=== PATIENT | female | born 1935 | race Caucasian/White ===

== ENCOUNTER 2017-11-20 08:52 | Observation (INO) | payer OTHER, BC ==
[2017-11-20] MEDS ORDERED: ALBUTEROL 2.5 MG/3 ML NEB SOL ONE (09:28)
[2017-11-20] MEDS ORDERED: IPRATROPIUM BROM 0.5MG/2.5ML ONE (09:28)
[2017-11-20] MEDS ORDERED: CEFTRIAXONE/SWI 1gm 1 GM/10 ML SYR ONE ×2 (09:28→10:57)
[2017-11-20] MEDS ORDERED: NA CHLORIDE 0.9% 1,000 ML ONE ×2 (09:28→20:56)
[2017-11-20] MEDS ORDERED: AZITHROMYCIN 500 MG/250 ML BAG ONE (09:28)
[2017-11-20 09:34] LABS: Absolute Lymphocytes (CBC) 0.8 K/uL (0.7-4.9); Absolute Monocytes 1.2 K/uL (0.1-1.3); Absolute Neutrophil 15.6 K/uL (1.8-8.0); Basophils % 0.1 % (0-1.3); Hematocrit 39.6 % (36.0-45.0); Lymphocytes % 4.7 % (15.3-44.8); MCH 34.8 pg (27.0-35.0); MCV 97.4 fL (80-100); MPV 7.3 fL (7.6-11.3); RBC Red Blood Cell Count 4.06 M/uL (3.86-4.86)
[2017-11-20 09:55] LABS: Protime INR 1.11
[2017-11-20 10:01] LABS: ALT/SGPT 90 U/L (12-78); AST/SGOT 43 U/L (15-37); Albumin 3.4 g/dL (3.4-5.0); Alkaline Phosphatase 64 U/L (45-117); BUN Blood Urea Nitrogen 15 mg/dL (7-18); Bicarbonate 27 mmol/L (21-32); Bilirubin Direct 0.4 mg/dL (0-0.2); CKMB Creatine Kinase MB < 1.0 ng/mL (0.3-3.6); Creatine Phosphokinase 45 U/L (26-192); Glucose Level 131 mg/dL (74-106); Lipase 80 U/L (73-393); NT PRO-BNP 514 pg/mL (<450); Potassium 4.1 mmol/L (3.5-5.1); Sodium Level 140 mmol/L (136-145)
--- NOTE | 2017-11-20 10:29 | ER ---
Nurse's Notes [facility] Name: Batsheva Al Age: 81 yrs Sex: Female : 1935 Arrival Date: 11/20/2017 Time: 08:57 Bed 14 Private MD: Shaji Munguia Atiq Diagnosis: Fever, unspecified;Cough;Pneumonia due to other specified bacteria;Other chest pain-pleurtic Presentation: 11/20 00:03 Presenting complaint: Patient states: fever and chills last night, pain in right upper iw back with deep breathing. Initial Sepsis Screen: Does the patient meet any 2 criteria? No. Patient's initial sepsis screen is negative. Does the patient have a suspected source of infection? No. Patient's initial sepsis screen is negative. 09:03 Transition of care: patient was not received from another setting of care. Onset of tw2 symptoms was November 20, 2017. Risk Assessment: Do you want to hurt yourself or someone else? Patient reports no desire to harm self or others. Care prior to arrival: None. 09:03 Acuity: MORTEZA 3 tw2 09:03 Method Of Arrival: Ambulatory tw2 Historical: - Allergies: 09:09 No Known Allergies; tw2 - Home Meds: 09:09 metoprolol succinate 75 mg oral Tb24 1 tab once daily [Active]; losartan 50 mg oral tab tw2 1 tab once daily [Active]; ProAir HFA 90 mcg/actuation inhalation HFAA 1 puff every 4 hours [Active]; - PMHx: 09:09 Hypertension; Pneumonia; tw2 - PSHx: 09:09 Appendectomy; Hernia repair; Carotid surgery; tw2 09:09 foot surgery; tw2 - Immunization history:: Adult Immunizations up to date. - Ebola Screening: : Patient denies travel to an Ebola-affected area in the 21 days before illness onset. - Social history:: Smoking status: Patient/guardian denies using tobacco. Screenin:03 Abuse screen: Denies threats or abuse. Nutritional screening: No deficits noted. tw2 Tuberculosis screening: No symptoms or risk factors identified. Fall Risk None identified. Assessment: 09:05 General: Appears in no apparent distress. well groomed, Behavior is calm, cooperative, tw2 appropriate for age. Pain: Complains of pain in right posterior lower lobe and right posterior middle lobe. Neuro: Level of Consciousness is awake, alert, obeys commands, Oriented to person, place, time, situation. Cardiovascular: Denies chest pain, shortness of breath, Heart tones S1 S2 Capillary refill < 3 seconds Patient's skin is warm and dry. GI: No signs and/or symptoms were reported involving the gastrointestinal system. Abdomen is flat, Bowel sounds present X 4 quads. : No signs and/or symptoms were reported regarding the genitourinary system. EENT: Reports nasal congestion. Derm: No signs and/or symptoms reported regarding the dermatologic system. Derm: Skin is intact, is healthy with good turgor, Skin is pink, warm \T\ dry. Skin temperature is warm. 09:05 Respiratory: Airway is patent Respiratory effort is even, unlabored, Respiratory tw2 pattern is regular, symmetrical, Breath sounds with wheezes in right middle lobe and right lower lobe. 09:50 Reassessment: Patient appears in no apparent distress at this time. No changes from tw2 previously documented assessment. Patient and/or family updated on plan of care and expected duration. Pain level reassessed. Patient is alert, oriented x 3, equal unlabored respirations, skin warm/dry/pink. 10:05 Reassessment: xray at bedside at this time. tw2 11:11 Reassessment: Patient appears in no apparent distress at this time. No changes from tw2 previously documented assessment. Patient and/or family updated on plan of care and expected duration. Pain level reassessed. Patient is alert, oriented x 3, equal unlabored respirations, skin warm/dry/pink. Vital Signs: 09:06 BP 148 / 89; Pulse 79; Resp 17; Temp 99.1(O); Pulse Ox 96% on R/A; Pain 4/10; tw2 09:50 BP 122 / 65; Pulse 74; Resp 17; Pulse Ox 96% on R/A; tw2 11:11 BP 130 / 71; Pulse 78; Resp 17; Pulse Ox 95% ; tw2 ED Course: 08:57 Patient arrived in ED. rg4 08:57 Shaji Munguia MD is Private Physician. rg4 09:02 Maria L Pa RN is Primary Nurse. tw2 09:03 Arm band placed on. tw2 09:03 Bed in low position. Call light in reach. radiation monitor on. Pulse ox on. NIBP on. tw2 09:04 Triage completed. tw2 09:05 Niels Contreras MD is Attending Physician. [facility] 09:19 Radiology exam delayed due to lab results not completed at this time. (BUN/Creatinine). 2 09:24 Initial lab(s) drawn, by me, sent to lab. First set of blood cultures drawn by me. 3 Inserted saline lock: 20 gauge in right antecubital area, using aseptic technique. Blood collected. 09:39 Second set of blood cultures drawn by me, by venipuncture 23G to left ac. 3 09:46 Radiology exam delayed due to lab results not completed at this time. (BUN/Creatinine). 2 09:46 Blood Culture Adult (2) Sent. tw2 09:51 EKG done, by ED staff, reviewed by Niels Contreras MD. 3 10:00 Radiology exam delayed due to lab results not completed at this time. (BUN/Creatinine). 2 10:13 X-ray completed. Portable x-ray completed in exam room. Patient tolerated procedure ag1 well. 10:[address] via stretcher. 1 10:16 XRAY Chest (1 view) In Process Unspecified. EDMS 10:17 CT completed. Patient tolerated procedure well. Patient moved back from CT. 1 10:20 CT Chest For PE Angio In Process Unspecified. EDMS 10:26 Lily Shaikh MD is Hospitalizing Provider. [facility] 11:10 Urine collected: clean catch specimen, brenda colored. 3 11:18 No provider procedures requiring assistance completed. Patient admitted, IV remains in tw2 place. Administered Medications: 09:30 Drug: Rocephin - (cefTRIAXone) 1 grams {Note: IVP available only, provider aware.} tw2 Route: IVPB; Infused Over: 5 mins; Site: right antecubital; 09:46 Follow up: Response: No adverse reaction; IV Status: Completed infusion tw2 09:30 Drug: Albuterol 2.5 mg Route: Inhalation; tw2 09:30 Drug: AtroVENT Aerosol 0.5 mg Route: Inhalation; tw2 09:46 Drug: NS 0.9% 500 ml Route: IV; Rate: bolus; Site: right antecubital; tw2 10:07 Follow up: Response: No adverse reaction; IV Status: Completed infusion; IV Intake: tw2 500ml 09:46 Drug: NS 0.9% 1000 ml Route: IV; Rate: 125 ml/hr; Site: right antecubital; tw2 11:22 Follow up: IV Status: Infusion continued upon admission tw2 09:46 Drug: Zithromax 500 mg Route: IVPB; Infused Over: 1 hrs; Site: right antecubital; tw2 11:10 Follow up: Response: No adverse reaction; IV Status: Completed infusion tw2 11:00 Drug: Rocephin - (cefTRIAXone) 1 grams {Note: ivp availble only, provider aware.} tw2 Route: IVPB; Infused Over: 5 mins; Site: right antecubital; 11:09 Follow up: Response: No adverse reaction; IV Status: Completed infusion tw2 Intake: 10:07 IV: 500ml; Total: 500ml. tw2 Outcome: 10:28 Decision to Hospitalize by Provider. francisco 11:22 Admitted to Med/surg accompanied by tech, via wheelchair, room 211, Report called to tw2 tawnya Banks 11:22 Condition: stable 11:22 Instructed on the need for admit. 11:27 Patient left the ED. tw2 Signatures: Dispatcher [employer] EDMS Niels Contreras MD MD cha Williams, Irene, RN Debbie Romero cw1 Patricia Pretty1 Maria L Pa RN RN tw2 Naheed Ya4 Sera Jones 2 Trena Ivory 3 Corrections: (The following items were deleted from the chart) 09:07 09:06 BP 148 / 89; Pulse 79bpm; Resp 17bpm; Pulse Ox 96% RA; Temp 99.1F Oral; tw2 tw2 09:53 09:05 Respiratory: Airway is patent Respiratory effort is even, unlabored, Respiratory tw2 pattern is regular, symmetrical, Breath sounds are clear bilaterally. tw2
--- NOTE | 2017-11-20 10:29 | EDPHYS ---
Physician Documentation [facility] Name: Batsheva Al Age: 81 yrs Sex: Female : 1935 Arrival Date: 11/20/2017 Time: 08:57 Bed 14 Private MD: Shaji Munguia Atiq ED Physician Niels Contreras HPI: 11/20 09:15 This 81 yrs old Female presents to ER via Ambulatory with complaints of francisco Fever, Back Pain. 09:15 The patient reports fever, that was measured at 102 degrees Fahrenheit. Onset: The francisco symptoms/episode began/occurred 2 day(s) ago. Modifying factors: there are no obvious modifying factors. Associated signs and symptoms: Pertinent positives:. Severity of symptoms: At their worst the symptoms were mild moderate in the emergency department the symptoms are unchanged. The patient has not experienced similar symptoms in the past. Historical: - Allergies: 09:09 No Known Allergies; tw2 - Home Meds: 09:09 metoprolol succinate 75 mg oral Tb24 1 tab once daily [Active]; losartan 50 mg oral tab tw2 1 tab once daily [Active]; ProAir HFA 90 mcg/actuation inhalation HFAA 1 puff every 4 hours [Active]; - PMHx: 09:09 Hypertension; Pneumonia; tw2 - PSHx: 09:09 Appendectomy; Hernia repair; Carotid surgery; tw2 09:09 foot surgery; tw2 - Immunization history:: Adult Immunizations up to date. - Ebola Screening: : Patient denies travel to an Ebola-affected area in the 21 days before illness onset. - Social history:: Smoking status: Patient/guardian denies using tobacco. ROS: 09:16 Eyes: Negative for injury, pain, redness, and discharge, ENT: Negative for injury, francisco pain, and discharge, Neck: Negative for injury, pain, and swelling, Cardiovascular: Negative for chest pain, palpitations, and edema, Abdomen/GI: Negative for abdominal pain, nausea, vomiting, diarrhea, and constipation, Back: Negative for injury and pain, : Negative for injury, bleeding, discharge, and swelling, MS/Extremity: Negative for injury and deformity, Skin: Negative for injury, rash, and discoloration, Neuro: Negative for headache, weakness, numbness, tingling, and seizure, Psych: Negative for depression, anxiety, suicide ideation, homicidal ideation, and hallucinations, Allergy/Immunology: Negative for hives, rash, and allergies, Endocrine: Negative for neck swelling, polydipsia, polyuria, polyphagia, and marked weight changes, Hematologic/Lymphatic: Negative for swollen nodes, abnormal bleeding, and unusual bruising. 09:16 Constitutional: Positive for chills, fever. 09:16 Respiratory: Positive for dyspnea on exertion, shortness of breath, wheezing, expiratory, of the right posterior middle lobe and right posterior lower lobe. Exam: 09:16 Constitutional: This is a well developed, well nourished patient who is awake, alert, francisco and in no acute distress. Head/Face: Normocephalic, atraumatic. Eyes: Pupils equal round and reactive to light, extra-ocular motions intact. Lids and lashes normal. Conjunctiva and sclera are non-icteric and not injected. Cornea within normal limits. Periorbital areas with no swelling, redness, or edema. ENT: Nares patent. No nasal discharge, no septal abnormalities noted. Tympanic membranes are normal and external auditory canals are clear. Oropharynx with no redness, swelling, or masses, exudates, or evidence of obstruction, uvula midline. Mucous membranes moist. Neck: Trachea midline, no thyromegaly or masses palpated, and no cervical lymphadenopathy. Supple, full range of motion without nuchal rigidity, or vertebral point tenderness. No Meningismus. Chest/axilla: Normal chest wall appearance and motion. Nontender with no deformity. No lesions are appreciated. Cardiovascular: Regular rate and rhythm with a normal S1 and S2. No gallops, murmurs, or rubs. Normal PMI, no JVD. No pulse deficits. Abdomen/GI: Soft, non-tender, with normal bowel sounds. No distension or tympany. No guarding or rebound. No evidence of tenderness throughout. Back: No spinal tenderness. No costovertebral tenderness. Full range of motion. Female : Normal external genitalia. Skin: Warm, dry with normal turgor. Normal color with no rashes, no lesions, and no evidence of cellulitis. MS/ Extremity: Pulses equal, no cyanosis. Neurovascular intact. Full, normal range of motion. Neuro: Awake and alert, GCS 15, oriented to person, place, time, and situation. Cranial nerves II-XII grossly intact. Motor strength 5/5 in all extremities. Sensory grossly intact. Cerebellar exam normal. Normal gait. Psych: Awake, alert, with orientation to person, place and time. Behavior, mood, and affect are within normal limits. 09:16 Respiratory: the patient does not display signs of respiratory distress, Respirations: normal, Breath sounds: rales, that are mild, that are moderate, are heard in the right posterior middle lobe and right posterior lower lobe, bronchial sounds, decreased breath sounds, rhonchi. Vital Signs: 09:06 BP 148 / 89; Pulse 79; Resp 17; Temp 99.1(O); Pulse Ox 96% on R/A; Pain 4/10; tw2 09:50 BP 122 / 65; Pulse 74; Resp 17; Pulse Ox 96% on R/A; tw2 11:11 BP 130 / 71; Pulse 78; Resp 17; Pulse Ox 95% ; tw2 MDM: 09:05 Patient medically screened. [facility] 09:18 Data reviewed: vital signs, nurses notes, lab test result(s), EKG, radiologic studies, [facility] CT scan, plain films. 11/20 09:13 Order name: Basic Metabolic Panel; Complete Time: 10:23 [facility] 11/20 09:13 Order name: CBC with Diff [facility] 11/20 09:13 Order name: Ckmb; Complete Time: 10:23 [facility] 11/20 09:13 Order name: CPK; Complete Time: 10:23 [facility] 11/20 09:13 Order name: LFT's; Complete Time: 10:23 [facility] 11/20 09:13 Order name: Magnesium; Complete Time: 10:23 [facility] 11/20 09:13 Order name: NT PRO-BNP; Complete Time: 10:23 [facility] 11/20 09:13 Order name: PT-INR; Complete Time: 10:23 [facility] 11/20 09:13 Order name: Ptt, Activated; Complete Time: 10:23 [facility] 11/20 09:13 Order name: Troponin (emerg Dept Use Only); Complete Time: 10:23 [facility] 11/20 09:13 Order name: Lipase; Complete Time: 10:23 [facility] 11/20 09:13 Order name: Blood Culture Adult (2) [facility] 11/20 09:48 Order name: CBC Smear Scan [facility] 11/20 11:16 Order name: Urine Dipstick--Ancillary (enter results) mb4 11/20 09:13 Order name: XRAY Chest (1 view) [facility] 11/20 09:13 Order name: EKG; Complete Time: 09:14 [facility] 11/20 09:13 Order name: Cardiac monitoring; Complete Time: 09:22 [facility] 11/20 09:13 Order name: EKG - Nurse/Tech; Complete Time: 09:50 [facility] 11/20 09:13 Order name: IV Saline Lock; Complete Time: 09:41 [facility] 11/20 09:13 Order name: CT Chest For PE Angio [facility] 11/20 09:59 Order name: Diet Ada [address]; Complete Time: 10:00 11/20 10:45 Order name: CONS Physician Consult [facility] 11/20 11:20 Order name: Urine Dipstick-Ancillary [facility] 11/20 09:13 Order name: Labs collected and sent; Complete Time: 09:41 [facility] 11/20 09:13 Order name: O2 Per Protocol; Complete Time: 09:22 [facility] 11/20 09:13 Order name: O2 Sat Monitoring; Complete Time: 09:22 [facility] 11/20 09:13 Order name: Urine Dipstick-Ancillary (obtain specimen); Complete Time: 11:11 [facility] Administered Medications: 09:30 Drug: Rocephin - (cefTRIAXone) 1 grams {Note: IVP available only, provider aware.} tw2 Route: IVPB; Infused Over: 5 mins; Site: right antecubital; 09:46 Follow up: Response: No adverse reaction; IV Status: Completed infusion tw2 09:30 Drug: Albuterol 2.5 mg Route: Inhalation; tw2 09:30 Drug: AtroVENT Aerosol 0.5 mg Route: Inhalation; tw2 09:46 Drug: NS 0.9% 500 ml Route: IV; Rate: bolus; Site: right antecubital; tw2 10:07 Follow up: Response: No adverse reaction; IV Status: Completed infusion; IV Intake: tw2 500ml 09:46 Drug: NS 0.9% 1000 ml Route: IV; Rate: 125 ml/hr; Site: right antecubital; tw2 11:22 Follow up: IV Status: Infusion continued upon admission tw2 09:46 Drug: Zithromax 500 mg Route: IVPB; Infused Over: 1 hrs; Site: right antecubital; tw2 11:10 Follow up: Response: No adverse reaction; IV Status: Completed infusion tw2 11:00 Drug: Rocephin - (cefTRIAXone) 1 grams {Note: ivp availble only, provider aware.} tw2 Route: IVPB; Infused Over: 5 mins; Site: right antecubital; 11:09 Follow up: Response: No adverse reaction; IV Status: Completed infusion tw2 Disposition: 11/20/17 10:28 Hospitalization ordered by Lily Shaikh for Inpatient Admission. Preliminary diagnosis are Fever, unspecified, Cough, Pneumonia due to other specified bacteria, Other chest pain - pleurtic. - Bed requested for Telemetry/MedSurg (Inpatient). - Status is Inpatient Admission. tw2 - Condition is Stable. - Problem is new. - Symptoms have improved. UTI on Admission? No Signatures: Dispatcher [employer] EDTiffanie Eastman RN RN Niels Leung MD MD cha Wise, Tara, RN RN tw2 Corrections: (The following items were deleted from the chart) 11:11 10:28 Hospitalization Ordered by Lily Shaikh MD for Inpatient Admission. dw Preliminary diagnosis is Fever, unspecified; Cough; Pneumonia due to other specified bacteria; Other chest pain - pleurtic. Bed requested for Telemetry/MedSurg (Inpatient). Status is Inpatient Admission. Condition is Stable. Problem is new. Symptoms have improved. UTI on Admission? No. francisco 11:27 11:11 11/20/2017 10:28 Hospitalization Ordered by Lily Shaikh MD for Inpatient tw2 Admission. Preliminary diagnosis is Fever, unspecified; Cough; Pneumonia due to other specified bacteria; Other chest pain - pleurtic. Bed requested for Telemetry/MedSurg (Inpatient). Status is Inpatient Admission. Condition is Stable. Problem is new. Symptoms have improved. UTI on Admission? No. dw
--- NOTE | 2017-11-20 10:30 | RAD REPORT ---
EXAM DESCRIPTION: CT - Chest For Pe Angio - 11/20/2017 10:20 am CLINICAL HISTORY: Chest pain. CHEST PAIN COMPARISON: Chest Single View dated 11/20/2017 TECHNIQUE: CT angiogram of the pulmonary arteries was performed with MIP. All CT scans are performed using dose optimization technique as appropriate and may include automated exposure control or mA/KV adjustment according to patient size. FINDINGS: Respiratory artifact is present, reducing study quality. No evidence of pulmonary thromboembolism. No acute aortic finding demonstrated. Moderate airspace opacities are present in the right lower lobe posteriorly, most compatible with dev eloping pneumonia. No significant pericardial or pleural fluid. No concerning bony finding. IMPRESSION: No evidence of pulmonary thromboembolism. Moderate airspace opacity in the right lower lobe posteriorly, most compatible with developing pneumo milady.
--- NOTE | 2017-11-20 11:09 | RAD REPORT ---
EXAM DESCRIPTION: RAD - Chest Single View - 11/20/2017 10:17 am CLINICAL HISTORY: COUGH Chest pain. COMPARISON: CHEST PA AND LAT 2 VIEW dated 01/14/2009; CHEST PA AND LAT 2 VIEW dated 09/25/2004 FINDINGS: Portable technique limits examination quality. Ill-defined opacities are present in the right lung base, likely representing pneumonia. The lungs ar e otherwise clear. The heart is normal in size. No displaced fractures. IMPRESSION: Right lower lobe pneumonia.
[2017-11-20 11:20] LABS: Urine Blood NEGATIVE (NEG); Urine Glucose NEGATIVE (NEG); Urine Protein NEGATIVE (NEG); Urine pH 6.5 (5.0-7.0)
[2017-11-20] MEDS ORDERED: ACETAMINOPHEN 500 MG TAB PO PRN (12:02)
[2017-11-20] MEDS ORDERED: ONDANSETRON 4 MG/2 ML VIAL IV PRN (12:02)
[2017-11-20] MEDS ORDERED: ZOLPIDEM TARTRATE 5 MG TABLET PO PRN (12:02)
[2017-11-20 12:50] VITALS: BMI 25.8
--- NOTE | 2017-11-20 13:09 | PN ---
Subjective: Currently, the patient lying in bed. She will need to have massive amount of diarrhea, 8 bowel movements yesterday, 3 this morning. She continued to have abdominal cramps. No fever or ch ills. No night sweats. No nausea, vomiting. Objective: Vital Signs: Currently, vital signs 130/84, respiratory rate 18, pulse 78, temperature 9 6.8. General: The patient alert and oriented x3, does not look in any distress. HEENT: Atraumatic, normocephalic. PERRLA. Oral mucosa is moist. Neck: Supple. No JVD. No carotid bruits. Chest: Clear to auscultation. Good air entry. Heart: Regular rate and rhythm. S1, S2 normal. No gallop or murmur. Abdomen: Minimal tenderness to palpation in the epigastric area. No rebound. No guarding. Positiv e bowel sounds. Extremities: No clubbing, cyanosis, or edema. No calf tenderness. Laboratory Data: Labs today showed CBC within normal. CMP within normal except for chloride 116, ca rbon dioxide 20, glucose 129, calcium 7.3, alkaline phosphatase 44, globulin 3.6. Stool culture was positive for C diff. Urine culture showed between 10,000 and 20,000 colony of mixed dragan. Assessment And Plan: 1.Zukel-nm-tiyydmf exacerbation. I doubt the patient had diarrhea most likely secondary to her Clos tridium difficile. I will try to switch her methylprednisone to oral prednisone at this point. 2.Clostridium difficile colitis. Continue oral vancomycin. The patient is not doing much better. We will continue observation in the hospital overnight and keep her on IV hydration given severity of diarrhea. The patient want Imodium, but we could not offer that due to the Clostridium difficile. 3.Intractable nausea, vomiting, improved. 4.History of parathyroidectomy. 5.Hypercalcemia, we will replace. 6.Symptomatic treatment for pain. 7.Insomnia, continue Restoril. 8.History of migraine, on Imitrex. 9.Discharge plan in the a.m. hopefully if the patient's diarrhea getting better. ANDREWS/ANISHA Voice ID: [id number] Report ID: [id number]
[2017-11-20 13:20] LABS: Blood Morphology Comment NOT SEEN (NOT SEEN); Platelet Estimate ADEQ; Urine White Blood Cell Casts OK
[2017-11-20] MEDS ORDERED: TRAMADOL HCL 50 MG TAB PO PRN (13:40)
[2017-11-20 13:54] LABS: Albumin 3.1 g/dL (3.4-5.0); Bilirubin Total 0.5 mg/dL (0.2-1.0); Potassium 4.4 mmol/L (3.5-5.1); Protein, Total 6.4 g/dL (6.4-8.2)
[2017-11-20] MEDS ORDERED: PNEUMOCOCCAL VACCINE 0.5 ML IMVAC ONE (14:00)
[2017-11-20] MEDS: ALBUTEROL 2.5 MG/3 ML NEB SOL NEB SCH ×2 (14:14→19:48)
--- NOTE | 2017-11-20 15:20 | HP ---
Date of Admission: 11/20/2017 Reason For Admission: Fever, back pain, cough. History Of Present Illness: This is an 81-year-old female with history of hypertension, pneumonia, p eripheral vascular disease, presented with history of 2 days of progressive fever, temperature up to 102 in the emergency room, cough with white sputum, back pain. In the ER, she was evaluated. Her wh ite blood cells were all the way to 17,000 with left shift. X-ray and CAT scan of the chest done nikolai wed no PE but moderate airspace opacities in the right lower lobe posteriorly compatible with pneumon ia. The patient was started on IV antibiotic with ceftriaxone and Zithromax. She was admitted for f urther treatment. Currently, she is lying in bed. She looks comfortable. She had no chest pain. N o nausea. No vomiting. No abdominal pain. No diarrhea. No dysuria. Review of systems, otherwise as below. Past Medical History: Significant for hypertension, pneumonia. Past Surgical History: Significant for appendectomy, hernia repair, carotid surgery, foot surgery. Allergies: NONE. Social History: The patient is . She has 2 kids. 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 She does not smoke, drink, or use any drugs. Family History: Significant for father of breast cancer. Mother of old age. Home Medications: She is on metoprolol 25 mg orally once a day, ProAir inhaler 1 puff every 4 hours as needed, losartan 50 mg once a day. Review of Systems: Denies any change in weight or appetite. She has fever and chills. No night sweats. No syncope. S he have cough. No shortness of breath. No nausea, vomiting, abdominal pain, change in bowel movemen t, diarrhea, constipation, dysuria, frequency, urgency, or hematuria. No chest pain. No palpitation s. No PND or orthopnea. No depression, anxiety, seizure, or stroke. Physical Examination: Vital Signs: Currently blood pressure is 130/71, respiratory rate 17, pulse 78, temperature 99.1. General: The patient is alert and oriented x3. Does not look in any distress. HEENT: Atraumatic, normocephalic. PERRLA. Oral mucosa is moist. Neck: Supple. No JVD. No carotid bruits. Chest: Clear to auscultation with her right lower lobe crackles. There is no expiratory wheezing. Heart: Regular rate and rhythm. S1, S2 normal. No gallop or murmur. Abdomen: Soft, nontender. No masses. No hepatosplenomegaly. Positive bowel sounds. Extremities: No clubbing, cyanosis, or edema. No calf tenderness. Neurologic: Grossly intact. Cranial nerves exam 2 through 12 intact. Normal sensation. Normal ref lexes. Normal muscle strength. Laboratory Data: Labs today in the emergency room showed white blood cells 17.7, left shift with oli trophils of 88.6, hemoglobin and platelet normal. PT/INR within normal. Chemistry showed all within normal except for GFR of 60, glucose 131, direct bilirubin 0.4, AST of 43, ALT of 90. BNP of 514, g lobulin 3.6, lipase of 80. Assessment/plan: An 81-year-old with past medical history of hypertension, pneumonia, presented agai n with fever, cough, and found to have right lower lobe infiltrate. 1.Right lower lobe pneumonia. We will continue IV antibiotic with ceftriaxone and Zithromax. Blood culture already done. We will proceed with sputum culture. Place patient on nebulizer every 6 hour s. 2.Elevated BNP. I will check echocardiogram. 3.Hypertension. We will resume patient on losartan and metoprolol. 4.Deep vein thrombosis prophylaxis, Lovenox. 5.Symptomatic treatment for back pain. ROYAL Voice ID: [id number]
[2017-11-20] MEDS ORDERED: IPRATROPIUM BROM 0.5MG/2.5ML NEB SCH (16:00)
[2017-11-20] MEDS: ENOXAPARIN 40 MG/0.4 ML SQ SCH (18:25)
[2017-11-20] MEDS: IPRATROPIUM BROM 0.5MG/2.5ML NEB SCH (19:48)
[2017-11-20] MEDS: METOPROLOL TAR 25 MG TAB PO SCH (20:38)
[2017-11-20] MEDS: CEFTRIAXONE/SWI 1gm 1 GM/10 ML SYR IV SCH (20:39)
[2017-11-20] MEDS ORDERED: NA CHLORIDE 0.9% 250 ML IV PRN (20:51)
[2017-11-20] MEDS ORDERED: NA CHLORIDE 0.9% 250 ML IV ONE (20:55)
[2017-11-20] MEDS: NA CHLORIDE 0.9% 1,000 ML IV SCH (21:30)
[2017-11-21 00:46] LABS: Absolute Lymphocytes (CBC) 2.6 K/uL (0.7-4.9); Absolute Neutrophil 9.9 K/uL (1.8-8.0); Basophils % 0.4 % (0-1.3); Eosinophils % 0.3 % (0-4.4); Hematocrit 34.1 % (36.0-45.0); Lymphocytes % 19.4 % (15.3-44.8); MCH 34.3 pg (27.0-35.0); MPV 8.2 fL (7.6-11.3); Monocytes % 7.5 % (3.3-12.3); RBC Red Blood Cell Count 3.45 M/uL (3.86-4.86)
[2017-11-21 01:05] LABS: Albumin 2.7 g/dL (3.4-5.0); Bilirubin Total 0.6 mg/dL (0.2-1.0); Potassium 3.6 mmol/L (3.5-5.1); Protein, Total 5.8 g/dL (6.4-8.2)
[2017-11-21] MEDS: IPRATROPIUM BROM 0.5MG/2.5ML NEB SCH ×4 (02:00→19:29)
[2017-11-21] MEDS: ALBUTEROL 2.5 MG/3 ML NEB SOL NEB SCH ×4 (02:00→19:29)
[2017-11-21 05:24] LABS: Absolute Lymphocytes (CBC) 2.3 K/uL (0.7-4.9); Absolute Monocytes 0.8 K/uL (0.1-1.3); Absolute Neutrophil 7.1 K/uL (1.8-8.0); Basophils % 0.2 % (0-1.3); Eosinophils % 1.1 % (0-4.4); Hematocrit 35.5 % (36.0-45.0); Lymphocytes % 22.1 % (15.3-44.8); MCH 35.3 pg (27.0-35.0); MCV 98.9 fL (80-100); MPV 7.8 fL (7.6-11.3); Monocytes % 7.6 % (3.3-12.3); RBC Red Blood Cell Count 3.59 M/uL (3.86-4.86)
[2017-11-21] MEDS: NA CHLORIDE 0.9% 1,000 ML IV SCH ×2 (05:35→10:20)
[2017-11-21] MEDS: CEFTRIAXONE/SWI 1gm 1 GM/10 ML SYR IV SCH ×2 (09:00→20:52)
[2017-11-21] MEDS: METOPROLOL TAR 50 MG TAB PO SCH ×2 (09:04→16:58)
[2017-11-21] MEDS: AZITHROMYCIN IV 500 MG in NA CHLORIDE 0.9% 250 ML IVPB SCH (09:05)
[2017-11-21] MEDS: LOSARTAN POTASSIUM 50 MG TABLET PO SCH (09:07)
--- NOTE | 2017-11-21 10:34 | EKG ---
Test Date: 2017-11-20 Test Time: 20:36:56 Crown Presser: FLOWER MEASUREMENT RESULTS: Intervals: Rate: 101 PA: 132 QRSD: 134 QT: 394 QTc: 510 [place]: P: 58 PA: 132 QRS: 82 T: 21 INTERPRETIVE STATEMENTS: Sinus tachycardia with premature atrial complexes with aberrant conduction Possible Left atrial enlargement Right bundle branch block Abnormal ECG Compared to ECG 11/20/2017 09:46:36 Atrial premature complex(es) now present Aberrant conduction of supraventricular beat(s) now present Sinus rhythm no longer present Electronically Signed On 11-21-17 10:33:53 CDT by Slick Hernandez
--- NOTE | 2017-11-21 10:40 | EKG ---
Test Date: 2017-11-20 Test Time: 09:46:36 [place] Chief: STEFAN MEASUREMENT RESULTS: Intervals: Rate: 75 [place]: 138 QRSD: 130 QT: 386 QTc: 431 [place]: P: 41 [place]: 138 QRS: 79 T: 33 INTERPRETIVE STATEMENTS: Normal sinus rhythm Possible Left atrial enlargement Right bundle branch block Abnormal ECG Compared to ECG 01/14/2009 08:10:32 Right bundle-branch block now present Electronically Signed On 11-21-17 10:39:47 CDT by Slick Hernandez
--- NOTE | 2017-11-21 11:40 | CON ---
Reason For Consultation: Abnormal N-terminal proBNP. History Of Present Illness: Mrs. Al came to the hospital with cough, fevers. She has a pulmonary infiltrate. She is being treated for pneumonia. One of the blood tests they did on admission was a n N-terminal proBNP, it is 514. We have no BNPs or N-terminal proBNPs before. She is normally a pat ient of Dr. Sánchez. She is known to have a leaky mitral valve, it does not require surgery. She daniel s had a right carotid endarterectomy. No CAD. No previous history of CHF. Medications: Outpatient medications have been metoprolol, losartan, and budesonide. Social History: She uses no tobacco. Past Medical History: Does not have diabetes or dyslipidemia. Allergies: NO KNOWN ALLERGIES. Physical Examination: Vital Signs: 5 feet 7 inches, 165 pounds. HEENT: Normal. Carotids: No bruit. Lungs: Revealed some decreased breath sounds and crackles in the right lung base. Abdomen: Soft. Heart: Within normal limits. No murmur, rub, or gallop. Extremities: No cyanosis, clubbing, or edema. Diagnostic Data: The chest x-ray reveals right lower lobe pneumonia, otherwise it is normal. Impression: The patient's N-terminal proBNP is elevated because of increased strain on the heart. T his could be from having pneumonia. She may have significant valvular heart disease, but it is more likely to be pneumonia. She does not have any congestive heart failure symptoms. Echocardiogram jil orrow would be useful to do. I will order that for tomorrow. If she is otherwise stable to be discha rged. She does not have to stay in the hospital to do the echocardiogram. Thank you very much for your kind referral of Mrs. Al. I will follow her with you. KELSEY/ANISHA Voice ID: [id number] Report ID: [id number]
[2017-11-21 13:15] LABS: T4,Total 6.4 ug/dL (4.8-13.9); Thyroid Stimulating Hormone 2.65 uIU/mL (0.36-3.74)
--- NOTE | 2017-11-21 13:52 | PN ---
Subjective: Currently, the patient is lying in bed. She looks comfortable. She has no shortness of breath. No chest pain. Overnight, she had episode of AFib and atrial flutter. Her echocardiogram is still pending. She was seen by Dr. Hernandez this morning. Her daughter is at the bedside. Objective: Vital Signs: Blood pressure 120/58, respiratory rate 20, heart rate 98, temperature 98.2 . General: She is alert and oriented x3. Does not look in any distress. She is on room air. HEENT: Atraumatic, normocephalic. Oral mucosa is moist. Neck: Supple. No JVD. No bruits. Chest: Clear to auscultation with bibasilar crackles in the right side. There is no expiratory whee zing. Heart: Regular rate and rhythm this morning. No gallop. Abdomen: Soft, nontender. No masses. Positive bowel sounds. Extremities: No clubbing, cyanosis, or edema. No calf tenderness. Neurologic: Grossly intact. Laboratory Data: Labs this morning, CBC; white blood cells down to 10.2 which is normal, hemoglobin 12.7, platelets 181. Chemistry within normal, except for a creatinine clearance of 69, glucose 112. Assessment And Plan: 1.Right lower lobe pneumonia. We will continue IV antibiotic. White blood cell is down to normal. Culture so far all negative. The patient's cough improved significantly. 2.Elevated BNP. Echocardiogram ordered in a.m. The patient had episode of atrial fibrillation with rapid ventricular response yesterday. I am not sure if that is related to her inhalers, but Cardiol ogy consult requested by Dr. Dolan and Dr. Hernandez to see the patient. 3.Hypertension history, well controlled with home medications. 4.Deep vein thrombosis prophylaxis with Lovenox. 5.Back pain, chronic, improved. Plan: Hopefully to discharge in a.m. if Cardiology clears the patient after echocardiogram done. We will check TSH today. Given the episode of atrial fibrillation and flutter last night, electrolytes all within normal limits otherwise. ANDREWS/ANISHA Voice ID: [id number] Report ID: [id number]
[2017-11-21] MEDS: ENOXAPARIN 40 MG/0.4 ML SQ SCH (16:59)
[2017-11-21] MEDS: METOPROLOL TAR 25 MG TAB PO SCH (17:02)
[2017-11-22] MEDS: ALBUTEROL 2.5 MG/3 ML NEB SOL NEB SCH ×2 (01:13→08:05)
[2017-11-22] MEDS: IPRATROPIUM BROM 0.5MG/2.5ML NEB SCH ×2 (01:13→08:05)
[2017-11-22] MEDS: METOPROLOL TAR 25 MG TAB PO SCH (05:42)
[2017-11-22] MEDS: AZITHROMYCIN IV 500 MG in NA CHLORIDE 0.9% 250 ML IVPB SCH (08:59)
[2017-11-22] MEDS: CEFTRIAXONE/SWI 1gm 1 GM/10 ML SYR IV SCH (08:59)
[2017-11-22] MEDS: LOSARTAN POTASSIUM 50 MG TABLET PO SCH (09:00)
--- NOTE | 2017-11-22 09:01 | RAD REPORT ---
EXAM DESCRIPTION: RAD - Chest Pa And Lat (2 Views) - 11/22/2017 8:48 am CLINICAL HISTORY: Follow up RLL pneumonia Chest pain. COMPARISON: Chest Single View dated 11/20/2017; CHEST PA AND LAT 2 VIEW dated 01/14/2009; CHEST PA AND LAT 2 VIEW dated 09/25/2004 FINDINGS: Ill-defined reticular opacities are noted in the right lung base laterally, appearing mild ly improved since comparative study. This is compatible with mild improvement in pneumonia. The heart is normal in size. No displaced fractures. IMPRESSION: Mild improvement in right lower lobe pneumonia since comparative study.
[2017-11-22 10:00] VITALS: O2SAT 93
--- NOTE | 2017-11-22 11:02 | P.DS ---
Admission Date: 11/20/17 Discharge Date: 11/22/17 Primary Care Provider: Dr. Munguia(Ira Renteria NP); Cardiology-Dr. Sánchez Disposition: ROUTINE DISCHARGE Discharge Condition: GOOD Reason for Admission: Cough, SOB, Fever Consultations: Cardiology-Dr. Hernandez Procedures: CT chest: COMPARISON: Chest Single View dated 11/20/2017 TECHNIQUE: CT angiogram of the pulmonary arteries was performed with MIP. All CT scans are performed using dose optimization technique as appropriate and may include automated exposure control or mA/KV adjustment according to patient size. FINDINGS: Respiratory artifact is present, reducing study quality. No evidence of pulmonary thromboembolism. No acute aortic finding demonstrated. Moderate airspace opacities are present in the right lower lobe posteriorly, most compatible with developing pneumonia. No significant pericardial or pleural fluid. No concerning bony finding. IMPRESSION: No evidence of pulmonary thromboembolism. Moderate airspace opacity in the right lower lobe posteriorly, most compatible with developing pneumonia. Chest x-ray: COMPARISON: Chest Single View dated 11/20/2017; CHEST PA AND LAT 2 VIEW dated ; CHEST PA AND LAT 2 VIEW dated 09/25/2004 FINDINGS: Ill-defined reticular opacities are noted in the right lung base laterally, appearing mildly improved since comparative study. This is compatible with mild improvement in pneumonia. The heart is normal in size. No displaced fractures. IMPRESSION: Mild improvement in right lower lobe pneumonia since comparative study. - Problems (1) Hypertension Onset Date: 11/22/17 Current Visit: Yes Status: Chronic Qualifiers: Hypertension type: essential hypertension Qualified Code(s): I10 - Essential (primary) hypertension (2) RLL pneumonia Onset Date: 11/22/17 Current Visit: Yes Status: Acute Qualifiers: Pneumonia type: due to unspecified organism Qualified Code(s): J18.1 - Lobar pneumonia, unspecified organism (3) COPD (chronic obstructive pulmonary disease) Current Visit: Yes Status: Chronic Qualifiers: COPD type: chronic bronchitis Chronic bronchitis type: unspecified Qualified Code(s): J42 - Unspecified chronic bronchitis Brief History of Present Illness: 81-year-old female with history of hypertension and COPD, presented to the emergency room with cough, fever and shortness of breath. Patient found to have right lower lobe pneumonia. Patient was admitted for treatment. Hospital Course: Patient presented with cough, shortness of breath and fever. Patient found to have right lower lobe pneumonia. Patient has done well. Patient does not require oxygen at discharge. At discharge she will continue with Levaquin 500 mg daily for 7 days. Tessalon Perles 100 mg 1 pill 3 times a day as needed for cough will be provided. Recommendation to recheck chest x-ray in 2-4 weeks to monitor resolution. Patient has COPD. Medications have been adjusted. Patient will continue with Symbicort at a higher dose of 160 mcg 2 puffs twice daily and Proair HFA 3 times a day as needed for shortness of breath. Recommendation is for the patient follow up with pulmonology in 1-2 weeks to follow up this hospitalization. As recommended above, chest x-ray will need to be recheck in 2 -4 weeks to monitor resolution. Patient has hypertension. She will continue with her medication including losartan 50 mg daily and metoprolol 50 mg daily and 25 mg of metoprolol at night. Recommendation is to maintain blood pressures less 150/80. Further adjustment can be done by her PCP. Patient was evaluated by cardiology to address her elevated BNP. This is likely from stress related to pneumonia. An echocardiogram was done. This can be followed up by her hardboard coating machine operator as an outpatient. Patient will follow up with her hardboard coating machine operator as directed. Recommendation to continue with aspirin 81 mg daily. Vital Signs/Physical Exam: Temp Pulse Resp BP Pulse Ox 98.4 F 83 18 168/84 H 94 11/22/17 08:00 11/22/17 08:00 11/22/17 08:00 11/22/17 08:00 11/22/17 08:00 General: Alert, In no apparent distress, Oriented x3, Cooperative HEENT: Atraumatic Neck: Supple Respiratory: Crackles/rales (Minimal crackles to the right base), Other (Good air movement bilaterally) Cardiovascular: Normal pulses, Regular rate/rhythm Gastrointestinal: Normal bowel sounds, Soft and benign, Non-distended, No tenderness, No masses, No rebound, No guarding Musculoskeletal: No erythema, No tenderness, No warmth Integumentary: No tenderness/swelling, No erythema, No warmth, No cyanosis Neurological: Normal speech, Normal strength at 5/5 x4 extr, Normal tone, Normal affect Lymphatics: No axilla or inguinal lymphadenopathy Laboratory Data at Discharge: WBC 10.2 K/uL (4.3-10.9) D 11/21/17 04:48 Hgb 12.7 g/dL (12.0-15.0) 11/21/17 04:48 Hct 35.5 % (36.0-45.0) L 11/21/17 04:48 Plt Count 181 K/uL (152-406) 11/21/17 04:48 PT 13.1 SECONDS (9.5-12.5) H 11/20/17 09:24 INR 1.11 11/20/17 09:24 APTT 27.9 SECONDS (24.3-36.9) 11/20/17 09:24 Sodium 143 mmol/L (136-145) 11/20/17 23:48 Potassium 3.6 mmol/L (3.5-5.1) 11/20/17 23:48 BUN 12 mg/dL (7-18) 11/20/17 23:48 Creatinine 0.80 mg/dL (0.55-1.3) 11/20/17 23:48 Glucose 112 mg/dL (74-106) H 11/20/17 23:48 Magnesium 2.0 mg/dL (1.8-2.4) 11/20/17 09:24 Total Bilirubin 0.6 mg/dL (0.2-1.0) 11/20/17 23:48 AST 26 U/L (15-37) 11/20/17 23:48 ALT 61 U/L (12-78) 11/20/17 23:48 Alkaline Phosphatase 52 U/L (45-117) 11/20/17 23:48 Lipase 80 U/L (73-393) 11/20/17 09:24 Home Medications: Losartan Potassium [Cozaar*] 50 mg PO DAILY 11/20/17 Metoprolol Tartrate [Lopressor*] 25 mg PO BEDTIME 11/20/17 Metoprolol Tartrate [Lopressor] 50 mg PO DAILY 11/20/17 Albuterol Sulfate [Proair Hfa] 8.5 gm IH TID PRN #1 hfa.aer.ad 11/22/17 Aspirin [Aspirin EC 81 MG] 81 mg PO DAILY #90 tablet. 11/22/17 Budesonide/Formoterol Fumarate [Symbicort 160-4.5 Mcg Inhaler] 2 puff IH BID #1 hfa.aer.ad 11/22/17 Levofloxacin [Levaquin] 500 mg PO DAILY #7 tablet 11/22/17 New Medications: Albuterol Sulfate [Proair Hfa] 8.5 gm IH TID PRN #1 hfa.aer.ad PRN Reason: Shortness Of Breath Aspirin [Aspirin EC 81 MG] 81 mg PO DAILY #90 tablet. Budesonide/Formoterol Fumarate [Symbicort 160-4.5 Mcg Inhaler] 2 puff IH BID #1 hfa.aer.ad Levofloxacin [Levaquin] 500 mg PO DAILY #7 tablet Patient Discharge Instructions: 1. Patient will need to follow up with a PCP in 1 week to follow up this hospitalization. 2. Patient presented with cough, shortness of breath and fever. Patient found to have right lower lobe pneumonia. Patient has done well. Patient does not require oxygen at discharge. At discharge she will continue with Levaquin 500 mg daily for 7 days. Tessalon Perles 100 mg 1 pill 3 times a day as needed for cough will be provided. Recommendation to recheck chest x-ray in 2-4 weeks to monitor resolution. 3. Patient has COPD. Medications have been adjusted. Patient will continue with Symbicort at a higher dose of 160 mcg 2 puffs twice daily but bus 3 times a day as needed for shortness of breath. Recommendation is for the patient follow up with pulmonology in 1-2 weeks to follow up this hospitalization. As recommended above, chest x-ray will need to be recheck in 2 -4 weeks to monitor resolution. 4. Patient has hypertension. She will continue with her medication including losartan 50 mg daily and metoprolol 50 mg daily and 25 mg of metoprolol at night. Recommendation is to maintain blood pressures less 150/80. Further adjustment can be done by her PCP. 5. Patient will follow up with her hardboard coating machine operator as directed. Recommendation to continue with aspirin 81 mg daily. Diet: AHA Activity: Fall precautions Time spent managing pt's care (in minutes): 55
[2017-11-22] MEDS ORDERED: PNEUMOCOCCAL VACCINE 0.5 ML IMVAC ONE (12:00)
--- NOTE | 2017-11-22 12:21 | ECHO ---
HEIGHT: 5 ft 7 in WEIGHT: 165 lb 0 oz DATE OF STUDY: 11/22/[address]: Lily Shaikh MD 2-DIMENSIONAL: YES M.MODE: YES DOPPLER: YES COLOR FLOW: YES TDS: PORTABLE: DEFINITY: BUBBLE STUDY: DIAGNOSIS: ELEVATED BNP CARDIAC HISTORY: CATHERIZATION: NO SURGERY: NO PROSTHETIC VALVE: NO PACEMAKER: NO MEASUREMENTS (cm) DIASTOLIC (NORMALS) SYSTOLIC (NORMALS) IVSd 1.1 (0.6-1.2) LA Diam 3.6 (1.9-4.0) LVEF 64% LVIDd 3.6 (3.5-5.7) LVIDs 2.4 (2.0-3.5) %FS 34% LVPWd 1.2 (0.6-1.2) Ao Diam 2.6 (2.0-3.7) 2 DIMENSIONAL ASSESSMENT: RIGHT ATRIUM: NORMAL LEFT ATRIUM: NORMAL RIGHT VENTRICLE: NORMAL LEFT VENTRICLE: NORMAL TRICUSPID VALVE: NORMAL MITRAL VALVE: NORMAL PULMONIC VALVE: NORMAL AORTIC VALVE: NORMAL PERICARDIAL EFFUSION: NONE AORTIC ROOT: NORMAL LEFT VENTRICULAR WALL MOTION: NORMAL DOPPLER/COLOR FLOW: TRACE TO MILD MITRAL REGURGITATION. COMMENTS: NORMAL 2-DIMENSIONAL ECHOCARDIOGRAM. TRACE TO MILD MITRAL REGURGITATION. TECHNOLOGIST: HEBERT RAMESH
--- NOTE | 2017-11-22 12:26 | P.CNS ---
Date of Consult: 11/22/17 Primary Care Provider: Dr. Munguia(Ira Renteria NP); Cardiology-Dr. Sánchez Chief Complaint: Pneumonia History of Present Illness: Patient is 81 is of age well known to me admitted with sudden onset of right- sided pleuritic chest pain and a cough in addition to fever was diagnosed with a right-sided pneumonia admitted to the hospital currently doing much better patient is compliant with her bronchodilators at home Allergies No Known Allergies Allergy (Unverified 11/20/17 11:17) Home Medications: Losartan Potassium [Cozaar*] 50 mg PO DAILY 11/20/17 Metoprolol Tartrate [Lopressor*] 25 mg PO BEDTIME 11/20/17 Metoprolol Tartrate [Lopressor] 50 mg PO DAILY 11/20/17 Albuterol Sulfate [Proair Hfa] 8.5 gm IH TID PRN #1 hfa.aer.ad 11/22/17 Aspirin [Aspirin EC 81 MG] 81 mg PO DAILY #90 tablet. 11/22/17 Benzonatate [Tessalon Perle] 100 mg PO TID PRN #10 cap 11/22/17 Budesonide/Formoterol Fumarate [Symbicort 160-4.5 Mcg Inhaler] 2 puff IH BID #1 hfa.aer.ad 11/22/17 Levofloxacin [Levaquin] 500 mg PO DAILY #7 tablet 11/22/17 - Past Medical/Surgical History Diabetic: No -: HTN -: Tricuspid valve regurgitation -: Pneumonia -: Coronary artery clot removal -: Appe -: INGUINAL HERNIA REPAIR -: BUNION REMOVAL (R) -: Bilateral lens implant -: Bilateral cataract surgery - Social History Alcohol use: No CD- Drugs: No Caffeine use: No Place of Residence: Home Review of Systems 10-point ROS is otherwise unremarkable Physical Examination Temp Pulse Resp BP Pulse Ox 98.4 F 83 18 168/84 H 94 11/22/17 08:00 11/22/17 08:00 11/22/17 08:00 11/22/17 08:00 11/22/17 08:00 General: Alert, Oriented x3 HEENT: Atraumatic Neck: Supple Respiratory: Crackles/rales (Crackles on the right side) Cardiovascular: No edema, Regular rate/rhythm, Normal S1 S2 - Problems (1) RLL pneumonia Onset Date: 11/22/17 Status: Acute Plan: Patient is 81 years of age admitted with a right lower lobe pneumonia confirmed on a CT scan and chest x-ray chemistries unremarkable white count has not declined to normal cultures and negative oxygenation satisfactory vital signs stable agree with discharge on levofloxacin continue with bronchodilator Qualifiers: Pneumonia type: due to unspecified organism Qualified Code(s): J18.1 - Lobar pneumonia, unspecified organism
[2017-11-22 18:00] VITALS: BP 151/79; TEMP 98.9
== END 2017-11-22 12:14 | disposition home or self-care (01) ==
LOC: ER 08:52 → INTOOBSV 10:42 → ERHOLD 10:42 → 2ND 11:23
PROVIDERS: ADMIT Internal Medicine; ATTEND Family Medicine
DX: J18.9 Pneumonia, unspecified organism (principal); I10 Essential (primary) hypertension; I07.1 Rheumatic tricuspid insufficiency; J44.0 Chronic obstructive pulmonary disease with (acute) lower respiratory infection; I48.0 Paroxysmal atrial fibrillation; I48.92 Unspecified atrial flutter; R79.89 Other specified abnormal findings of blood chemistry; I73.9 Peripheral vascular disease, unspecified; Z79.82 Long term (current) use of aspirin; Z23 Encounter for immunization
CPT/HCPCS: 36415 ×2; 71045; 71046; 71275; 80048; 80053 ×2; 80076; 81003; 82550; 82553; 83605; 83690; 83735; 83880; 84436; 84439; 84443; 84484; 85025 ×3; 85610; 85730; 87040 ×2; 90670; 93005 ×2; 93306; 94640; 94760 ×5; 96365; 96367; 99285; G0009; G0378 ×2; J0456 ×3; J0696 ×6; J1650 ×2; J7030 ×3; Q9967; 96361

== ENCOUNTER 2021-09-08 12:18 | Inpatient (IN) | payer OTHER, BC ==
[2021-09-08] MEDS ORDERED: METOPROLOL TARTRATE 5 MG/5 ML INJ IV ONE (13:34)
[2021-09-08 13:36] LABS: Absolute Lymphocytes (CBC) 0.7 K/uL (0.7-4.9); Hematocrit 47.8 % (36.0-45.0); Lymphocytes % 8.5 % (15.3-44.8); MPV 7.1 fL (7.6-11.3); Protime INR 1.09; RBC Red Blood Cell Count 4.95 M/uL (3.86-4.86)
[2021-09-08 13:50] LABS: Albumin 3.9 g/dL (3.4-5.0); Bilirubin Direct 0.2 mg/dL (0-0.2); Bilirubin Total 0.6 mg/dL (0.2-1.0); Magnesium 2.6 mg/dL (1.8-2.4); Potassium 4.7 mmol/L (3.5-5.1); Protein, Total 7.7 g/dL (6.4-8.2); Troponin High Sensitivity 14.9 pg/mL (<58.9)
[2021-09-08] MEDS ORDERED: METOPROLOL TAR 50 MG TAB ONE (14:39)
--- NOTE | 2021-09-08 15:07 | RAD REPORT ---
EXAM DESCRIPTION: RAD - Chest Single View - 09/08/2021 2:45 pm CLINICAL HISTORY: weakness COMPARISON: Two view chest February 2018 TECHNIQUE: AP portable chest image was obtained 09/08/2021 2:45 pm . FINDINGS: No focal lung parenchymal process. Interstitial pattern is not significantly different fro m comparison. Severity could potentially mask minimal interstitial edema or infiltrate. Hilar regions are similar to comparison. Heart and vasculature are normal. No measurable pleural effusion and no p neumothorax. No acute bony abnormality seen. No acute aortic findings suspected. IMPRESSION: No acute cardiopulmonary process. Prominent baseline interstitial pattern is present potentially masking early edema or infiltrate.
--- NOTE | 2021-09-08 15:39 | RAD REPORT ---
EXAM DESCRIPTION: CT - Head Brain Wo Cont - 09/08/2021 3:18 pm CLINICAL HISTORY: general weakness COMPARISON: <Comparisons> TECHNIQUE: Axial 5 mm thick images of the head were obtained without IV contrast. All CT scans are performed using dose optimization technique as appropriate and may include automated exposure control or mA/KV adjustment according to patient size. FINDINGS: No intracranial hemorrhage, mass, edema or shift of mid-line structures. In the right fron daiana lobe along the anterior superior margin of the sylvian fissure there is a 3 centimeter area of de creased attenuation. This extends from the cortex to the right frontal horn lateral ventricle periven tricular white matter. There is loss of cerna matter - white matter differentiation with sulcal efface ment. This has the appearance of nonhemorrhagic acute/ subacute CVA. No other acute infarction changes seen. Patient has underlying mild to moderate atrophy and moderate chronic ischemic change. Ventricles are in proportion to the volume loss. No abnormal extra-axial flu id collections. Dense arterial tree calcifications are present. Mastoid air cells and visualized portions of the paranasal sinuses are clear. No acute bony findings. IMPRESSION: Acute/subacute nonhemorrhagic infarction right frontal lobe as detailed. Mild to moderate atrophy with moderate severity chronic ischemic change.
--- NOTE | 2021-09-08 15:52 | RAD REPORT ---
EXAM DESCRIPTION: CT - Abdomen Pelvis W Contrast - 09/08/2021 3:18 pm CLINICAL HISTORY: lower back pain COMPARISON: No comparisons TECHNIQUE: Biphasic, helical CT imaging of the abdomen and pelvis was performed following 100 ml non -ionic IV contrast. No oral contrast was given. All CT scans are performed using dose optimization technique as appropriate and may include automated exposure control or mA/KV adjustment according to patient size. FINDINGS: No suspicious findings in the lung bases. The liver, spleen, and pancreas show no suspicious findings. Gallbladder is absent. Dilatation of the biliary tree is not outside of normal range. Duct stones can be occult. Symmetric renal function is seen with no hydronephrosis or suspicious renal mass. No pyelonephritis o r acute parenchymal process. No bladder abnormalities. No adrenal abnormalities. Uterus absent. Ovari es are absent or atrophic. No adnexal abnormality seen. No dilated bowel loops or bowel wall thickening. Appendix is not clearly defined and is potentially s urgically absent at the time of hysterectomy. No direct or indirect evidence for appendicitis. Patien t has diverticulosis and moderate rectosigmoid stool volume. No diverticulitis. No free air, free fluid or inflammatory stranding. No hernia, mass or bulky lymphadenopathy. Right inguinal hernia repair changes are present. Advanced lumbar spine degenerative changes are present with no acute or pathologic change. Central ca nal detail is inherently limited. Patient has advanced bilateral hip joint degenerative change withou t acute finding. IMPRESSION: Contrast enhanced CT abdomen and pelvis showing no acute or emergent finding. Gallbladder is absent. The dilation of the biliary tree is not outside of normal range for a post cho lecystectomy patient. Duct stones can be occult on CT imaging. Nonacute findings detailed in the body of the report.
[2021-09-08 16:11] LABS: Urine Blood Negative (Negative); Urine Glucose Negative (Negative); Urine Protein 2+ (Negative); Urine Specific Gravity 1.025 (1.005-1.030); Urine pH 6.5 (5.0-7.0)
[2021-09-08] MEDS ORDERED: FOLIC ACID 5 MG/ML VIAL ONE (16:15)
[2021-09-08] MEDS ORDERED: ASPIRIN 81 MG CHEWABLE TABLET ONE (16:15)
[2021-09-08 16:39] LABS: Urine Bacteria <20 /HPF (<20); Urine RBC NONE SEEN /HPF (NONE SEEN)
--- NOTE | 2021-09-08 16:40 | ER ---
Nurse's Notes [facility] Name: Batsheva Al Age: 85 yrs Sex: Female : 1935 Arrival Date: 09/08/2021 Time: 12:19 Bed 4 Private MD: Diagnosis: Unspecified atrial fibrillation;Cerebral infarction, unspecified Presentation: 09/08 12:51 Chief complaint: Patient's son or daughter states: Brought her to [facility] and jd3 discharged this morning due to increase weakness and shaking when she moves. Daughter states she is having lower back pain with loss of bladder and that she is just off with slurred speech. Patient states that her back pain started on Wednesday and she is just weak. At [facility] they gave her diazepam and morphine. Coronavirus screen: Vaccine status: Patient reports receiving the 1st dose of the Covid vaccine. Client denies travel out of the [place] in the last 14 days. Ebola Screen: Patient denies travel to an Ebola-affected area in the 21 days before illness onset. Initial Sepsis Screen: Does the patient meet any 2 criteria? HR > 90 bpm. Does the patient have a suspected source of infection? No. Patient's initial sepsis screen is negative. Risk Assessment: Do you want to hurt yourself or someone else? Patient reports no desire to harm self or others. Onset of symptoms is unknown. 12:51 Method Of Arrival: Wheelchair jd3 12:51 Acuity: MORTEZA 3 jd3 12:55 An acute neurological deficit is present. Pre-hospital glucose is not applicable to aa5 this patient. Triage Assessment: 12:54 General: Appears comfortable, Behavior is cooperative. Pain: Complains of pain in jd3 lumbar area, left low back and right low back. Neuro: Level of Consciousness is awake, alert, obeys commands, Oriented to person, place, time, situation. Cardiovascular: Patient's skin is warm and dry. Chest pain is denied. Respiratory: Airway is patent Respiratory effort is even, unlabored, Respiratory pattern is regular, symmetrical. 12:55 The onset of the patients symptoms was at an unknown time. aa5 Stroke Activation: Symptom onset > 6 hours Physician: Stroke Attending; Name: ; Notified At: ; Arrived At: Physician: Chief Stroke Resident; Name: ; Notified At: ; Arrived At: Physician: Stroke Resident; Name: ; Notified At: ; Arrived At: Physician: ED Attending; Name: ; Notified At: ; Arrived At: Physician: ED Resident; Name: ; Notified At: ; Arrived At: Historical: - Allergies: 12:54 No Known Allergies; jd3 - PMHx: 12:54 Hypertension; Pneumonia; copd; jd3 - PSHx: 12:54 Total abdominal hysterectomy; right rotator cuff; jd3 - Immunization history:: Adult Immunizations up to date. - Social history:: Smoking status: Patient denies any tobacco usage or history of. Screenin:00 Abuse screen: Denies threats or abuse. Nutritional screening: No deficits noted. aa5 Tuberculosis screening: No symptoms or risk factors identified. Fall Risk Fall in past 12 months (25 points). No secondary diagnosis (0 pts). IV access (20 points). Ambulatory Aid- None/Bed Rest/Nurse Assist (0 pts). Gait- Weak (10 pts.). Mental Status- Overestimates/Forgets Limitations (15 pts.). Total Pathak Fall Scale indicates High Risk Score (45 or more points). Fall prevention measures have been instituted. Side Rails Up X 2 Placed Close to Nursing Station. Assessment: 12:55 General: Appears comfortable, Behavior is calm, cooperative. Pain: Complains of pain in aa5 back Unable to use pain scale. Does not appear to understand pain scale. Neuro: Level of Consciousness is awake, alert, obeys commands, Oriented to person, place, time, situation, Roof Bolter Helper are weak bilaterally Moves all extremities. Weakness in left leg(s) Gait is unable to assess . Speech is normal, Facial symmetry appears normal. Cardiovascular: Heart tones S1 S2 present Rhythm is atrial fibrillation with rapid ventricular response. Respiratory: Airway is patent Respiratory effort is even, unlabored, Respiratory pattern is regular, symmetrical, Breath sounds are clear bilaterally. GI: Abdomen is round non-distended, Bowel sounds present X 4 quads. Abd is soft and non tender X 4 quads. : Parent/caregiver report the patient having incontinence this morning. EENT: No signs and/or symptoms were reported regarding the EENT system. Derm: Skin is pink, warm \\T\\ dry. Musculoskeletal: Range of motion: intact in all extremities. 12:55 VAN Scoring: Arm Drift: Patients demonstrates NO arm weakness. Patient is VAN Negative. aa5 Visual Disturbance: No visual disturbance noted. Aphasia: No aphasia noted. Neglect: No neglect noted. 12:55 T-PA (Activase) Screening: Contraindications: Patient reports onset of signs and aa5 symptoms of stroke greater than 6 hours ago: Yes. 13:30 Patient has been NPO before screening. The patient is alert, and able to follow aa5 commands. The patient does not exhibit slurred or garbled speech. The patient is not exhibiting difficulty speaking. The patient does not exhibit difficulty understanding words. The patient is able to swallow own secretions with no drooling or need for suction. Patient tolerated one teaspoon of water. No drooling, immediate coughing, gurgling, or clearing of the throat was noted. The patient tolerated 90mL of water. No drooling, immediate coughing, gurgling, or clearing of the throat was noted. The patient passed the bedside swallow screening. Oral medications may be given as ordered. Contact Physician for further diet orders. Provider notified of bedside swallow screening results: Niels CHIU. 13:44 Reassessment: Patient is alert, oriented x 3, equal unlabored respirations, skin aa5 warm/dry/pink. 14:35 Reassessment: Patient is alert, oriented x 3, equal unlabored respirations, skin aa5 warm/dry/pink. 14:35 Cardiovascular: Rhythm is atrial fibrillation with rapid ventricular response. aa5 15:01 Reassessment: Pt to CT via stretcher . aa5 16:20 Reassessment: Pt resting in bed with eyes closed, respirations even and unlabored, skin aa5 is pink/warm/dry. Pt easy to awaken to verbal stimuli. . 17:30 Reassessment: Patient is alert, oriented x 3, equal unlabored respirations, skin aa5 warm/dry/pink. Pt's daughter at bedside. . 17:30 Cardiovascular: Rhythm is atrial fibrillation. aa5 18:15 Reassessment: Pt resting in bed with eyes closed, respirations even and unlabored, skin aa5 is pink/warm/dry. . Cardiovascular: Rhythm is atrial fibrillation. 20:20 Reassessment: Patient and/or family updated on plan of care and expected duration. Pain as6 level reassessed. Patient is alert, oriented x 3, equal unlabored respirations, skin warm/dry/pink. Vital Signs: 12:51 BP 137 / 104; Pulse 130; Resp 20; Temp 97.9; Pulse Ox 95% ; Weight 79.38 kg; Height 5 jd3 ft. 7 in. (170.18 cm); 13:15 BP 135 / 95; Pulse 131; Resp 22; Pulse Ox 95% ; jl7 13:38 BP 126 / 97; Pulse 119; Resp 18 S; Pulse Ox 90% on R/A; aa5 13:43 BP 141 / 108; Pulse 118; Resp 14 S; Pulse Ox 96% on 2 lpm NC; aa5 14:30 BP 147 / 96; Pulse 104; Resp 16 S; Pulse Ox 97% on 2 lpm NC; aa5 15:30 BP 134 / 94; Pulse 105; Resp 14 S; Temp 97.5(TE); Pulse Ox 96% on 2 lpm NC; aa5 16:30 BP 137 / 98; Pulse 105; Resp 14 S; Pulse Ox 98% on 2 lpm NC; aa5 17:30 BP 158 / 101; Pulse 99; Resp 16 S; Pulse Ox 98% on 2 lpm NC; aa5 18:00 BP 155 / 97; Pulse 84; Resp 18 S; Temp 97.9(TE); Pulse Ox 98% on 2 lpm NC; aa5 20:20 BP 148 / 103; Pulse 101; Resp 26 S; Pulse Ox 98% on 2 lpm NC; as6 12:51 Body Mass Index 27.41 (79.38 kg, 170.18 cm) jd3 NIH Stroke Scale Scores: 12:55 NIHSS Score: 2 aa5 13:15 NIHSS Score: 3 cp 13:44 NIHSS Score: 2 aa5 17:30 NIHSS Score: 2 aa5 ED Course: 12:19 Patient arrived in ED. am2 12:53 Niels Joshi PA is PHCP. cp 12:54 Joaquín Velasquez DO is Attending Physician. cp 12:54 Triage completed. jd3 12:54 Arm band placed on. jd3 12:55 EKG done. jd3 12:59 Missed attempt(s): 20 gauge in right forearm. Bleeding controlled, band aid applied, aa5 catheter tip intact. 13:00 Initial lab(s) drawn, by de, sent to lab. Inserted saline lock: 20 gauge in right aa5 antecubital area, using aseptic technique. Blood collected. 13:38 Sagrario Silva, RN is Primary Nurse. aa5 14:40 COVID-19 SARS RT PCR (Document "Date of Onset" if Symptomatic) Sent. em1 14:41 Influenza Screen (a \\T\\ B) Sent. em1 14:47 XRAY Chest (1 view) In Process Unspecified. EDMS 15:20 CT Abd/Pelvis - IV Contrast Only In Process Unspecified. EDMS 15:20 CT Head Brain wo Cont In Process Unspecified. EDMS 15:55 Sanchez cath inserted, using sterile technique, 18 Fr., by ED staff, urine specimen aa5 collected. VO for sanchez placement obtained prior to insertion. 16:11 Patient has correct armband on for positive identification. Bed in low position. Call mb7 light in reach. Side rails up X2. Adult w/ patient. Warm blanket given. quality assurance monitor final on. Pulse ox on. NIBP on. 16:13 Urine Microscopic Only Sent. mb7 16:38 Ema Monahan MD is Hospitalizing Provider. cp 18:06 No provider procedures requiring assistance completed. aa5 18:35 Inserted saline lock: 20 gauge in right wrist, using aseptic technique. aa5 19:00 Report given to FRANK Garza and FRANK Romero. aa5 19:11 Primary Nurse role handed off by Sagrario Silva RN mw2 19:23 Nick Christine RN is Primary Nurse. as6 21:34 Patient admitted, IV remains in place. as6 Administered Medications: 13:30 Drug: Metoprolol 5 mg Route: IVP; Site: right antecubital; jl7 13:38 Drug: Metoprolol 5 mg Route: IVP; Site: right antecubital; aa5 13:44 Drug: Metoprolol 5 mg Route: IVP; Site: right antecubital; aa5 13:50 Follow up: Response: No adverse reaction aa5 14:35 Drug: Metoprolol 50 mg Route: PO; aa5 15:30 Follow up: Response: No adverse reaction aa5 16:20 Drug: foLIC Acid 1 mg Route: IVPB; Site: right antecubital; aa5 20:21 Follow up: Response: No adverse reaction; IV Status: Completed infusion; IV Intake: [id number] 16:20 Drug: Aspirin Chewable Tablet 81 mg Route: PO; aa5 17:30 Follow up: Response: No adverse reaction aa5 17:30 Drug: Heparin (OK Drip) 12 units/kg/hr - (HEParin 76521 units, D5W 500 ml) aa5 {Co-Signature: jl7 (Arielle Elizondo RN).} Route: IV; Rate: calculated rate; Site: right antecubital; 21:34 Follow up: IV Status: Infusion continued upon admission as6 18:36 Drug: amiodarone 900 mg, D5W 500 ml Route: IVPB; Rate: 0.5 mg/min; Site: right wrist; aa5 21:34 Follow up: IV Status: Infusion continued upon admission as6 Medication: 21:33 VIS not applicable for this client. as6 Intake: 20:21 IV: 50ml; Total: 50ml. as6 Outcome: 16:39 Decision to Hospitalize by Provider. cp 21:33 Admitted to ICU accompanied by nurse, via stretcher, room 3, with oxygen, on monitor, as6 with chart, Report called to Mayte MARIE 21:33 Condition: stable 21:33 Instructed on the need for admit. 21:35 Patient left the ED. as6 NIH Stroke Scale - NIH Stroke Score Date: 09/08/2021 Time: 12:55 Total Score = 2 1a. Level of Consciousness (LOC) - 0(Alert) 1b. Level of Consciousness (LOC) (Month \\T\\ Age) - 0(Both) 1c. LOC Commands (Open \\T\\ Closes Eyes/Pipe Stem Repairer) - 0(Both) 2. Best Gaze (Lateral Gaze Paresis) - 0(Normal) 3. Visual Field Loss - 0(No visual loss) 4. Facial Palsy - 0(Normal) 5a. Left Arm: Motor (10-second hold) - 0(No drift) 5b. Right Arm: Motor (10-second hold) - 0(No drift) 6a. Left Leg: Motor (5-second hold - always test supine) - 2(Drift, some effort against gravity) 6b. Right Leg: Motor (5-second hold - always test supine) - 0(No drift) 7. Limb Ataxia (finger/nose \\T\\ heel/lugo - test with eyes open) - 0(Absent) 8. Sensory Loss (pinprick arms/legs/face) - 0(Normal) 9. Best Language: Aphasia (description/naming/reading) - 0(No aphasia) 10. Dysarthria (speech clarity - read or repeat words) - 0(Normal) 11. Extinction and Inattention (visual/tactile/auditory/spatial/personal) - 0(No abnormality) Initials: aa5 NIH Stroke Scale - NIH Stroke Score Date: 09/08/2021 Time: 13:15 Total Score = 3 1a. Level of Consciousness (LOC) - 0(Alert) 1b. Level of Consciousness (LOC) (Month \\T\\ Age) - 0(Both) 1c. LOC Commands (Open \\T\\ Closes Eyes/Pipe Stem Repairer) - 0(Both) 2. Best Gaze (Lateral Gaze Paresis) - 0(Normal) 3. Visual Field Loss - 0(No visual loss) 4. Facial Palsy - 1(Minor Paralysis) 5a. Left Arm: Motor (10-second hold) - 1(Drift) 5b. Right Arm: Motor (10-second hold) - 0(No drift) 6a. Left Leg: Motor (5-second hold - always test supine) - 0(No drift) 6b. Right Leg: Motor (5-second hold - always test supine) - 0(No drift) 7. Limb Ataxia (finger/nose \\T\\ heel/lugo - test with eyes open) - 1(Present in one limb) 8. Sensory Loss (pinprick arms/legs/face) - 0(Normal) 9. Best Language: Aphasia (description/naming/reading) - 0(No aphasia) 10. Dysarthria (speech clarity - read or repeat words) - 0(Normal) 11. Extinction and Inattention (visual/tactile/auditory/spatial/personal) - 0(No abnormality) Initials: cp NIH Stroke Scale - NIH Stroke Score Date: 09/08/2021 Time: 13:44 Total Score = 2 1a. Level of Consciousness (LOC) - 0(Alert) 1b. Level of Consciousness (LOC) (Month \\T\\ Age) - 0(Both) 1c. LOC Commands (Open \\T\\ Closes Eyes/Pipe Stem Repairer) - 0(Both) 2. Best Gaze (Lateral Gaze Paresis) - 0(Normal) 3. Visual Field Loss - 0(No visual loss) 4. Facial Palsy - 0(Normal) 5a. Left Arm: Motor (10-second hold) - 0(No drift) 5b. Right Arm: Motor (10-second hold) - 0(No drift) 6a. Left Leg: Motor (5-second hold - always test supine) - 2(Drift, some effort against gravity) 6b. Right Leg: Motor (5-second hold - always test supine) - 0(No drift) 7. Limb Ataxia (finger/nose \\T\\ heel/lugo - test with eyes open) - 0(Absent) 8. Sensory Loss (pinprick arms/legs/face) - 0(Normal) 9. Best Language: Aphasia (description/naming/reading) - 0(No aphasia) 10. Dysarthria (speech clarity - read or repeat words) - 0(Normal) 11. Extinction and Inattention (visual/tactile/auditory/spatial/personal) - 0(No abnormality) Initials: aa5 NIH Stroke Scale - NIH Stroke Score Date: 09/08/2021 Time: 17:30 Total Score = 2 1a. Level of Consciousness (LOC) - 0(Alert) 1b. Level of Consciousness (LOC) (Month \\T\\ Age) - 0(Both) 1c. LOC Commands (Open \\T\\ Closes Eyes/Pipe Stem Repairer) - 0(Both) 2. Best Gaze (Lateral Gaze Paresis) - 0(Normal) 3. Visual Field Loss - 0(No visual loss) 4. Facial Palsy - 0(Normal) 5a. Left Arm: Motor (10-second hold) - 0(No drift) 5b. Right Arm: Motor (10-second hold) - 0(No drift) 6a. Left Leg: Motor (5-second hold - always test supine) - 2(Drift, some effort against gravity) 6b. Right Leg: Motor (5-second hold - always test supine) - 0(No drift) 7. Limb Ataxia (finger/nose \\T\\ heel/lugo - test with eyes open) - 0(Absent) 8. Sensory Loss (pinprick arms/legs/face) - 0(Normal) 9. Best Language: Aphasia (description/naming/reading) - 0(No aphasia) 10. Dysarthria (speech clarity - read or repeat words) - 0(Normal) 11. Extinction and Inattention (visual/tactile/auditory/spatial/personal) - 0(No abnormality) Initials: aa5 Signatures: Dispatcher [employer] Shahid Alvarado em1 Sagrario Silva, RN RN aa5 Niels Joshi PA PA cp Leal, Jahala, RN RN jl7 Adriana Hale am2 Nba Santos, RN RN jd3 Kristian Chen mw2 Nick Christine, RN RN as6 Omayra Lopez mb7 Arielle Elizondo RN jl7 Corrections: (The following items were deleted from the chart) 18:00 13:10 An acute neurological deficit is present. Pre-hospital glucose is not aa5 applicable to this patient. aa5 18:00 13:10 Stroke Activation: Symptom onset > 6 hours aa5 aa5 18:07 12:55 Neuro: Level of Consciousness is awake, alert, obeys commands, Oriented aa5 to person, place, situation, Roof Bolter Helper are weak bilaterally Moves all extremities. Weakness in left leg(s) Gait is unable to assess . Speech is normal, Facial symmetry appears normal, aa5 18:07 13:30 VAN Scoring: Arm Drift: Patients demonstrates NO arm weakness. Patient is aa5 VAN Negative. Visual Disturbance: No visual disturbance noted. Aphasia: No aphasia noted. Neglect: No neglect noted. aa5 18:40 16:12 Sanchez cath inserted, using sterile technique, 18 Fr., by ED staff, urine aa5 specimen collected. mb7
--- NOTE | 2021-09-08 16:40 | EDPHYS ---
Physician Documentation [facility] Name: Batsheva Al Age: 85 yrs Sex: Female : 1935 Arrival Date: 09/08/2021 Time: 12:19 Bed 4 Private MD: ED Physician Joaquín Velasquez HPI: 09/08 13:05 This 85 yrs old Female presents to ER via Wheelchair with complaints of Back Pain, cp Can't walk. 13:05 The patient's problem is reported as weakness, that is generalized, slurred speech. cp 13:05 Associated signs and symptoms: Pertinent positives: back pain, difficulty standing and cp walking, Pertinent negatives: abdominal pain, chest pain, combativeness, confusion. Daughter reports patient awoke about 0600 this morning with weakness all over, had episode of urinary incontinence. Daughter reports patient's speech was slurred. She took her too [facility] this morning and patient was discharged. Unsure what tests were done. Patient has been complaining of back pain since Wednesday and having difficulty walking. Historical: - Allergies: 12:54 No Known Allergies; jd3 - PMHx: 12:54 Hypertension; Pneumonia; copd; jd3 - PSHx: 12:54 Total abdominal hysterectomy; right rotator cuff; jd3 - Immunization history:: Adult Immunizations up to date. - Social history:: Smoking status: Patient denies any tobacco usage or history of. ROS: 13:10 Constitutional: Negative for body aches, chills, fever, poor PO intake. cp 13:10 Eyes: Negative for injury, pain, redness, and discharge. cp 13:10 Neck: Negative for pain with movement, pain at rest, stiffness. 13:10 Cardiovascular: Negative for chest pain, edema. 13:10 Respiratory: Negative for cough, shortness of breath, wheezing. 13:10 Abdomen/GI: Negative for abdominal pain, nausea, vomiting, and diarrhea. 13:10 Back: Positive for pain at rest, pain with movement. 13:10 : Positive for bladder incontinence 13:10 Skin: Negative for cellulitis, rash. 13:10 Neuro: Positive for weakness, Negative for altered mental status, dizziness, headache, syncope. 13:10 All other systems are negative. Exam: 12:57 ECG was reviewed by the Attending Physician. cp 13:00 ECG was reviewed by the Attending Physician. cp 13:15 Constitutional: The patient appears in no acute distress, alert, awake, cp non-diaphoretic, non-toxic, well developed, well nourished. 13:15 Head/Face: Normocephalic, atraumatic. cp 13:15 Eyes: Periorbital structures: appear normal, Conjunctiva: normal, no exudate, no injection, Sclera: no appreciated abnormality, Lids and lashes: appear normal, bilaterally. 13:15 ENT: External ear(s): are unremarkable, Nose: is normal, Mouth: Lips: moist, Oral mucosa: moist, Posterior pharynx: is normal, airway is patent. 13:15 Neck: ROM/movement: is normal, is supple, without pain, no range of motions limitations, no meningismus. 13:15 Chest/axilla: Inspection: normal, Palpation: is normal, no crepitus, no tenderness. 13:15 Cardiovascular: Rate: tachycardic, Rhythm: irregular, Edema: is not appreciated, JVD: is not appreciated. 13:15 Respiratory: the patient does not display signs of respiratory distress, Respirations: normal, no use of accessory muscles, no retractions, labored breathing, is not present, Breath sounds: are clear throughout, no decreased breath sounds, no stridor, no wheezing. 13:15 Abdomen/GI: Inspection: abdomen appears normal, Bowel sounds: active, all quadrants, Palpation: abdomen is soft and non-tender, in all quadrants. 13:15 Back: pain, that is moderate, of the low back area, ROM is painful, with all movement, CVA tenderness, is absent. 13:15 Skin: cellulitis, is not appreciated, no rash present. 13:15 Neuro: Orientation: to person, place \\T\\ time. Mentation: able to follow commands, slow to respond, Cerebellar function: Romberg testing is abnormal, left side, dysmetria is noted on the left, Motor: moves all fours, general weakness, Sensation: no obvious gross deficits. 15:55 Radiologist reports: right frontal acute/subacute non hemorrhagic infarct cp Vital Signs: 12:51 BP 137 / 104; Pulse 130; Resp 20; Temp 97.9; Pulse Ox 95% ; Weight 79.38 kg; Height 5 jd3 ft. 7 in. (170.18 cm); 13:15 BP 135 / 95; Pulse 131; Resp 22; Pulse Ox 95% ; jl7 13:38 BP 126 / 97; Pulse 119; Resp 18 S; Pulse Ox 90% on R/A; aa5 13:43 BP 141 / 108; Pulse 118; Resp 14 S; Pulse Ox 96% on 2 lpm NC; aa5 14:30 BP 147 / 96; Pulse 104; Resp 16 S; Pulse Ox 97% on 2 lpm NC; aa5 15:30 BP 134 / 94; Pulse 105; Resp 14 S; Temp 97.5(TE); Pulse Ox 96% on 2 lpm NC; aa5 16:30 BP 137 / 98; Pulse 105; Resp 14 S; Pulse Ox 98% on 2 lpm NC; aa5 17:30 BP 158 / 101; Pulse 99; Resp 16 S; Pulse Ox 98% on 2 lpm NC; aa5 18:00 BP 155 / 97; Pulse 84; Resp 18 S; Temp 97.9(TE); Pulse Ox 98% on 2 lpm NC; aa5 20:20 BP 148 / 103; Pulse 101; Resp 26 S; Pulse Ox 98% on 2 lpm NC; as6 12:51 Body Mass Index 27.41 (79.38 kg, 170.18 cm) jd3 NIH Stroke Scale Scores: 12:55 NIHSS Score: 2 aa5 13:15 NIHSS Score: 3 cp 13:44 NIHSS Score: 2 aa5 17:30 NIHSS Score: 2 aa5 MDM: 13:13 Patient medically screened. cp 16:20 Data reviewed: vital signs, nurses notes, lab test result(s), EKG, radiologic studies, cp CT scan, plain films. 16:20 Physician consultation: Odin Morgan MD was called at 16:20, was contacted at 16:20, cp regarding consult, patient's condition, would like further tests performed, CT angio head and neck. 16:29 ED course: spoke with radiology, unable to order CT head/neck angio due to patient cp receiving IV contrast for CT abdomen/pelvis. 16:55 Physician consultation: Ema Monahan MD was called at 16:55, was contacted at 16:55, cp regarding admission, to the telemetry unit. patient's condition, would like medications started, Heparin drip. 09/08 13:02 Order name: Basic Metabolic Panel; Complete Time: 14:30 09/08 14:30 Interpretation: Normal except: CL 108; GLUC 145; GFR 63. 09/08 13:02 Order name: CBC with Diff; Complete Time: 13:52 09/08 13:52 Interpretation: Normal except: RBC 4.95; HGB 15.8; HCT 47.8; MCH 31.8; MPV 7.1; HADLEY% cp 89.9; LYM% 8.5; MN% 1.3. 09/08 13:02 Order name: LFT's; Complete Time: 14:30 cp 09/08 14:31 Interpretation: Normal except: AST 43; GLOB 3.8; A/G 1.0. 09/08 13:02 Order name: Magnesium; Complete Time: 14:30 09/08 14:30 Interpretation: Reviewed. 09/08 13:02 Order name: NT PRO-BNP; Complete Time: 14:30 09/08 14:30 Interpretation: Abnormal: NT PRO-BNP 3344. 09/08 13:02 Order name: PT-INR; Complete Time: 13:52 09/08 13:02 Order name: Troponin HS; Complete Time: 14:30 09/08 13:02 Order name: Urine Microscopic Only; Complete Time: 17:02 09/08 13:15 Order name: Influenza Screen (a \\T\\ B); Complete Time: 15:36 09/08 13:15 Order name: COVID-19 SARS RT PCR (Document "Date of Onset" if Symptomatic); Complete cp Time: 15:54 09/08 15:55 Interpretation: Reviewed. 09/08 16:11 Order name: Urine Dipstick-Ancillary; Complete Time: 16:17 EDIN 09/08 16:13 Order name: Urine Dipstick-Ancillary [facility] 09/08 16:59 Order name: Magnesium; Complete Time: 19:52 EDIN 09/08 16:59 Order name: Protime (+INR); Complete Time: 19:52 EDIN 09/08 16:59 Order name: PTT, Activated Partial Thromb; Complete Time: 19:52 EDMS 09/08 16:59 Order name: PTT, Activated Partial Thromb; Complete Time: 19:52 EDIN 09/08 16:59 Order name: Protime (+INR) [facility]MS 09/08 16:59 Order name: Thyroid Stimulating Hormone; Complete Time: 19:52 [facility] 09/08 16:59 Order name: C-Reactive Protein [facility] 09/08 16:59 Order name: C-Reactive Protein; Complete Time: 19:52 [facility] 09/08 16:59 Order name: Comprehensive Metabolic Panel [facility] 09/08 16:59 Order name: Comprehensive Metabolic Panel; Complete Time: 19:52 [facility] 09/08 16:59 Order name: Lipid Profile [facility] 09/08 16:59 Order name: Lipid Profile; Complete Time: 19:52 [facility] 09/08 16:59 Order name: PTT, Activated Partial Thromb [facility] 09/08 16:59 Order name: PTT, Activated Partial Thromb; Complete Time: 19:52 [facility] 09/08 16:59 Order name: PTT, Activated Partial Thromb [facility] 09/08 13:02 Order name: EKG; Complete Time: 13:03 09/08 13:02 Order name: EKG - Nurse/Tech; Complete Time: 13:35 09/08 13:02 Order name: XRAY Chest (1 view); Complete Time: 15:36 09/08 15:36 Interpretation: Report review. 09/08 13:02 Order name: Cardiac monitoring; Complete Time: 13:35 09/08 13:02 Order name: IV Saline Lock; Complete Time: 13:35 09/08 13:02 Order name: Labs collected and sent; Complete Time: 13:35 09/08 13:02 Order name: O2 Per Protocol; Complete Time: 13:35 09/08 13:02 Order name: O2 Sat Monitoring; Complete Time: 13:35 09/08 13:02 Order name: Urine Dipstick-Ancillary (obtain specimen); Complete Time: 16:13 09/08 13:15 Order name: Cath; Complete Time: 16:12 09/08 14:44 Order name: CT Abd/Pelvis - IV Contrast Only; Complete Time: 15:54 09/08 15:04 Order name: CT Head Brain wo Cont; Complete Time: 15:54 09/08 15:55 Interpretation: Report reviewed. 09/08 16:59 Order name: CONS Physician Consult [facility] 09/08 16:59 Order name: Occupational Therapy Consult [facility] 09/08 16:59 Order name: Physical Therapy Consult [facility] 09/08 16:59 Order name: Social Service Consult [facility] 09/08 16:59 Order name: NPO [facility] 09/08 16:59 Order name: NPO [facility] 09/08 16:59 Order name: NPO [facility] 09/08 16:59 Order name: NPO [facility] 09/08 16:59 Order name: Echo with Doppler [facility]IN 09/08 16:59 Order name: PTT, Activated Partial Thromb; Complete Time: 19:52 EDMS 09/08 16:59 Order name: Carotid Artery Bilateral; Complete Time: 19:52 EDMS EC:57 Rate is 117 beats/min. Rhythm is irregular. QRS interval is prolonged at 118 msec. QT cp interval is normal. Interpreted by me. Reviewed by me. 13:00 Rate is 131 beats/min. Rhythm is irregular. QRS interval is prolonged at 144 msec. QT cp interval is normal. Interpreted by me. Reviewed by me. Administered Medications: 13:30 Drug: Metoprolol 5 mg Route: IVP; Site: right antecubital; jl7 13:38 Drug: Metoprolol 5 mg Route: IVP; Site: right antecubital; aa5 13:44 Drug: Metoprolol 5 mg Route: IVP; Site: right antecubital; aa5 13:50 Follow up: Response: No adverse reaction aa5 14:35 Drug: Metoprolol 50 mg Route: PO; aa5 15:30 Follow up: Response: No adverse reaction aa5 16:20 Drug: foLIC Acid 1 mg Route: IVPB; Site: right antecubital; aa5 20:21 Follow up: Response: No adverse reaction; IV Status: Completed infusion; IV Intake: 60tiin4 16:20 Drug: Aspirin Chewable Tablet 81 mg Route: PO; aa5 17:30 Follow up: Response: No adverse reaction aa5 17:30 Drug: Heparin (PR Drip) 12 units/kg/hr - (HEParin 28706 units, D5W 500 ml) aa5 {Co-Signature: jl7 (Arielle Elizondo RN).} Route: IV; Rate: calculated rate; Site: right antecubital; 21:34 Follow up: IV Status: Infusion continued upon admission as6 18:36 Drug: amiodarone 900 mg, D5W 500 ml Route: IVPB; Rate: 0.5 mg/min; Site: right wrist; aa5 21:34 Follow up: IV Status: Infusion continued upon admission as6 Disposition: 19:04 Co-signature as Attending Physician, Joaquín Singhmoses SANDERSON was immediately available on-site ms3 in the Emergency Department for consultation in the care of the patient.. Disposition Summary: 09/08/21 16:39 Hospitalization Ordered Hospitalization Status: Inpatient Admission cp Provider: Ema Monahan cp Condition: Stable cp Problem: new cp Symptoms: have improved cp Bed/Room Type: Standard cp Location: Intensive Care Unit(09/08/21 20:14) mw Room Assignment: 3-(09/08/21 20:14) mw Diagnosis - Unspecified atrial fibrillation cp - Cerebral infarction, unspecified cp Forms: - Medication Reconciliation Form cp - SBAR form cp NIH Stroke Scale - NIH Stroke Score Date: 09/08/2021 Time: 12:55 Total Score = 2 1a. Level of Consciousness (LOC) - 0(Alert) 1b. Level of Consciousness (LOC) (Month \\T\\ Age) - 0(Both) 1c. LOC Commands (Open \\T\\ Closes Eyes/Vice President Of Compliance) - 0(Both) 2. Best Gaze (Lateral Gaze Paresis) - 0(Normal) 3. Visual Field Loss - 0(No visual loss) 4. Facial Palsy - 0(Normal) 5a. Left Arm: Motor (10-second hold) - 0(No drift) 5b. Right Arm: Motor (10-second hold) - 0(No drift) 6a. Left Leg: Motor (5-second hold - always test supine) - 2(Drift, some effort against gravity) 6b. Right Leg: Motor (5-second hold - always test supine) - 0(No drift) 7. Limb Ataxia (finger/nose \\T\\ heel/lugo - test with eyes open) - 0(Absent) 8. Sensory Loss (pinprick arms/legs/face) - 0(Normal) 9. Best Language: Aphasia (description/naming/reading) - 0(No aphasia) 10. Dysarthria (speech clarity - read or repeat words) - 0(Normal) 11. Extinction and Inattention (visual/tactile/auditory/spatial/personal) - 0(No abnormality) Initials: aa5 NIH Stroke Scale - NIH Stroke Score Date: 09/08/2021 Time: 13:15 Total Score = 3 1a. Level of Consciousness (LOC) - 0(Alert) 1b. Level of Consciousness (LOC) (Month \\T\\ Age) - 0(Both) 1c. LOC Commands (Open \\T\\ Closes Eyes/Vice President Of Compliance) - 0(Both) 2. Best Gaze (Lateral Gaze Paresis) - 0(Normal) 3. Visual Field Loss - 0(No visual loss) 4. Facial Palsy - 1(Minor Paralysis) 5a. Left Arm: Motor (10-second hold) - 1(Drift) 5b. Right Arm: Motor (10-second hold) - 0(No drift) 6a. Left Leg: Motor (5-second hold - always test supine) - 0(No drift) 6b. Right Leg: Motor (5-second hold - always test supine) - 0(No drift) 7. Limb Ataxia (finger/nose \\T\\ heel/lugo - test with eyes open) - 1(Present in one limb) 8. Sensory Loss (pinprick arms/legs/face) - 0(Normal) 9. Best Language: Aphasia (description/naming/reading) - 0(No aphasia) 10. Dysarthria (speech clarity - read or repeat words) - 0(Normal) 11. Extinction and Inattention (visual/tactile/auditory/spatial/personal) - 0(No abnormality) Initials: cp NIH Stroke Scale - NIH Stroke Score Date: 09/08/2021 Time: 13:44 Total Score = 2 1a. Level of Consciousness (LOC) - 0(Alert) 1b. Level of Consciousness (LOC) (Month \\T\\ Age) - 0(Both) 1c. LOC Commands (Open \\T\\ Closes Eyes/Vice President Of Compliance) - 0(Both) 2. Best Gaze (Lateral Gaze Paresis) - 0(Normal) 3. Visual Field Loss - 0(No visual loss) 4. Facial Palsy - 0(Normal) 5a. Left Arm: Motor (10-second hold) - 0(No drift) 5b. Right Arm: Motor (10-second hold) - 0(No drift) 6a. Left Leg: Motor (5-second hold - always test supine) - 2(Drift, some effort against gravity) 6b. Right Leg: Motor (5-second hold - always test supine) - 0(No drift) 7. Limb Ataxia (finger/nose \\T\\ heel/lugo - test with eyes open) - 0(Absent) 8. Sensory Loss (pinprick arms/legs/face) - 0(Normal) 9. Best Language: Aphasia (description/naming/reading) - 0(No aphasia) 10. Dysarthria (speech clarity - read or repeat words) - 0(Normal) 11. Extinction and Inattention (visual/tactile/auditory/spatial/personal) - 0(No abnormality) Initials: aa5 NIH Stroke Scale - NIH Stroke Score Date: 09/08/2021 Time: 17:30 Total Score = 2 1a. Level of Consciousness (LOC) - 0(Alert) 1b. Level of Consciousness (LOC) (Month \\T\\ Age) - 0(Both) 1c. LOC Commands (Open \\T\\ Closes Eyes/Vice President Of Compliance) - 0(Both) 2. Best Gaze (Lateral Gaze Paresis) - 0(Normal) 3. Visual Field Loss - 0(No visual loss) 4. Facial Palsy - 0(Normal) 5a. Left Arm: Motor (10-second hold) - 0(No drift) 5b. Right Arm: Motor (10-second hold) - 0(No drift) 6a. Left Leg: Motor (5-second hold - always test supine) - 2(Drift, some effort against gravity) 6b. Right Leg: Motor (5-second hold - always test supine) - 0(No drift) 7. Limb Ataxia (finger/nose \\T\\ heel/lugo - test with eyes open) - 0(Absent) 8. Sensory Loss (pinprick arms/legs/face) - 0(Normal) 9. Best Language: Aphasia (description/naming/reading) - 0(No aphasia) 10. Dysarthria (speech clarity - read or repeat words) - 0(Normal) 11. Extinction and Inattention (visual/tactile/auditory/spatial/personal) - 0(No abnormality) Initials: aa5 Signatures: Dispatcher [employer] EDMS Maira Downs RN RN mw Woody, Diana, RN RN dw Williams, Irene, RN RN iw Calderon, Audri, RN RN aa5 Niels Joshi PA PA cp Leal, Jahala, RN RN jl7 Nba Santos RN RN jd3 Joaquín Velasquez DO DO ms3 Nick Christine RN as6 Arielle Elizondo RN jl7 Corrections: (The following items were deleted from the chart) 13:53 13:15 PCT+C.LAB.BRZ ordered. EDMS EDMS 13:53 13:15 LACTATE+C.LAB.BRZ ordered. EDMS EDMS 13:53 13:15 BLOOD CULTURE*+BA.LAB.BRZ ordered. EDMS EDMS 17:34 16:39 cp dw 17:46 16:39 Telemetry/MedSurg (Inpatient) cp aa5 17:46 17:34 231 dw aa5 17:53 17:46 [facility] ER HOLD aa5 iw 17:53 17:46 aa5 iw 18:32 17:53 Telemetry/MedSurg (Inpatient) iw iw 18:32 17:53 231 iw iw 19:20 18:32 iw mw 20:14 18:32 [facility] ER HOLD iw mw 20:14 19:20 ERHOLD- mw mw 09/09 19:54 09/08 15:55 Radiologist reports: right frontal acute/subacute infarct cp cp
[2021-09-08] MEDS ORDERED: MORPHINE 2 MG/ML SYR IV PRN (16:50)
[2021-09-08] MEDS ORDERED: ONDANSETRON 4 MG/2 ML VIAL IV PRN (16:50)
[2021-09-08] MEDS ORDERED: ALBUTEROL 2.5 MG/3 ML NEB SOL NEB PRN (16:50)
--- NOTE | 2021-09-08 16:50 | P.HP ---
Certification for Inpatient With expected LOS: >2 Midnights Patient will require the following post-hospital care: Rehabilitation Practitioner: I am a practitioner with admitting privileges, knowledge of patient current condition, hospital course, and medical plan of care. Services: Services provided to patient in accordance with Admission requirements found in Title 42 Section 412.3 of the Code of Federal Regulations Patient History Date of Service: 09/08/21 Reason for admission: Weakness, slurred speech History of Present Illness: 85-year-old female with history of hypertension, COPD,Right carotid endarectromy , prior pAF , follows with Dr Church , not on chronic A/c, brought in by daughter today because of 3-day history of increasing low back pain, progressive weakness with incontinence of bladder. Daughter also reports patient has been having sluggish and slow speech. Patient's symptoms continue to worsen since the last 1 day. She denies any fever or chills. No new medication changes. She has taken patient to [facility] emergency room last night. Patient was discharged today after being given morphine and diazepam. However patient continues to have shakes with progressive weakness and daughter has brought the patient to the hospital. Last known normal was over 14 hours prior to presentation. On arrival patient was noted with EKG showing A. fib with RVR with rates up to 130s but improved with multiple doses of IV metoprolol to 80s now. She had a head CT scan done which shows evidence of acute to subacute left frontal nonhemorrhagic infarct. She has been admitted for acute CVA with new onset A. fib. Neurology has been consulted Allergies No Known Allergies Allergy (Unverified 11/20/17 11:17) Home Medications: Losartan Potassium [Cozaar*] 50 mg PO DAILY 11/20/17 Metoprolol Tartrate [Lopressor*] 25 mg PO BEDTIME 11/20/17 Metoprolol Tartrate [Lopressor] 50 mg PO DAILY 11/20/17 Albuterol Sulfate [Proair Hfa] 8.5 gm IH TID PRN #1 hfa.aer.ad 11/22/17 Aspirin [Aspirin EC 81 MG] 81 mg PO DAILY #90 tablet. 11/22/17 Benzonatate [Tessalon Perle] 100 mg PO TID PRN #10 cap 11/22/17 Budesonide/Formoterol Fumarate [Symbicort 160-4.5 Mcg Inhaler] 2 puff IH BID #1 hfa.aer.ad 11/22/17 Levofloxacin [Levaquin] 500 mg PO DAILY #7 tablet 11/22/17 - Past Medical/Surgical History Diabetic: No -: HTN -: Tricuspid valve regurgitation -: Pneumonia -: Coronary artery clot removal -: Appe -: INGUINAL HERNIA REPAIR -: BUNION REMOVAL (R) -: Bilateral lens implant -: Bilateral cataract surgery -: Hysterectomy - Social History Smoking Status: Never smoker Alcohol use: No CD- Drugs: No Caffeine use: No Place of Residence: Home Review of Systems General: Weakness Neurological: Change in Speech Physical Examination - Physical Exam General: Alert, In no apparent distress, Oriented x2 HEENT: Atraumatic, Normocephalic, PERRLA Neck: Supple, 2+ carotid pulse no bruit Respiratory: Clear to auscultation bilaterally, Normal air movement Cardiovascular: No edema, Irregular heart rate/rhythm, Abnormal S1 S2 Capillary refill: <2 Seconds Gastrointestinal: Normal bowel sounds, Soft and benign, Non-distended Musculoskeletal: No clubbing, No swelling Neurological: Cranial nerves 3-12 intact, Other (power left LE 3/5 , all others 4/5 ), Abnormal speech, Abnormal strength - Studies Laboratory Data (last 24 hrs) 09/08/21 13:19: PT 12.0, INR 1.09 09/08/21 13:19: WBC 7.6, Hgb 15.8 H, Hct 47.8 H, Plt Count 309 09/08/21 13:19: Sodium 138, Potassium 4.7, BUN 13, Creatinine 0.90, Glucose 145 H, Magnesium 2.6 H D, Total Bilirubin 0.6, AST 43 H, ALT 56, Alkaline Phosphatase 85 Microbiology Data (last 24 hrs): 09/08/21 14:38 Nasopharnyx Influenza Type A Antigen Screen - Final 09/08/21 14:38 Nasopharnyx Influenza Type B Antigen Screen - Final Assessment and Plan - Advance Directives Does patient have a Living Will: No Does patient have a Durable POA for Healthcare: Yes Physician Review: Patient Assessed, Agree with Above Assessment and Plan Physician Review Additional Text: CT head No other acute infarction changes seen. Patient has underlying mild to moderate atrophy and moderate chronic ischemic change. Ventricles are in proportion to the volume loss. No abnormal extra-axial fluid collections. Dense arterial tree calcifications are present. Mastoid air cells and visualized portions of the paranasal sinuses are clear. No acute bony findings. IMPRESSION: Acute/subacute nonhemorrhagic infarction right frontal lobe as detailed. Mild to moderate atrophy with moderate severity chronic ischemic change. Impression Subacute right frontal CVA New onset A. fib Hypertension History of COPDstable Plan We will admit patient to stroke unit Will place on telemetry Giving new onset CVA, will do heparin drip for A. fib since high risk of conversion to hemorrhagic CVA over the next 48 hours Keep MAP between 90-1 10 Start amiodarone GTTfor A. fib control Keep n.p.o. Speech and swallow evaluation Obtain MRI/carotid Doppler/homocystine level/TSH in the morning/echocardiogram for EF as well as rule out vegetation Cardiology consult in the Neurology consult Consult PT OT as well as acute rehab Start gentle IV fluid D5 NS for now Strict glycemic control with Accu-Cheks monitoring DVT prophylaxisLovenox
[2021-09-08] MEDS ORDERED: ASPIRIN 600 MG/SUPP PR ONE (16:54)
[2021-09-08] MEDS ORDERED: HYDRALAZINE HCL 20 MG/ML VIAL IV PRN (16:54)
[2021-09-08] MEDS ORDERED: AMIODARONE HCL 900 MG in D5W 482 ML IV SCH (17:00)
[2021-09-08] MEDS ORDERED: HEPARIN/D5W 25,000 UNIT/500 ML BAG IV SCH (17:00)
[2021-09-08] MEDS ORDERED: HEPARIN/D5W 25,000 UNIT/500 ML BAG IV ONE (17:25)
--- NOTE | 2021-09-08 18:29 | RAD REPORT ---
EXAM DESCRIPTION: - CP - 09/08/2021 5:54 pm CLINICAL HISTORY: cva COMPARISON: No comparisons TECHNIQUE: Real-time sonographic evaluation of bilateral carotid and vertebral systems was performed . Rodriguez scale and Doppler interrogation were performed with waveform tracing bilaterally. FINDINGS: Normal high resistance waveforms are noted in both external carotid arteries. The common c arotid arteries and internal carotid arteries show normal low resistance waveforms. Calcified plaquing changes are present at the left carotid bulb extending into the left ICA. No signi ficant calcified plaquing changes on the right. The left calcified plaques do not show significant severo saul narrowing on visual inspection. Bilateral common carotid artery velocities are in normal range. Left ICA velocity is elevated relative to the common carotid velocity though the actual peak velocit y value is not outside of normal range. Right-side ICA/CCA ratio is normal. Left ICA/CCA ratio elevat ion is believed to be primarily due to low common carotid velocity. Antegrade flow seen in both vertebral arteries. Velocity values and ratios were recorded and are retained in the patient's imaging records. IMPRESSION: Left carotid bulb and proximal ICA calcified plaquing changes are present. Analysis of t collective data would indicate that a stenosis exceeding 50% is not identified. No significant stenosis in the right carotid vasculature.
[2021-09-08] MEDS: INSULIN -REGULAR HUMAN 50 UNIT/0.5 ML ML SQ SCH (21:00)
[2021-09-08 21:03] LABS: Protime INR 1.06
[2021-09-08] MEDS: D5 0.9 NS 1,000 ML IV SCH (23:25)
[2021-09-08 23:45] VITALS: BMI 26.2
[2021-09-09 05:18] LABS: ALT/SGPT 45 U/L (12-78); AST/SGOT 32 U/L (15-37); Albumin 3.3 g/dL (3.4-5.0); Alkaline Phosphatase 72 U/L (45-117); BUN Blood Urea Nitrogen 12 mg/dL (7-18); Bicarbonate 29 mmol/L (21-32); Glomerular Filtration Rate 57 ml/min (=/>90); Glucose Level 135 mg/dL (74-106); HDL Cholesterol 45 mg/dL (40-60); LDL Cholesterol, Calculated 110 mg/dL (<130); Potassium 4.3 mmol/L (3.5-5.1); Protein, Total 6.6 g/dL (6.4-8.2); Sodium Level 139 mmol/L (136-145)
[2021-09-09 05:20] LABS: C-Reactive Protein < 2.90 mg/L (<3.00)
[2021-09-09] MEDS: INSULIN -REGULAR HUMAN 50 UNIT/0.5 ML ML SQ SCH ×4 (07:30→21:00)
--- NOTE | 2021-09-09 07:54 | RAD REPORT ---
EXAM DESCRIPTION: CT - Head angio - 09/09/2021 7:37 am CLINICAL HISTORY: right CVA COMPARISON: Head Brain Wo Cont dated 09/08/2021; Carotid Artery Bilateral dated 09/08/2021 TECHNIQUE: CT angiography of the head was performed with MIPs. All CT scans are performed using dose optimization technique as appropriate and may include automated exposure control or mA/KV adjustment according to patient size. FINDINGS: Anterior circulation: Carotid artery calcifications. No aneurysm or large vessel occlusion.No arteriovenous malformation id entified. Posterior circulation: Moderate focal stenosis of the right P1/P2 segment of the FRIT BURNER. No hemodynamically significant stenosi s. No arteriovenous malformation identified. Slight left dominance. IMPRESSION: No large vessel occlusion or aneurysm is identified. Moderate focal stenosis of the right P1/P2 segment of the posterior cerebral artery.
--- NOTE | 2021-09-09 07:56 | RAD REPORT ---
EXAM DESCRIPTION: CT - Neck Angio - 09/09/2021 7:37 am CLINICAL HISTORY: right CVA COMPARISON: Head angio dated 09/09/2021 TECHNIQUE: CT angiography of the neck vessels was performed with MIPs. All CT scans are performed using dose optimization technique as appropriate and may include automated exposure control or mA/KV adjustment according to patient size. FINDINGS: A left aortic arch is identified with normal three vessel configuration of the great vesse ls. No significant flow abnormality is seen of the common carotid bilaterally. No significant stenosis is identified involving the cervical segments of both internal carotid arteri es. Normal flow is seen within both vertebral arteries. Slightly left dominant. Calcified plaque is present at the left carotid bifurcation. IMPRESSION: No significant flow abnormality of the neck vessels is identified.
--- NOTE | 2021-09-09 08:36 | RAD REPORT ---
EXAM DESCRIPTION: MRI - Brain W/Wo Cont - 09/09/2021 8:13 am CLINICAL HISTORY: cva COMPARISON: Head angio dated 09/09/2021; Head Brain Wo Cont dated 09/08/2021 TECHNIQUE: Sagittal T1-weighted images were obtained along with PD/heavily T2-weighted and T2-FLAIR images. Axial DWI and ADC mapping sequences were also obtained along with coronal heavily T2-weighted images were obtained. Post contrast enhanced images were obtained. FINDINGS: Diffusion restriction associated with a approximately 4.2 by 3.4 cm masslike structure in the right frontal lobe. This is peripherally T2 hyperintense and centrally T2 hypointense. Mild curvi linear T1 hyperintensity associated but generally the lesion is T1 hypointense. There are other areas of diffusion restriction within the right parietal lobe and at the right basal ganglia. Chronic smal l vessel ischemic changes noted. No associated masslike enhancement though there are some prominent e nhancing vessels at the right frontal lobe "Mass" . No midline shift or hydrocephalus. No mastoid effusion.Paranasal sinuses are clear. IMPRESSION: Multifocal acute infarcts in the right cerebral hemisphere involving the right frontal l obe, right basal ganglia, and right parietal lobe. The parietal lobe infarcts may be watershed distri bution. A more mass-like location in the right frontal lobe is noted that is favored to represent an evolving late acute infarct with areas of petechial hemorrhage. While the areas is somewhat mass-like , no vasogenic edema or nodular enhancement is present to suggest a neoplasm. Recommend short term fo llow-up MRI with and without contrast (4-6 weeks) to re-assess.
--- NOTE | 2021-09-09 09:08 | EKG ---
Test Date: 2021-09-09 Test Time: 07:47:44 Network Engineer Administrator: JOHN MEASUREMENT RESULTS: Intervals: Rate: 68 DE: 146 QRSD: 140 QT: 440 QTc: 467 [place]: P: 60 DE: 146 QRS: 86 T: 26 INTERPRETIVE STATEMENTS: Normal sinus rhythm Right bundle branch block Abnormal ECG Compared to ECG 09/08/2021 12:53:40 Atrial fibrillation no longer present Electronically Signed On 09-09-21 09:07:55 CDT by Joe Church
--- NOTE | 2021-09-09 09:11 | EKG ---
Test Date: 2021-09-08 Test Time: 12:53:40 Medical Technician Assistant: DAMASO MEASUREMENT RESULTS: Intervals: Rate: 117 ME: QRSD: 118 QT: 310 QTc: 432 [place]: P: ME: QRS: 120 T: 6 INTERPRETIVE STATEMENTS: Atrial fibrillation with rapid ventricular response Right bundle branch block Abnormal ECG Compared to ECG 11/20/2017 20:36:56 Sinus tachycardia no longer present Atrial premature complex(es) no longer present Aberrant conduction of supraventricular beat(s) no longer present Electronically Signed On 09-09-21 09:08:20 CDT by Joe Church
[2021-09-09] MEDS: ASPIRIN EC 81 MG TAB PO SCH (09:27)
[2021-09-09] MEDS: D5 0.9 NS 1,000 ML IV SCH (10:21)
--- NOTE | 2021-09-09 13:08 | P.PN ---
Subjective Date of Service: 09/09/21 Chief Complaint: Weakness, slurred speech Subjective: No new changes, No C/O voiced (Feels better this morning, tolerating p.o. well) Physical Examination - Vital Signs Temperature: 97.9 F Blood Pressure: 151/71 Pulse: 68 Respirations: 22 Pulse Ox (%): 96 - Physical Exam General: Alert, In no apparent distress, Oriented x3 HEENT: Atraumatic, Normocephalic, PERRLA Neck: Supple, 2+ carotid pulse no bruit, JVD not distended Respiratory: Clear to auscultation bilaterally, Normal air movement Cardiovascular: Normal pulses, Regular rate/rhythm, Normal S1 S2 Gastrointestinal: Normal bowel sounds, Soft and benign, Non-distended Neurological: Abnormal speech (still slureed speech but improving , pwer still 3/5 LLE, 4/5 globally ) - Studies Laboratory Data (last 24 hrs) 09/08/21 13:19: APTT 26.4 09/08/21 13:19: PT 12.0, INR 1.09 09/08/21 13:19: WBC 7.6, Hgb 15.8 H, Hct 47.8 H, Plt Count 309 09/08/21 13:19: Sodium 138, Potassium 4.7, BUN 13, Creatinine 0.90, Glucose 145 H, Magnesium 2.6 H D, Total Bilirubin 0.6, AST 43 H, ALT 56, Alkaline Phosphatase 85 Microbiology Data (last 24 hrs): 09/08/21 14:38 Nasopharnyx Influenza Type A Antigen Screen - Final 09/08/21 14:38 Nasopharnyx Influenza Type B Antigen Screen - Final Assessment And Plan Physician Review: Patient Assessed, Agree with Above Assessment and Plan Physician Review Additional Text: CT head No other acute infarction changes seen. Patient has underlying mild to moderate atrophy and moderate chronic ischemic change. Ventricles are in proportion to the volume loss. No abnormal extra-axial fluid collections. Dense arterial tree calcifications are present. Mastoid air cells and visualized portions of the paranasal sinuses are clear. No acute bony findings. IMPRESSION: Acute/subacute nonhemorrhagic infarction right frontal lobe as detailed. Mild to moderate atrophy with moderate severity chronic ischemic change. Impression Subacute right frontal CVA New onset A. fib Hypertension History of COPDstable Plan Improving Continue amiodarone dripswitch to p.o. Continue aspirin Start Eliquis for A. fib Since rate controlled and no new hemorrhagic conversion of infarct on MRI, can start Eliquis Follow PT/OT Neurology consult Follow echocardiogrampending DC IV fluid/tolerating p.o. May need rehab consult and eval DVT prophylaxisLovenox 09/09/21 13:07 Time Spent Managing PTS Care (In Minutes): 35
[2021-09-09] MEDS ORDERED: ACETAMINOPHEN 325 MG TABLET PO PRN (16:35)
--- NOTE | 2021-09-09 18:30 | CON ---
Date of Consultation: 09/09/[address] Monahan on 09/08/2021. I saw the patient on 09/09/2021. Reason For Consultation: Atrial fibrillation and CVA. History Of Present Illness: Ms. Al is 85-year-old with history of hypertension, pneumonia, COPD, only takes metoprolol at home. Has no allergies. Come in with a stroke, was found to have a positiv e head CT with stroke in the right frontal lobe. Chest x-ray is negative. Abdominal CT is negative, 50% carotid stenosis on the left. Atrial fibrillation, rate controlled. BNP was elevated at 3344. No cardiac symptoms. She was placed on IV amiodarone and converted to sinus rhythm. NB/MODL Voice ID: [id number] Report ID: [id number]
--- NOTE | 2021-09-09 18:37 | CON ---
CONTINUATION Past Medical History: Includes hypertension, pneumonia, and COPD. Allergies: NONE. Medications: Include metoprolol. Review of Systems: Negative. Social History: Negative. Family History: Negative. Physical Examination: General: She was in atrial fibrillation at 85. No acute distress. HEENT: Negative. Neck: Supple with no bruit. Chest: Clear. Cardiac: Exam revealed a sinus rhythm. No murmurs, gallops, or rubs. Abdomen: Benign. Extremities: Revealed no clubbing, cyanosis, or edema. Diagnostic Data: As stated earlier. Impression And Plan: Atrial fibrillation in the setting of cerebrovascular accident if she needs ant icoagulation. Echocardiogram is pending. She is on metoprolol, heparin, inhalers, aspirin, hydralaz ine, I agree with her present regimen. We will see what her echo shows when she goes home. She will have to be on beta-jessica and anticoagulants such as Eliquis or Xarelto. We will see her in the office as an outpatient. She will eventually need a cardiac workup including Lexiscan. We will cont inue to follow her. BECCA/ANISHA Voice ID: [id number] Report ID: [id number]
[2021-09-09] MEDS ORDERED: APIXABAN 2.5 MG TABLET PO SCH (21:00)
[2021-09-09] MEDS ORDERED: ATORVASTATIN 40 MG TAB PO SCH (21:00)
[2021-09-09] MEDS ORDERED: APIXABAN 5 MG TABLET PO SCH (21:00)
[2021-09-09] MEDS ORDERED: METOPROLOL TAR 50 MG TAB PO SCH (21:00)
[2021-09-09] MEDS: APIXABAN 5 MG TABLET PO SCH (21:19)
[2021-09-09] MEDS: AMIODARONE HCL 200 MG TAB PO SCH (21:19)
[2021-09-09] MEDS: METOPROLOL TAR 25 MG TAB PO SCH (21:19)
--- NOTE | 2021-09-09 23:27 | CON ---
Reason For Consultation: Consultation called because of stroke. History Of Present Illness: Ms. Al is an 85-year-old patient with hypertension; atrial fibrillati on; right carotid disease, status post endarterectomy; chronic obstructive pulmonary disease, who is seen by a joint machine operator and was off anticoagulation apparently planning on cardiac procedure. The pat genet's daughter who was in the room and the patient herself noted about 3-day history of back pain an d diffuse weakness with problems concerning her bladder and sluggish slurred speech that apparently w orsened the day prior to coming to [facility]. Before coming to [facility], she was seen at [facility] the night before coming to [facility] and was discharged with morphin e and diazepam. After receiving those medications, obviously the patient worsened, she had more peter ing and unstable gait and was then brought to [facility], found to be in atrial fibrillation with rapid ventricular response. She was treated with IV beta jessica with control of her rate, but her CT scan of the head showed evidence of acute and subacute left frontal hemorrhagic infarction. Subsequent brain MRI done earlier today confirmed the presence of multiple strokes. She had right ce rebral hemisphere, right frontal, right basal ganglia, right parietal lobe, and appearing watershed a emely as well. The strokes did have late acute type appearance. There was a possibility of some petec hial hemorrhage as noted by the radiologist. However, given the patient's atrial fibrillation with r apid ventricular response and the potential for more cardioembolic strokes, is likely cause of the st roke. The patient is put on heparin full dose. CT angiogram of her head and neck revealed no large vessel occlusion or aneurysm. No known significant blockage or flow abnormality in her neck. Her mo re recent electrocardiogram did show normal sinus rhythm with right bundle branch block. Carotid art maira ultrasound shows left carotid bulb and proximal ICA calcifications, plaque indicating no stenosis greater than 50%. Laboratory studies showed a slightly elevated hemoglobin of 15.8 and hematocrit 4 7, white blood cell count normal at 7.6. Her PTT is 53.7. Chemistries unremarkable. Glucose 91-135 , calcium 8.3. Magnesium 2.6. Liver function studies are normal. LDL cholesterol 110, HDL 45. TSH 1.23. Urinalysis is essentially unremarkable except for 2+ protein and trace ketones. COVID-19 is negative. Since patient did not receive tPA, but she had multiple strokes, she was kept in ICU overnight and is actually at this point, on the floor and has recovered very well with the ability to ambulate with s light instability, did drift to the left, but did not fall. She did require verbal cues using a fron t wheeled walker with moderate assistance. Past Medical History: Hypertension, atrial fibrillation, chronic obstructive pulmonary disease. Past Surgical History: Right carotid endarterectomy, bilateral cataract surgery and lens implants, b union removal, inguinal hernia repair, appendectomy, and hysterectomy. Allergies: NO KNOWN DRUG ALLERGIES. Medications: Cozaar 50 mg daily, Lopressor 25 mg at bedtime and 50 mg a day, ProAir HFA 8.5 g inhale d 3 times daily as needed, aspirin 81 mg daily, Tessalon Perles 100 mg 3 times daily, Symbicort 2 puf fs twice daily, Levaquin. Social History: No alcohol, tobacco, or IV drug use. Review of Systems: As noted. She has had diffuse weakness, difficulty with slurred speech. She did have mild shortness of breath. No chest pain, palpitations. No dermatological issues or psychiatric issues. Physical Examination: Vital Signs: Blood pressure 138/73, pulse 82, respiratory rate 16-21, temperature 98.0, oxygen satur ation 94%. Weight 167 pounds, height 5 feet 7 inches, BMI 26.2. General: Ms. Al is resting in bed. She is in no significant distress. HEENT: She is normocephalic, atraumatic. Sclerae anicteric. Oropharynx pink and moist. Neck: Supple. Chest: Clear. Heart: Regular. Extremities: Show no edema or cyanosis. Neurological: She is alert and oriented to situation and place, person. She follows commands approp riately. Cranial nerves show decrease in the left nasolabial fold with no excursions. Decreased sen sation in the left face compared to the right, otherwise intact cranial nerves. Motor exam, subtle d ecrease in strength in the left compared to right upper extremity. Sensation is slightly decreased o n the left compared to right upper extremity and lower extremity slight decrease in sensation on the left compared to the right. Motor, 5+/5 in the left compared or 5/5 in the right lower extremity. C oordination, intact. Gait, she did require moderate assistance ambulating with a rolling walker. Assessment: Ms. Al is an 85-year-old patient with likely cardioembolic strokes in the setting of atrial fibrillation while off anticoagulation. She has hypertension, chronic obstructive pulmonary d isease, dyslipidemia. Plan: She should be on full-dose anticoagulation. That decision will be made after a repeat CT scan if it is negative for any post stroke hemorrhage. If it is positive, but with minimal bleeding, lik e petechial bleeding, we will recommend 2.5 mg Eliquis twice daily and aspirin 81 mg daily. Also, Li pitor 40 mg at bedtime. Continue antihypertensive medications including Lopressor 25 mg daily, amiod arone 200 mg twice daily. After the patient is evaluated by Physical Therapy, I would recommend the patient be transferred to acute inpatient rehabilitation to help recover the very best. Continue cur rent medications. Please note, DVT prophylaxis should be with the Eliquis as well. ANEUDY/ANISHA Voice ID: [id number] Report ID: [id number]
[2021-09-10] MEDS: METOPROLOL TARTRATE 5 MG/5 ML INJ IV PRN ×2 (01:36→07:52)
[2021-09-10 05:32] VITALS: TEMP 97.2
[2021-09-10] MEDS: ASPIRIN EC 81 MG TAB PO SCH (07:12)
[2021-09-10] MEDS: METOPROLOL TAR 25 MG TAB PO SCH (07:12)
[2021-09-10] MEDS: AMIODARONE HCL 200 MG TAB PO SCH (07:13)
[2021-09-10] MEDS: APIXABAN 5 MG TABLET PO SCH (07:13)
[2021-09-10] MEDS: INSULIN -REGULAR HUMAN 50 UNIT/0.5 ML ML SQ SCH (07:15)
--- NOTE | 2021-09-10 07:48 | RAD REPORT ---
EXAM DESCRIPTION: CT - Head Brain Wo Cont - 09/10/2021 7:29 am CLINICAL HISTORY: f/u brain bleed COMPARISON: Head angio dated 09/09/2021; Head Brain Wo Cont dated 09/08/2021 TECHNIQUE: All CT scans are performed using dose optimization technique as appropriate and may inclu de automated exposure control or mA/KV adjustment according to patient size. FINDINGS: The right frontal lobe infarct has undergone hemorrhagic transformation within new intrapa renchymal hemorrhage. The hemorrhage measures approximately 2.6 cm. No evidence of infarct extension. Trace adjacent subarachnoid. Trace right to left midline shift. No hydrocephalus. Chronic small vess el ischemic changes. Other right-sided infarcts not well appreciated. No skull fracture. No mastoid e ffusion. IMPRESSION: Hemorrhagic transformation of the right frontal lobe infarct with new intrparenchymal he morrhage and trace subarachnoid. Minimal right to left midline shift and no hydrocephalus. No new inf arcts identified. COMMUNICATION The critical information above was relayed directly by me by telephone to Dr. Harjit figueroa on 09/10/21 at 0744.
[2021-09-10] MEDS ORDERED: AMIODARONE HCL 900 MG in Dextrose 5%-Water 482 ML IV SCH (08:00)
[2021-09-10 08:07] VITALS: O2SAT 93
[2021-09-10 08:33] VITALS: BP 146/85
--- NOTE | 2021-09-10 12:53 | ECHO ---
HEIGHT: 5 ft 7 in WEIGHT: 167 lb 8 oz DATE OF STUDY: 09/09/[address]: Ema Monahan MD 2-DIMENSIONAL: YES M.MODE: YES DOPPLER: YES COLOR FLOW: YES TDS: PORTABLE: YES DEFINITY: BUBBLE STUDY: DIAGNOSIS: CEREBRAL VASCULAR ACCIDENT, RULE OUT VEGETATION CARDIAC HISTORY: CATHERIZATION: NO SURGERY: NO PROSTHETIC VALVE: NO PACEMAKER: NO MEASUREMENTS (cm) DIASTOLIC (NORMALS) SYSTOLIC (NORMALS) IVSd 1.2 (0.6-1.2) LA Diam 2.6 (1.9-4.0) LVEF 63% LVIDd 3.5 (3.5-5.7) LVIDs 2.3 (2.0-3.5) %FS 33% LVPWd 1.4 (0.6-1.2) Ao Diam 2.3 (2.0-3.7) 2 DIMENSIONAL ASSESSMENT: RIGHT ATRIUM: NORMAL LEFT ATRIUM: NORMAL RIGHT VENTRICLE: NORMAL LEFT VENTRICLE: LEFT VENTRICULAR HYPERTROPHY TRICUSPID VALVE: NORMAL MITRAL VALVE: NORMAL PULMONIC VALVE: NORMAL AORTIC VALVE: NORMAL PERICARDIAL EFFUSION: NONE AORTIC ROOT: NORMAL LEFT VENTRICULAR WALL MOTION: DECREASED LEFT VENTRICULAR COMPLIANCE DOPPLER/COLOR FLOW: NORMAL COMMENTS: NORMAL LEFT VENTRICULAR EJECTION FRACTION. LEFT VENTRICULAR HYPERTROPHY. DECREASED LEFT VENTRICULAR COMPLIANCE. NO VEGETATION OR THOMBUS. TECHNOLOGIST: MELVA ESPOSITO
--- NOTE | 2021-09-11 05:55 | P.DS ---
Admission Date: 09/08/21 Discharge Date: 09/10/21 Disposition: TRANSFER TO [facility] Reason for Admission: Weakness, slurred speech Brief History of Present Illness: 85-year-old female with history of hypertension, COPD,Right carotid endarectromy , prior pAF , follows with Dr Church , not on chronic A/c, brought in by daughter today because of 3-day history of increasing low back pain, progressive weakness with incontinence of bladder. Daughter also reports patient has been having sluggish and slow speech. Patient's symptoms continue to worsen since the last 1 day. She denies any fever or chills. No new medication changes. She has taken patient to [facility] emergency room last night. Patient was discharged today after being given morphine and diazepam. However patient continues to have shakes with progressive weakness and daughter has brought the patient to the hospital. Last known normal was over 14 hours prior to presentation. On arrival patient was noted with EKG showing A. fib with RVR with rates up to 130s but improved with multiple doses of IV metoprolol to 80s now. She had a head CT scan done which shows evidence of acute to subacute left frontal nonhemorrhagic infarct. She has been admitted for acute CVA with new onset A. fib. Neurology has been consulted Hospital Course: Patient admitted with acute right CVA with mild weakness. Patient has A. fib with RVR which was initially rate controlled with amiodarone drip. She was started on heparin drip for new CVA. MRI shows multi infarcts with central area with mild petechiae. Patient heparin drip was changed to Eliquis. She developed mild headache prior to first Eliquis dosage bouts which improved with Tylenol. Repeat CAT scan 12 hours later shows slight worsening of hemorrhagic conversion of the CVA. Patient to [facility] for further care after discussion with neurology Vital Signs/Physical Exam: Temp Pulse Resp BP Pulse Ox 97.2 F 120 H 12 146/85 H 94 09/10/21 04:00 09/10/21 08:32 09/10/21 04:00 09/10/21 08:32 09/10/21 04:00 General: Alert, In no apparent distress, Oriented x3 HEENT: Atraumatic, Normocephalic Respiratory: Clear to auscultation bilaterally, Normal air movement Cardiovascular: Normal pulses, Regular rate/rhythm, Normal S1 S2 Gastrointestinal: Normal bowel sounds, Non-distended Musculoskeletal: No clubbing, No swelling Integumentary: No rashes, No breakdown Neurological: Normal speech, Normal strength at 5/5 x4 extr, Normal tone Laboratory Data at Discharge: WBC 7.6 K/uL (4.3-10.9) 09/08/21 13:19 Hgb 15.8 g/dL (12.0-15.0) H 09/08/21 13:19 Hct 47.8 % (36.0-45.0) H 09/08/21 13:19 Plt Count 309 K/uL (152-406) 09/08/21 13:19 PT Cancelled 09/08/21 Unknown INR Cancelled 09/08/21 Unknown APTT Cancelled 09/09/21 15:30 Sodium 139 mmol/L (136-145) 09/09/21 04:48 Potassium 4.3 mmol/L (3.5-5.1) 09/09/21 04:48 BUN 12 mg/dL (7-18) 09/09/21 04:48 Creatinine 0.98 mg/dL (0.55-1.3) 09/09/21 04:48 Glucose 135 mg/dL (74-106) H 09/09/21 04:48 Magnesium 2.6 mg/dL (1.8-2.4) H 09/08/21 20:41 Total Bilirubin 1.0 mg/dL (0.2-1.0) 09/09/21 04:48 AST 32 U/L (15-37) 09/09/21 04:48 ALT 45 U/L (12-78) 09/09/21 04:48 Alkaline Phosphatase 72 U/L (45-117) 09/09/21 04:48 Triglycerides 81 mg/dL (<150) 09/09/21 04:48 Cholesterol 171 mg/dL (<200) 09/09/21 04:48 HDL Cholesterol 45 mg/dL (40-60) 09/09/21 04:48 Cholesterol/HDL Ratio 3.80 09/09/21 04:48 Home Medications: Metoprolol Tartrate [Lopressor] 50 mg PO BID 11/20/17 Albuterol Neb [Proventil 0.083% Neb Soln] 2.5 mg NEB BID PRN 09/09/21 Guaifenesin/Dextromethorphan [Mucinex Dm ER 1,200-60 mg Tab] 1 tab PO Q12H PRN 09/09/21 Followup: Adali Hassan, PAC [Primary Care Provider] - Time spent managing pt's care (in minutes): 35
--- NOTE | 2021-09-11 06:07 | PN ---
Subjective: The patient was followed for DKA, rhabdomyolysis, acute kidney injury, elevated troponin . Echocardiogram showed diastolic congestive heart failure with otherwise normal ejection fraction. Objective: She remains in atrial fibrillation at a rate of 120 with adequate blood pressure. [place] te O2 saturation. Assessment And Plan: She is on amiodarone and Eliquis. As far as the atrial fibrillation is concern ed, she is also on metoprolol that we can increase on an as-needed basis. Continue aspirin. Continu e Lipitor. Neurology is following. We will continue to follow on an as-needed basis. No further ca rdiac workup at this point. BECCA/MODStefania Voice ID: [id number] Report ID: [id number]
== END 2021-09-10 08:40 | disposition short-term general hospital (02) | DRG 64 ==
LOC: ER 12:18 → ERHOLD 16:51 → 3RD-ICU 20:23 → 2ND 09-09 15:45
PROVIDERS: ADMIT Internal Medicine; ATTEND Internal Medicine
DX: I63.9 Cerebral infarction, unspecified (principal); I61.1 Nontraumatic intracerebral hemorrhage in hemisphere, cortical; R47.81 Slurred speech; R53.1 Weakness; R29.702 NIHSS score 2; J44.9 Chronic obstructive pulmonary disease, unspecified; R32 Unspecified urinary incontinence; I10 Essential (primary) hypertension; I48.91 Unspecified atrial fibrillation; Z20.822 Contact with and (suspected) exposure to COVID-19
CPT/HCPCS: 36415; 51702; 70450; 70496; 70498; 70553; 71045; 74177; 80048; 80053; 80061; 80076; 81003; 81015; 82947; 83735; 83880; 84443; 84484; 85025; 85610; 85730; 86140; 87804; 93005; 93306; 93880; 94760; 97116; 97161; 97530; 99285; A9577; J0282; J1644; J7042; J7060; Q9967; U0003

== ENCOUNTER 2021-09-16 12:59 | Inpatient (IN) | payer OTHER, BC ==
--- NOTE | 2021-09-16 15:00 | R.PREADM ---
PRE-ADMISSION SCREENING FORM SCREENING DATE AND TIME 09/15/2021 13:10 (CDT) ANTICIPATED REHAB ADMISSION DATE 09/17/2021 REFERRING FACILITY [facility] REFERRAL DATE AND TIME 09/15/2021 13:11 (CDT) ACUTE ADMIT DATE 09/10/2021 Previous Rehabilitation(s): No. ACUTE METROLOGY SPECIALIST/DC MONITOR WORKER JOSÉ ANTONIO NOLAND ATTENDING PHYSICIAN SARAH CALLAHAN REFERRING PHYSICIAN SARAH CALLAHAN REHAB FACILITY [facility] CLINICAL LIAISON Dwaine Paniagua PHYSICIAN REVIEWER Dr. Odin Morgan M.D. MR# [id number] NAME JAIMIE AL ADDRESS [address] PHONE [facility] [address] DATE OF 1935 AGE 85 SSN# [id number] GENDER female MARITAL STATUS RACE unknown race ADMIT FROM 02 - [facility], [place] PRE-HOSPITAL LIVING SETTING 01 - Home (private home/apt. board/care, assisted living, prison, transitional living) HOME TYPE AND DETAILS Type of home: single family house # of levels in the residence: 1 # of steps within the residence: 0 # of steps to enter the residence: 0 PRE-HOSPITAL LIVING WITH Alone FAMILY SUPPORT No PHONE PRIMARY FAMILY CONTACT ON ADM.? no IS PRIMARY FAMILY CONTACT AUTH. REP.? no PHONE 1ST CONTACT ON ADM. no IS 1ST CONTACT AUTH. REP.? no PHONE 2ND CONTACT ON ADM.? no PATIENT EMPLOYMENT STATUS Retired (for age) PATIENT EMPLOYER No Employer PAYOR INFORMATION: 1ST PAYOR NAME MEDICARE 1ST PAYOR PHONE 1ST PAYOR INJURY/ILLNESS DUE TO ACCIDENT? No ANOTHER DEMOCRAT RESPONSIBLE? 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 ONSET DATE 09/10/2021 REHAB IMPAIRMENT CATEGORY (BRINDA): 01 Stroke (STR) MEETS 60% rule AFFECTED EXTREMITIES: LLE, and LUE PRIMARY DIAGNOSIS-RELATED SURGERIES: Emergency Stroke(Left Body (Right Brain)) - performed by SARAH CALLAHAN on 09/10/2021 INTERVENTIONS: - Stroke Assess pt neuro status regularly Provide aggressive PT, OT and Speech to improve pt level of function - Afib Vitals will be monitored regularly and medicationsadministered as indicated by Physician Monitor pt cardiac and respiratory status regularly - Hypertension Monitor patient B/P and treat with prescribed medications Increase physical activity Implement healthy diet - COPD Monitor for cognitive changes Monitor O2 sats via Pulse Ox and administer supplemental oxygen as prescribed RISK FOR COMPLICATIONS: - DVT Active and Passive ROM exercises Assist patient with frequent position changes Elevate BLE - Stroke Monitor and maintain patient pain level Monitor patient blood pressure - Falls Maintain call light within patient reach for easy access to nursing assistance Provide assistance getting out of bed and with ambulation Provide assistive devices - Pain Assist patient with frequent position changes at least every 2 hours Administer prescribed pain medication as needed - Bleeding Monitor pt for injury Maintain pt safety - Seizures Monitor for headache Monitor and maintain pt BP - Skin Breakdown Encourage ambulation as tolerated Repositioning q 2 hours Use of pillows or foam wedges while in bed SUMMARY OF ACUTE HOSPITALIZATION: On 09/10/2021 she was admitted to [facility] and underwent emergency surgery for Acut e multifocal R MCA territory infarcts with hemorrhagic conversion (Stroke(Left Body (Right Brain))) SARAH Morley. On 09/10/2021 Pt. presented to [facility] with sudden onset of left-side weakness. Pt. is a 85 yo female of unknown race. Pre-morbidly, Pt. was independent/mod-I in Locomotion, Endurance, and Self-Care; and she had good Saf ety Awareness, Transfers Control, and Balance. Currently, she has deficits of Locomotion, Safety Awareness, Transfers Control, Self-Care, and Endura nce. Pt. is now referred to [facility] for acute in-patient rehabilitation in order to maximize patient's functional independence in activities of daily living, strength, ROM, and mobi lity. Patient has realistic goal of being discharged at assistance level 7-Ind to reside at Home with Pt s elf. Mrs. Al is 85 yo female who was admitted to ICU on 09/10/2021 after she presented with generalized weakness, urinary incontinence, back pain and was found to be in A fib with RVR and had evolving late acute R frontal ischemic infarct on head CT. On neuro exam, she had L arm drift, mild L nasolabial fold flattening and slight decreased sensation to LT on L side. MRI revealed multiple R sided diffusion restricting lesions of R frontal lobe, R parietal lobe and R basal ganglia with petechial hemorrhage. Pt had persistent headache and repeat CT showed hemorrhagic conversion of her R frontal stroke. Prior to onset pt was functionally independent and ambulated independently w/o use of AD. She has past medical Hx of HTN, suspected A fib, carotid stenosis s/p R CEA, and COPD. Per clinical, pt was noted walking with PT, facial droop still noted, however weakness is improving. Due to the decline in the patients condition she is not currently safe to remain in her current living arrangement due to reductions in balance, strength, endurance, and an inability to independently perform the necessary activities of daily living and self-care required. Pt is at risk for skin breakdown, DVT, pain, falls, stroke and respiratory and cardiac failure. Our goal is for the patient to become stronger in order for her to safely return home and live independently. Patient would most directly benefit from aggressive 3 hours of daily therapy split between physical therapy and occupational therapy as well as speech therapy if warranted in the acute inpatient rehab setting.She is medically stable with relatively stable labs. She will require 24 hour nursing, doctor supervision SPT) due to her current medical conditions and PHM. The patient is reasonably expected to participate in 3 hours of therapy a day/15 hours per week and receive care with an intensive interdisciplinary approach. COVID-19 screening performed; Patient denies new onset of fever, cough, difficulty breathing, sore throat, body aches and non-allergy nasal congestion in the past 24 hours. Patient denies travel outside of [place] in the past 14 days. Patient denies any contact with someone who has a confirmed diagnosis of or is under investigation for COVID-19 in the past 14 days. PAST MEDICAL HISTORY Afib HTN COPD carotid stenosis STROKE (HCC) PAST SURGICAL HISTORY: carotid stent HYSTERECTOMY Appendectomy MEDICATION ALLERGIES: No Known Drug Allergies (NKDA) ENVIRONMENTAL ALLERGIES: - Substance Allergies None Known - Other Allergies None Known CODE STATUS: Full code WEIGHT/HEIGHT/BMI: WEIGHT 167 lbs HEIGHT 5' 7" BMI 26.2 DIET: - Diet Type Regular - Diet - Solid Texture Regular - Diet - Liquid Texture Regular - Tube Feed N/A None REVIEW OF SYSTEMS: - Gen Alert and awake Lying in bed No apparent distress Oriented to: person, time, and place - Vital Signs Temperature: 98 F SBP/DBP: 141/100 Pulse: 100 Resp: 22 Vital signs stable, afebrile - CVS RRR VITAL SIGNS Temperature: 98 F SBP/DBP: 141/100 Pulse: 100 Resp: 22 Vital signs stable, afebrile MEDICATIONS/TREATMENT: Other- See attached MAR (Medication Administration Record). CURRENT SPHINCTER CONTROL: Pre-hospital bladder status: unspecified # of bladder accidents in the last 7 days prior to screenin Pre-hospital bowel status: unspecified # of bowel accidents in the last 7 days prior to screenin Last Bowel Movement Date: 09/15/2021 CURRENT LOCOMOTION STATUS: distance walked 26 feet with rolling walker DETAILED CURRENT FUNCTIONAL STATUS: - Bladder accident frequency: 7-Ind - No accidents in the past 7 days - Bowel accident frequency: 7-Ind - No accidents in the past 7 days - Walking score based on distance walked: 0(N/A) score based on distance walked: 1(<=50ft) - Wheelchair score based on distance traveled: 0(N/A) QI SCORES: - Self-Care A. Eating 03-Partial/moderate assistance B. Oral hygiene 03-Partial/moderate assistance C. Toileting hygiene 03-Partial/moderate assistance E. Shower/bathe self 04-Supervision or touching assistance F. Upper body dressing 03-Partial/moderate assistance G. Lower body dressing 03-Partial/moderate assistance H. Putting on/taking off footwear 88-Not attempted due to medical condition or safety concerns - Mobility A. Roll left and right 04-Supervision or touching assistance B. Sit to lying 03-Partial/moderate assistance C. Lying to sitting on side of bed 03-Partial/moderate assistance D. Sit to stand 03-Partial/moderate assistance E. Chair/qkw-dw-dymia transfer 03-Partial/moderate assistance F. Toilet transfer 03-Partial/moderate assistance G. Car transfer 88-Not attempted due to medical condition or safety concerns I. Walk 10 feet 03-Partial/moderate assistance J. Walk 50 feet with two turns 88-Not attempted due to medical condition or safety concerns K. Walk 150 feet 88-Not attempted due to medical condition or safety concerns L. Walking 10 feet on uneven surfaces 88-Not attempted due to medical condition or safety concerns M. 1 step (curb) 88-Not attempted due to medical condition or safety concerns N. 4 steps 88-Not attempted due to medical condition or safety concerns O. 12 steps 88-Not attempted due to medical condition or safety concerns P. Picking up object 88-Not attempted due to medical condition or safety concerns R. Wheel 50 feet with two turns 88-Not attempted due to medical condition or safety concerns S. Wheel 150 feet 88-Not attempted due to medical condition or safety concerns - Bladder and Bowel Bladder continence Bowel continence - Endurance Fair - Balance Fair - Safety Awareness Fair CURRENT FUNC. DEFICITS: Self-Care, Mobility, Endurance, Balance, and Safety Awareness CURRENT / PREVIOUS ASSISTIVE DEVICES: Rolling Walker PRIOR SURGERY. DID THE PATIENT HAVE MAJOR SURGERY DURING THE 100 DAYS PRIOR TO ADMISSION?: No THERAPY NOTES FROM ACUTE CARE: Attached. SPECIAL NEEDS: - Safety Concerns Skin breakdown and Fall precautions needed due to skin breakdown risk, Poor balance, and Risk of inju ry - Fall Precautions Due to poor balance PRECAUTIONS: - Fall Precaution Bed alarm TABS alarm Wheel chair alarm - DVT Risk due to restricted mobility and age - Cardiac Precaution Monitor blood pressure, heart rate, lower extremity edema, notify MD for shortness of breath or chest pain Monitor patient for excessive elevation of heart rate and blood pressure during therapy - Skin Breakdown Risk due to restricted mobility and age - Incontinence Bladder Incontinence PATIENT NEEDS ACTIVE AND ONGOING THERAPEUTIC INTERVENTION OF MULTIPLE THERAPY DISCIPLINES, INCLUDING: - Dietary and Nutrition Adequate Nutrition. Nutritional Education. Nutritional Supplements. Evaluate and Treat. - Occupational Therapy Cognitive Retraining. Patient needs Occupational Therapy for a daily minimum of 1.5 hours at least 5 out of 7 days, to improve Activities of Daily Living, including: Eating, Grooming, Bathing, Dressing, Toileting, Toilet Transfers, Community Reintegration, Higher functional activities, Adaptive Equipme nt, Splinting, Household Tasks, and Other activities as determined. Visual Perceptual Training. Evalu ate and Treat. Household Tasks. Patient/Family Education. ADL Training. Safety Awareness. - Speech Therapy Cognitive Training. Expressive Language Skills. Memory Strategies. Patient needs Speech Therapy for a daily minimum of 1.5 hours at least 5 out of 7 days, to improve: Swallowing, Cognition, Language Ski lls, and Compensatory Strategies. Receptive Language Skills. Speech Intelligibility Training. Evaluat e and Treat. - Physical Therapy Patient needs Physical Therapy for a daily minimum of 1.5 hours at least 5 out of 7 days, to improve: Mobility, Strengthening, Transfers, Stretching, ROM, Endurance, Ability to manage stairs, Gait, and Balance. Balance Training. Evaluate and Treat. Gait Training. Safety Awareness. Transfer Training. LE Strengthening. PATIENT NEEDS CLOSE MEDICAL SUPERVISION BY A REHABILITATION PHYSICIAN FOR: Coordination of Treatment Team Bowel and Bladder Management Medical and Co-Morbidity Management Pain Management PATIENT REQUIRES 24X7 REHAB NURSING FOR MEDICAL AND FUNCTIONAL MGT. OF THE FOLLOWING DEFICITS: Patient requires 24x7 Rehabilitation Nursing for: Pain Issues, Identifying and preventing risk factor s, Monitoring and reporting current medical conditions, Assisting with ambulation and transfer, Chandana ting with all ADL-s, Teaching patients about disease process and medications, Family teaching, Provid ing safe environment, Bowel and Bladder Issues, Skin Integrity, and Medication Management PATIENT REQUIRES INTENSIVE, COORDINATED INTERDISCIPLINARY APPROACH TO REHAB: Patient needs Dietary and Nutrition Services for: Adequate Nutrition, Nutritional Supplements, and Nu tritional Education Patient needs Human Resources Administrator and/or Case Management for: Discharge Planning, Arranging Home Equipmen t or Services, and Family Interventions PATIENT REHAB POTENTIAL: Virgil AL is able and expected to receive 3 hours of individualized therapy daily on at least 5 of dagoberto ry 7 days Virgil Whittaker prognosis for significant practical improvement within a reasonable period of time appears Good Expected level of measurable improvement will be of a practical value to Virgil AL's functional capaci ty or adaptations to impairments Has a viable Discharge Plan Medically appropriate; condition is sufficiently stable to participate in intensive rehab program DISCHARGE PLAN: - Estimated Length of Stay (days) 17. - Consensus on plan Discharge plan has been discussed with primary caregiver. Patient/Family is in agreement with the stan n. Primary caregiver is in agreement with the plan. - Patient/Family Goals Return home independently. - Planned Living Setting Upon Discharge Home, to live alone. Transitional Living. Primary caregiver: Pt self. RECOMMENDED CARE LEVEL: IRF RECOMMENDATION DETAILS: Recommended Admission to Comprehensive Rehabilitation Program to Increase Functional [place] SCREENER'S COMPLETENESS CONFIRMATION: - Screening Confirmation The patient data collection on this preadmission screening form is finished PHYSICIANS REVIEW AND ADMISSION DETERMINATION Admit - Based on my review of the Pre-Admission Screening results, in my medical judgment and experie nce, I concur with the findings and recommend admission to [facility], as this patient requires an IRF level of care. SIGNATURE PANEL: Straight Knife Machine Cutter - [electronically] signed by Dwaine Paniagua on 09/16/2021 at 14:36 (CDT) Straight Knife Machine Cutter - [electronically] signed by Basilio Mchugh PT on 09/16/2021 at 14:45 (CDT) Physician Reviewer - [electronically] signed by Dr. Odin Morgan M.D. on 09/16/2021 at 14:58 (CDT )
[2021-09-17] MEDS ORDERED: ALBUTEROL INHALER 60 PUFF/8 GM IH PRN (15:26)
[2021-09-17] MEDS ORDERED: BENZONATATE 100 MG CAP PO PRN (15:27)
[2021-09-17] MEDS ORDERED: ONDANSETRON 4 MG (ODT) TAB PO PRN (15:36)
[2021-09-17] MEDS ORDERED: TRAMADOL HCL 50 MG TAB PO PRN (15:36)
[2021-09-17 16:22] VITALS: BMI 26.2
--- NOTE | 2021-09-17 17:36 | R.HP ---
HISTORY AND PHYSICAL FACILITY: [facility] ENCOUNTER DATE AND TIME: 09/17/2021 17:28 (CDT) MR#: [id number] NAME JAIMIE AL ADDRESS: [place] [id number] CITY: [place] [address]IP [id number] PHONE: DATE OF : 1935 AGE: 85 SSN# [id number] GENDER: Female DEXTERITY Unknown dexterity MARITAL STATUS RACE Unknown race PRE-HOSPITAL LIVING SETTING 01 - Home (private home/apt. board/care, assisted living, usp, transitional living) PRE-HOSPITAL LIVING WITH Alone ENCOUNTER PHYSICIAN: Dr. Odin Morgan M.D. 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 On 09/10/2021 Pt. presented to [facility] with sudden onset of left-side weakness. Pt. is a 85 yo female of unknown race. Pre-morbidly, Pt. was independent/mod-I in Locomotion, Endurance, and Self-Care; and she had good Saf ety Awareness, Transfers Control, and Balance. Currently, she has deficits of Locomotion, Safety Awareness, Transfers Control, Self-Care, and Endura nce. Pt. is now referred to [facility] for acute in-patient rehabilitation in order to maximize patient's functional independence in activities of daily living, strength, ROM, and mobi lity. Patient has realistic goal of being discharged at assistance level 7-Ind to reside at Home with Pt s elf. Mrs. Al is 85 yo female who was admitted to ICU on 09/10/2021 after she presented with generalized weakness, urinary incontinence, back pain and was found to be in A fib with RVR and had evolving late acute R frontal ischemic infarct on head CT. On neuro exam, she had L arm drift, mild L nasolabial fold flattening and slight decreased sensation to LT on L side. MRI revealed multiple R sided diffusion restricting lesions of R frontal lobe, R parietal lobe and R basal ganglia with petechial hemorrhage. Pt had persistent headache and repeat CT showed hemorrhagic conversion of her R frontal stroke. Prior to onset pt was functionally independent and ambulated independently w/o use of AD. She has past medical Hx of HTN, suspected A fib, carotid stenosis s/p R CEA, and COPD. Per clinical, pt was noted walking with PT, facial droop still noted, however weakness is improving. Due to the decline in the patients condition she is not currently safe to remain in her current living arrangement due to reductions in balance, strength, endurance, and an inability to independently perform the necessary activities of daily living and self-care required. Pt is at risk for skin breakdown, DVT, pain, falls, stroke and respiratory and cardiac failure. Our goal is for the patient to become stronger in order for her to safely return home and live independently. Patient would most directly benefit from aggressive 3 hours of daily therapy split between physical therapy and occupational therapy as well as speech therapy if warranted in the acute inpatient rehab setting.She is medically stable with relatively stable labs. She will require 24 hour nursing, doctor supervision SPT) due to her current medical conditions and PHM. The patient is reasonably expected to participate in 3 hours of therapy a day/15 hours per week and receive care with an intensive interdisciplinary approach. COVID-19 screening performed; Patient denies new onset of fever, cough, difficulty breathing, sore throat, body aches and non-allergy nasal congestion in the past 24 hours. Patient denies travel outside of [place] in the past 14 days. Patient denies any contact with someone who has a confirmed diagnosis of or is under investigation for COVID-19 in the past 14 days. MEDICATION ALLERGIES: No Known Drug Allergies (NKDA) ENVIRONMENTAL ALLERGIES: - Substance Allergies None Known - Other Allergies None Known PAST MEDICAL HISTORY: Afib HTN COPD carotid stenosis STROKE (HCC) PAST SURGICAL HISTORY: carotid stent HYSTERECTOMY Appendectomy SOCIAL HISTORY: - Home Living Alone REVIEW OF SYSTEMS: - Gen No Chills Fatigue No Fever - Eyes No Double Vision No itchiness - ENMT No Difficulty Swallowing - CVS No Chest Discomfort No Chest Pain Fatigue No Weight Gain - Resp No Cough No Shortness of Breath - GI Continent No Abdominal Pain No Constipation No Diarrhea - Continent No Kidney Pain No Painful Urination No Urinary Urgency - MSK No Joint Pain No Muscle Cramps Stiffness - Skin No Itching No Rash No Suspicious Lesions - Neuro Coordination Difficulty No Difficulty with Concentration No Memory Loss No Seizures Weakness - Psych No Anxiety No Depression No HIV Exposure No Persistent Infections No Seasonal Allergies - Endo No Cold/Heat Intolerance No Excessive Hunger No Excessive Thirst No Excessive Urination PHYSICAL EXAM - Gen Alert and awake Lying in bed No apparent distress Oriented to: person, time, and place - Skin No skin breakdown. Normacephalic - Eyes No abnormalities - ENMT No abnormalities - Neck No abnormalities - CVS RRR - Chest No abnormalities - Resp No wheezing - Abd Soft - GI + bowel sounds No abnormalities - No abnormalities - Ext No significant edema - MSK 4+/5 weakness in left upper and lower extremity - Neuro 4/5 strength left upper and lower extremities. - Psych No abnormalities VITAL SIGNS Temperature: 97.8 F SBP/DBP: 115/73 Pulse: 79 Resp: 16 NURSING: - Shower allowing shower - Bladder care per protocol - Skin care per protocol PRECAUTIONS: - Fall Precaution Bed alarm TABS alarm Wheel chair alarm - DVT Risk due to restricted mobility and age - Cardiac Precaution Monitor blood pressure, heart rate, lower extremity edema, notify MD for shortness of breath or chest pain Monitor patient for excessive elevation of heart rate and blood pressure during therapy - Skin Breakdown Risk due to restricted mobility and age - Incontinence Bladder Incontinence ACTIVITIES OOB only with supervision QI SCORES: - Self-Care A. Eating 03-Partial/moderate assistance B. Oral hygiene 03-Partial/moderate assistance C. Toileting hygiene 03-Partial/moderate assistance E. Shower/bathe self 04-Supervision or touching assistance F. Upper body dressing 03-Partial/moderate assistance G. Lower body dressing 03-Partial/moderate assistance H. Putting on/taking off footwear 88-Not attempted due to medical condition or safety concerns - Mobility A. Roll left and right 04-Supervision or touching assistance B. Sit to lying 03-Partial/moderate assistance C. Lying to sitting on side of bed 03-Partial/moderate assistance D. Sit to stand 03-Partial/moderate assistance E. Chair/nmc-vp-pvibo transfer 03-Partial/moderate assistance F. Toilet transfer 03-Partial/moderate assistance G. Car transfer 88-Not attempted due to medical condition or safety concerns I. Walk 10 feet 03-Partial/moderate assistance J. Walk 50 feet with two turns 88-Not attempted due to medical condition or safety concerns K. Walk 150 feet 88-Not attempted due to medical condition or safety concerns L. Walking 10 feet on uneven surfaces 88-Not attempted due to medical condition or safety concerns M. 1 step (curb) 88-Not attempted due to medical condition or safety concerns N. 4 steps 88-Not attempted due to medical condition or safety concerns O. 12 steps 88-Not attempted due to medical condition or safety concerns P. Picking up object 88-Not attempted due to medical condition or safety concerns R. Wheel 50 feet with two turns 88-Not attempted due to medical condition or safety concerns S. Wheel 150 feet 88-Not attempted due to medical condition or safety concerns - Bladder and Bowel Bladder continence Bowel continence - Endurance Fair - Balance Fair - Safety Awareness Fair CURRENT FUNC. 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 presented to [facility] with sudden onset of left- side weakness.Pt. is a 85 yo female of unknown race.Pre-morbidly, Pt. was independent/mod-I in Locomo tion, Endurance, and Self-Care; and she had good Safety Awareness, Transfers Control, and Balance.Cur rently, she has deficits of Locomotion, Safety Awareness, Transfers Control, Self-Care, and Endurance .Pt. is now referred to [facility] for acute in-patient rehabilitation in [facility] r to maximize patient's functional independence in activities of daily living, strength, ROM, and mob ility.- Rehab Goal Patient has realistic goal of being discharged at assistance level 7-Ind to reside at Home with Pt s elf. Mrs. Al is 85 yo female who was admitted to ICU on 09/10/2021 after she presented with generalized weakness, urinary incontinence, back pain and was found to be in A fib with RVR and had evolving late acute R frontal ischemic infarct on head CT. On neuro exam, she had L arm drift, mild L nasolabial fold flattening and slight decreased sensation to LT on L side. MRI revealed multiple R sided diffusion restricting lesions of R frontal lobe, R parietal lobe and R basal ganglia with petechial hemorrhage. Pt had persistent headache and repeat CT showed hemorrhagic conversion of her R frontal stroke. Prior to onset pt was functionally independent and ambulated independently w/o use of AD. She has past medical Hx of HTN, suspected A fib, carotid stenosis s/p R CEA, and COPD. Per clinical, pt was noted walking with PT, facial droop still noted, however weakness is improving. Due to the decline in the patients condition she is not currently safe to remain in her current living arrangement due to reductions in balance, strength, endurance, and an inability to independently perform the necessary activities of daily living and self-care required. Pt is at risk for skin breakdown, DVT, pain, falls, stroke and respiratory and cardiac failure. Our goal is for the patient to become stronger in order for her to safely return home and live independently. Patient would most directly benefit from aggressive 3 hours of daily therapy split between physical therapy and occupational therapy as well as speech therapy if warranted in the acute inpatient rehab setting.She is medically stable with relatively stable labs. She will require 24 hour nursing, doctor supervision SPT) due to her current medical conditions and PHM. The patient is reasonably expected to participate in 3 hours of therapy a day/15 hours per week and receive care with an intensive interdisciplinary approach. COVID-19 screening performed; Patient denies new onset of fever, cough, difficulty breathing, sore throat, body aches and non-allergy nasal congestion in the past 24 hours. Patient denies travel outside of [place] in the past 14 days. Patient denies any contact with someone who has a confirmed diagnosis of or is under investigation for COVID-19 in the past 14 days.COVID-19 test today is negative.REHAB PLAN: for Dementia, TBI, Stroke, or others - Physical Therapy Gait dysfunction - to improve, our physical therapists will perform initial evaluation of pt's status upon admission and devise an individualized program for Gait Training, and Wheel Chair mobility Inability to transfer - to improve, our physical therapists will perform initial evaluation of pt's s tatus upon admission and devise an individualized program for Bed mobility Need for home safety evaluation - to improve, our physical therapists will perform initial evaluation of pt's status upon admission and devise an individualized program for Home Evaluation Need in caregiver upon discharge - to improve, our physical therapists will perform initial evaluatio n of pt's status upon admission and devise an individualized program for Caregiver Training Edema - to improve, our physical therapists will perform initial evaluation of pt's status upon admi ssion and devise an individualized program for Elevation Training, and Lymphedema Therapy New precaution - to improve, our physical therapists will perform initial evaluation of pt's status u g[place] admission and devise an individualized program for Patient precaution education Poor endurance - to improve, our physical therapists will perform initial evaluation of pt's status u g[place] admission and devise an individualized program for Endurance Training Weakness - to improve, our physical therapists will perform initial evaluation of pt's status upon ad mission and devise an individualized program for Aquatic Therapy, Neuromuscular Reeducation, and Stre ngthening Achieving independence - to improve, our physical therapists will perform initial evaluation of pt's status upon admission and devise an individualized program for Community Reintegration Activities - Occupational Therapy ADL deficits - to improve, our occupation therapists will perform initial evaluation of pt's status u gordo admission and devise an individualized program for Bathing, Bed mobility, Community Reintegration , Cooking, Dressing, Eating, Fine Motor Skills, Grooming, Homemaking, Kitchen Mobility, Laundry, Nathalia ent Education, Safety Awareness, Splinting - Positioning, Transfers(Toilet, Tub, Shower), and Wheel C hair Management Need for child care attendant school - to improve, our occupation therapists will perform initial evaluation of pt's s tatus upon admission and devise an individualized program for Caregiver Training Weakness - to improve, our occupation therapists will perform initial evaluation of pt's status upon admission and devise an individualized program for Aquatic Therapy, Balance, Endurance, UE ROM, and U E strengthening MEDICAL PLAN: - Diet Type Start Regular - Diet - Liquid Texture Start Regular - Tube Feed Start N/A - Incontinence Bladder Incontinence - Bladder care per protocol - DVT Risk due to restricted mobility and age - Skin Breakdown Risk due to restricted mobility and age - Cardiac Precaution Monitor blood pressure, heart rate, lower extremity edema, notify MD for shortness of breath or ches t pain Monitor patient for excessive elevation of heart rate and blood pressure during therapy - Weight Bearing Precaution WBAT left LE - Fall Precaution Bed alarm TABS alarm Wheel chair alarm - Skin care per protocol - Other See attached MAR (Medication Administration Record) - Diet - Solid Texture Regular - Shower shower DISCHARGE PLAN: - Estimated Length of Stay (days) 17. - Consensus on plan Discharge plan has been discussed with primary caregiver. Patient/Family is in agreement with the stan n. Primary caregiver is in agreement with the plan. - Patient/Family Goals Return home independently. - Planned Living Setting Upon Discharge Home, to live alone. Transitional Living. Primary caregiver: Pt self. SIGNATURE PANEL: (CDT)
--- NOTE | 2021-09-17 17:37 | PAPE ---
POST ADMISSION PHYSICIAN EVALUATION PATIENT: [facility] MR# [id number] REFERRING DOCTOR SARAH CALLAHAN EVALUATION DATE AND TIME 09/17/2021 17:36 (CDT) NAME JAIMIE TERRELL DATE OF 1935 AGE 85 PHONE N# [id number] GENDER female EVALUATING PHYSICIAN Dr. Odin Morgan M.D. 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 PATIENT NEEDS CLOSE MEDICAL SUPERVISION BY A REHABILITATION PHYSICIAN FOR: Coordination of Treatment Team Bowel and Bladder Management Medical and Co-Morbidity Management Pain Management PATIENT REQUIRES 24X7 REHAB NURSING FOR MEDICAL AND FUNCTIONAL MGT. OF THE FOLLOWING DEFICITS: Patient requires 24x7 Rehabilitation Nursing for: Pain Issues, Identifying and preventing risk factor s, Monitoring and reporting current medical conditions, Assisting with ambulation and transfer, Chandana ting with all ADL-s, Teaching patients about disease process and medications, Family teaching, Provid ing safe environment, Bowel and Bladder Issues, Skin Integrity, and Medication Management PATIENT REQUIRES INTENSIVE, COORDINATED INTERDISCIPLINARY APPROACH TO REHAB: Patient needs Dietary and Nutrition Services for: Adequate Nutrition, Nutritional Supplements, and Nu tritional Education Patient needs Board Of Education Secretary and/or Case Management for: Discharge Planning, Arranging Home Equipmen t or Services, and Family Interventions LIST OF IDENTIFIED AND POTENTIAL PROBLEMS: Alteration in leisure activities Bladder, Incontinence Bowel, Incontinence Falls, Actual or Potential Infection, Actual or Potential Mobility Impaired Pain, Alteration in Comfort Self Care Deficit Skin Integrity, Actual or Potential Urinary Tract Infection (UTI), Actual or Potential RISK FOR COMPLICATIONS - DVT Active and Passive ROM exercises. Assist patient with frequent position changes. Elevate BLE. - Stroke Monitor and maintain patient pain level. Monitor patient blood pressure. - Falls Maintain call light within patient reach for easy access to nursing assistance. Provide assistance ge tting out of bed and with ambulation. Provide assistive devices. - Pain Assist patient with frequent position changes at least every 2 hours. Administer prescribed pain medi cation as needed. - Bleeding Monitor pt for injury. Maintain pt safety. - Seizures Monitor for headache. Monitor and maintain pt BP. - Skin Breakdown Encourage ambulation as tolerated. Repositioning q 2 hours. Use of pillows or foam wedges while in be d. INTERVENTIONS - Stroke Assess pt neuro status regularly. Provide aggressive PT, OT and Speech to improve pt level of functio n. - Afib Vitals will be monitored regularly and medicationsadministered as indicated by Physician. Monitor pt cardiac and respiratory status regularly. - Hypertension Monitor patient B/P and treat with prescribed medications. Increase physical activity. Implement heal thy diet. - COPD Monitor for cognitive changes. Monitor O2 sats via Pulse Ox and administer supplemental oxygen as pre scribed. PATIENT COULD BE AT RISK FOR COMPLICATIONS FROM ADVERSE MEDICAL CONDITIONS DUE TO HIS/HER COMORBIDITI ES AND THE RIGORS OF THE INTENSIVE REHABILLITATION PROGRAM. METHODS OR INTERVENTIONS TO AVOID COMPLIC ATIONS INCLUDE: - Bleeding Stroke patients assessed for lethargy or change in status. - Infection Clinical staff to assess and manage the signs and symptoms of infection including fever, redness, war mth, etc. - Urinary Tract Infection - Aspiration Clinical staff will assess and manage coughing, drooling, congestion. - Falls Patient will be evaluated for Fall Precautions and will be placed on Fall Precautions as indicated pe r protocol. - Skin Breakdown Nursing will assess skin daily using assessment tool and will place on Skin Breakdown Precautions as indicated per protocol. - Pain Clinical staff may employ non-medication methods such as massage, distraction, decrease stimulus, etc . as needed. Clinical staff will assess patient's pain level every shift per protocol to assess and e nsure pain management effectiveness. Medications will be given and the pain level re-assessed. PRELIMINARY PLAN OF CARE: - Physical Therapy Patient needs Physical Therapy for a daily minimum of 1.5 hours at least 5 out of 7 days, to improve: Mobility, Strengthening, Transfers, Stretching, ROM, Endurance, Ability to manage stairs, Gait, and Balance. - Speech Therapy Patient needs Speech Therapy for a daily minimum of 0.5 hours at least 5 out of 7 days, to improve: S wallowing, Cognition, Language Skills, and Compensatory Strategies. - Rehabilitation Nursing Patient requires 24x7 Rehabilitation Nursing for: Pain Issues, Identifying and preventing risk factor s, Monitoring and reporting current medical conditions, Assisting with ambulation and transfer, Chandana ting with all ADL-s, Teaching patients about disease process and medications, Family teaching, Provid ing safe environment, Bowel and Bladder Issues, Skin Integrity, and Medication Management. Patient needs Board Of Education Secretary and/or Case Management for: Discharge Planning, Arranging Home Equipmen t or Services, and Family Interventions. - Dietary and Nutrition Services Patient needs Dietary and Nutrition Services for: Adequate Nutrition, Nutritional Supplements, and Nu tritional Education. - Occupational Therapy Patient needs Occupational Therapy for a daily minimum of 1.5 hours at least 5 out of 7 days, to impr ove Activities of Daily Living, including: Eating, Grooming, Bathing, Dressing, Toileting, Toilet Tra nsfers, Community Reintegration, Higher functional activities, Adaptive Equipment, Splinting, Househo ld Tasks, and Other activities as determined. QI SCORES: - Self-Care A. Eating 03-Partial/moderate assistance B. Oral hygiene 03-Partial/moderate assistance C. Toileting hygiene 03-Partial/moderate assistance E. Shower/bathe self 04-Supervision or touching assistance F. Upper body dressing 03-Partial/moderate assistance G. Lower body dressing 03-Partial/moderate assistance H. Putting on/taking off footwear 88-Not attempted due to medical condition or safety concerns - Mobility A. Roll left and right 04-Supervision or touching assistance B. Sit to lying 03-Partial/moderate assistance C. Lying to sitting on side of bed 03-Partial/moderate assistance D. Sit to stand 03-Partial/moderate assistance E. Chair/eoj-gq-sbdgp transfer 03-Partial/moderate assistance F. Toilet transfer 03-Partial/moderate assistance G. Car transfer 88-Not attempted due to medical condition or safety concerns I. Walk 10 feet 03-Partial/moderate assistance J. Walk 50 feet with two turns 88-Not attempted due to medical condition or safety concerns K. Walk 150 feet 88-Not attempted due to medical condition or safety concerns L. Walking 10 feet on uneven surfaces 88-Not attempted due to medical condition or safety concerns M. 1 step (curb) 88-Not attempted due to medical condition or safety concerns N. 4 steps 88-Not attempted due to medical condition or safety concerns O. 12 steps 88-Not attempted due to medical condition or safety concerns P. Picking up object 88-Not attempted due to medical condition or safety concerns R. Wheel 50 feet with two turns 88-Not attempted due to medical condition or safety concerns S. Wheel 150 feet 88-Not attempted due to medical condition or safety concerns - Bladder and Bowel Bladder continence Bowel continence - Endurance Fair - Balance Fair - Safety Awareness Fair POTENTIAL FUNCTIONAL GOALS FOR PATIENT TO ACHIEVE BY DISCHARGE: - Safety Precaution Patient will remain free from falls or injury at time of discharge. - Bed Mobility Patient will perform bed mobility at 4-Kassie level of assistance. - Transfers Patient will complete transfers from bed to chair at 4-Kassie level of assistance. - Mobility Patient will ambulate 150 ft with 4-Kassie level of assistance with RW. PATIENT REHAB POTENTIAL Virgil TERRELL is able and expected to receive 3 hours of individualized therapy daily on at least 5 of dagoberto ry 7 days Virgil DOWDs prognosis for significant practical improvement within a reasonable period of time appears Good Expected level of measurable improvement will be of a practical value to Virgil TERRELL's functional capaci ty or adaptations to impairments Has a viable Discharge Plan Medically appropriate; condition is sufficiently stable to participate in intensive rehab program DISCHARGE PLAN: - Estimated Length of Stay (days) 17. - Consensus on plan Discharge plan has been discussed with primary caregiver. Patient/Family is in agreement with the stan n. Primary caregiver is in agreement with the plan. - Patient/Family Goals Return home independently. - Planned Living Setting Upon Discharge Home, to live alone. Transitional Living. Primary caregiver: Pt self. CONCLUSION ON REHABILITATION NECESSITY: I have evaluated patient's pre-admission functional status and, comparing it to the patient's post-ad mission functional status now, I conclude that the pre-admission assessment was accurate. Patient's c ondition on admission supports the medical necessity of admission to IRF. It is safe to proceed with patient's therapy program. SIGNATURE PANEL: (CDT)
[2021-09-17] MEDS: CEFDINIR 300 MG CAP PO SCH (19:52)
[2021-09-17] MEDS: ATORVASTATIN 40 MG TAB PO SCH (19:53)
[2021-09-17] MEDS: MELATONIN 3 MG TABLET PO PRN (19:54)
[2021-09-17] MEDS: METOPROLOL TAR 50 MG TAB PO SCH (19:54)
[2021-09-17] MEDS ORDERED: BUDESONIDE FORMOTEROL IH SCH (20:00)
[2021-09-17] MEDS ORDERED: APIXABAN 5 MG TABLET PO SCH (20:00)
[2021-09-17] MEDS: BUDESONIDE 0.5 MG/2 ML NEB NEB SCH (20:45)
[2021-09-17] MEDS: IPRATROPIUM BROM 0.5MG/2.5ML NEB PRN (20:47)
[2021-09-18 04:50] LABS: Absolute Lymphocytes (CBC) 1.7 K/uL (0.7-4.9); Hematocrit 40.4 % (36.0-45.0); Lymphocytes % 23.6 % (15.3-44.8); MPV 7.5 fL (7.6-11.3)
[2021-09-18 05:13] LABS: Prealbumin 15.4 mg/dL (20-40)
[2021-09-18] MEDS: DIGOXIN 0.125 MG TABLET PO SCH (07:51)
[2021-09-18] MEDS: CEFDINIR 300 MG CAP PO SCH ×2 (07:52→19:49)
[2021-09-18] MEDS: AMLODIPINE 5 MG TAB PO SCH (07:52)
[2021-09-18] MEDS: METOPROLOL TAR 50 MG TAB PO SCH ×2 (07:52→19:51)
[2021-09-18] MEDS ORDERED: DIGOXIN 0.125 MG TABLET PO SCH (08:00)
[2021-09-18] MEDS: BUDESONIDE 0.5 MG/2 ML NEB NEB SCH ×2 (09:00→20:00)
[2021-09-18] MEDS: FLUTICASONE NASAL SPRAY NAS SCH (10:31)
--- NOTE | 2021-09-18 18:25 | R.PN ---
PROGRESS NOTES ENCOUNTER DATE AND TIME: 09/18/2021 18:17 (CDT) NAME JAIMIE TERRELL DATE OF : 1935 DATE OF ADMISSION: 09/17/2021 17:28 (CDT) Acute multifocal R MCA territory infarcts with hemorrhagic conversionCHIEF COMPLAINT: Rt MCA stroke, left sided weakness SUBJECTIVE: Pt denied any Shortness of Breath. Pt denied any depression. CBC with differential is normal, prealbumin 15.4, covid-19 is negative. Therapeutic exercises done with supervision. Bed mobility done with contact guard assistance. Ambulat ed 410' with contact guard assistance using a rolling walker. VITAL SIGNS Temperature: 97.5 F SBP/DBP: 128/70 Pulse: 75 Resp: 16 MEDICATION ALLERGIES: No Known Drug Allergies (NKDA) ENVIRONMENTAL ALLERGIES: - Substance Allergies None Known - Other Allergies None Known NURSING: - Shower allowing shower - Bladder care per protocol - Skin care per protocol PRECAUTIONS: - Fall Precaution Bed alarm TABS alarm Wheel chair alarm - DVT Risk due to restricted mobility and age - Cardiac Precaution Monitor blood pressure, heart rate, lower extremity edema, notify MD for shortness of breath or chest pain Monitor patient for excessive elevation of heart rate and blood pressure during therapy - Skin Breakdown Risk due to restricted mobility and age - Incontinence Bladder Incontinence ACTIVITIES OOB only with supervision THERAPIES: - Dietary and Nutrition Adequate Nutrition. Nutritional Education. Nutritional Supplements. Evaluate and Treat. - Occupational Therapy Cognitive Retraining. Patient needs Occupational Therapy for a daily minimum of 1.5 hours at least 5 out of 7 days, to improve Activities of Daily Living, including: Eating, Grooming, Bathing, Dressing, Toileting, Toilet Transfers, Community Reintegration, Higher functional activities, Adaptive Equipme nt, Splinting, Household Tasks, and Other activities as determined. Visual Perceptual Training. Evalu ate and Treat. Household Tasks. Patient/Family Education. ADL Training. Safety Awareness. - Speech Therapy Cognitive Training. Expressive Language Skills. Memory Strategies. Patient needs Speech Therapy for a daily minimum of 1.5 hours at least 5 out of 7 days, to improve: Swallowing, Cognition, Language Ski lls, and Compensatory Strategies. Receptive Language Skills. Speech Intelligibility Training. Evaluat e and Treat. - Physical Therapy Patient needs Physical Therapy for a daily minimum of 1.5 hours at least 5 out of 7 days, to improve: Mobility, Strengthening, Transfers, Stretching, ROM, Endurance, Ability to manage stairs, Gait, and Balance. Balance Training. Evaluate and Treat. Gait Training. Safety Awareness. Transfer Training. LE Strengthening. PHYSICAL EXAM - Gen Alert and awake Lying in bed No apparent distress Oriented to: person, time, and place - Skin No skin breakdown. Normacephalic - Eyes No abnormalities - ENMT No abnormalities - Neck No abnormalities - CVS RRR - Chest No abnormalities - Resp No wheezing - Abd Soft - GI + bowel sounds No abnormalities - No abnormalities - Ext No significant edema - MSK 4+/5 weakness in left upper and lower extremity - Neuro 4/5 strength left upper and lower extremities. - Psych No abnormalities ASSESSMENT: On 09/10/2021 she was admitted to [facility] and underwent emergency surgery for Acut e multifocal R MCA territory infarcts with hemorrhagic conversion (Stroke(Left Body (Right Brain))) SARAH Morley.On 09/10/2021 Pt. presented to [facility] with sudden onset of left- side weakness.Pt. is a 85 yo female of unknown race.Pre-morbidly, Pt. was independent/mod-I in Locomo tion, Endurance, and Self-Care; and she had good Safety Awareness, Transfers Control, and Balance.Cur rently, she has deficits of Locomotion, Safety Awareness, Transfers Control, Self-Care, and Endurance .Pt. is now referred to [facility] for acute in-patient rehabilitation in [facility] to maximize patient's functional independence in activities of daily living, strength, ROM, and mob ility.- Rehab Goal Patient has realistic goal of being discharged at assistance level 7-Ind to reside at Home with Pt s elf. COVID-19 test today is negative.MDM/PLAN: - Physical Therapy Gait dysfunction - to improve, our physical therapists will perform initial evaluation of pt's statu s upon admission and devise an individualized program for Gait Training, and Wheel Chair mobility Inability to transfer - to improve, our physical therapists will perform initial evaluation of pt's status upon admission and devise an individualized program for Bed mobility Need for home safety evaluation - to improve, our physical therapists will perform initial evaluatio n of pt's status upon admission and devise an individualized program for Home Evaluation Need in caregiver upon discharge - to improve, our physical therapists will perform initial evaluati on of pt's status upon admission and devise an individualized program for Caregiver Training Edema - to improve, our physical therapists will perform initial evaluation of pt's status upon admis isabela and devise an individualized program for Elevation Training, and Lymphedema Therapy New precaution - to improve, our physical therapists will perform initial evaluation of pt's status upon admission and devise an individualized program for Patient precaution education Poor endurance - to improve, our physical therapists will perform initial evaluation of pt's status upon admission and devise an individualized program for Endurance Training Weakness - to improve, our physical therapists will perform initial evaluation of pt's status upon a dmission and devise an individualized program for Aquatic Therapy, Neuromuscular Reeducation, and Str engthening Achieving independence - to improve, our physical therapists will perform initial evaluation of pt's status upon admission and devise an individualized program for Community Reintegration Activities - Occupational Therapy ADL deficits - to improve, our occupation therapists will perform initial evaluation of pt's status upon admission and devise an individualized program for Bathing, Bed mobility, Community Reintegratio n, Cooking, Dressing, Eating, Fine Motor Skills, Grooming, Homemaking, Kitchen Mobility, Laundry, Pat ient Education, Safety Awareness, Splinting - Positioning, Transfers(Toilet, Tub, Shower), and Wheel Chair Management Need for health care coach - to improve, our occupation therapists will perform initial evaluation of pt's status upon admission and devise an individualized program for Caregiver Training Weakness - to improve, our occupation therapists will perform initial evaluation of pt's status upon admission and devise an individualized program for Aquatic Therapy, Balance, Endurance, UE ROM, and UE strengthening - Other See attached MAR (Medication Administration Record) - Diet Type Continue Regular - Diet - Liquid Texture Continue Regular - Tube Feed Continue N/A - Incontinence Bladder Incontinence - Bladder care per protocol - DVT Risk due to restricted mobility and age - Skin Breakdown Risk due to restricted mobility and age - Cardiac Precaution Monitor blood pressure, heart rate, lower extremity edema, notify MD for shortness of breath or chest pain Monitor patient for excessive elevation of heart rate and blood pressure during therapy - Weight Bearing Precaution WBAT left LE - Fall Precaution Bed alarm TABS alarm Wheel chair alarm - Skin care per protocol - Diet - Solid Texture Continue Regular - Shower allowing shower for Dementia, TBI, Stroke, or others FUNCTIONAL STATUS: UPDATED AT WEEKLY TEAM CONFERENCE - Bladder Same accident frequency: 7-Ind - No accidents in the past 7 days - Bowel Same accident frequency: 7-Ind - No accidents in the past 7 days - Walking Same score based on distance walked: 0(N/A) Same score based on distance walked: 1(<=50ft) - Wheelchair Same score based on distance traveled: 0(N/A) FUNCTIONAL STATUS: - Self-Care A. Eating Ind B. Grooming Kassie C. Bathing modA D. Dressing - Upper Kassie E. Dressing - Lower modA F. Toileting Kassie - Sphincter Control G. Bladder control Carroll H. Bowel control Carroll - Transfers Control I. Bed/Chair/Wheelchair Kassie J. Toilet Kassie K. Tub/Shower modA - Locomotion L. Walk/Wheelchair (B) Kassei M. Stairs Dep - Communication N. Comprehension (B) sup O. Expression (B) sup - Social Cognition P. Social Interaction Carroll Q. Problem Solving sup R. Memory sup - Endurance Fair - Balance Fair - Safety Awareness Fair QI SCORES: - Self-Care A. Eating 03-Partial/moderate assistance B. Oral hygiene 03-Partial/moderate assistance C. Toileting hygiene 03-Partial/moderate assistance E. Shower/bathe self 04-Supervision or touching assistance F. Upper body dressing 03-Partial/moderate assistance G. Lower body dressing 03-Partial/moderate assistance H. Putting on/taking off footwear 88-Not attempted due to medical condition or safety concerns - Mobility A. Roll left and right 04-Supervision or touching assistance B. Sit to lying 03-Partial/moderate assistance C. Lying to sitting on side of bed 03-Partial/moderate assistance D. Sit to stand 03-Partial/moderate assistance E. Chair/dzt-ra-wexyq transfer 03-Partial/moderate assistance F. Toilet transfer 03-Partial/moderate assistance G. Car transfer 88-Not attempted due to medical condition or safety concerns I. Walk 10 feet 03-Partial/moderate assistance J. Walk 50 feet with two turns 88-Not attempted due to medical condition or safety concerns K. Walk 150 feet 88-Not attempted due to medical condition or safety concerns L. Walking 10 feet on uneven surfaces 88-Not attempted due to medical condition or safety concerns M. 1 step (curb) 88-Not attempted due to medical condition or safety concerns N. 4 steps 88-Not attempted due to medical condition or safety concerns O. 12 steps 88-Not attempted due to medical condition or safety concerns P. Picking up object 88-Not attempted due to medical condition or safety concerns R. Wheel 50 feet with two turns 88-Not attempted due to medical condition or safety concerns S. Wheel 150 feet 88-Not attempted due to medical condition or safety concerns - Bladder and Bowel Bladder continence Bowel continence - Endurance Fair - Balance Fair - Safety Awareness Fair CURRENT [facility]. DEFICITS: Self-Care, Mobility, Endurance, Balance, and Safety Awareness SIGNATURE PANEL: (CDT)
[2021-09-18] MEDS: ACETAMINOPHEN 500 MG TAB PO PRN (19:49)
[2021-09-18] MEDS: ATORVASTATIN 40 MG TAB PO SCH (19:49)
[2021-09-18] MEDS: MELATONIN 3 MG TABLET PO PRN (19:51)
[2021-09-19] MEDS: DIGOXIN 0.125 MG TABLET PO SCH (07:54)
[2021-09-19] MEDS: FLUTICASONE NASAL SPRAY NAS SCH (07:54)
[2021-09-19] MEDS: METOPROLOL TAR 50 MG TAB PO SCH ×2 (07:55→21:30)
[2021-09-19] MEDS: CEFDINIR 300 MG CAP PO SCH ×2 (07:55→21:29)
[2021-09-19] MEDS: AMLODIPINE 5 MG TAB PO SCH (07:55)
[2021-09-19] MEDS ORDERED: FLUTICASONE 50MCG NASAL SPRAY NAS SCH (08:00)
--- NOTE | 2021-09-19 09:42 | P.RH.PN ---
Estimated Length of Stay: 11 Expected Discharge Date: 09/28/21 Family Support: Yes Rater Associate Goal: Mobility, Transfers, Self Care Vital Signs: Last Vital Signs Temp 96.8 F 09/19/21 07:52 Pulse 69 09/19/21 07:55 Resp 18 09/19/21 07:52 BP 126/80 09/19/21 07:55 Pulse Ox 98 09/19/21 07:52 Laboratory: Laboratory Last Values WBC 7.2 K/uL (4.3-10.9) 09/18/21 04:09 RBC 4.30 M/uL (3.86-4.86) 09/18/21 04:09 Hgb 14.1 g/dL (12.0-15.0) 09/18/21 04:09 Hct 40.4 % (36.0-45.0) D 09/18/21 04:09 MCV 94.1 fL (80-100) 09/18/21 04:09 MCH 32.8 pg (27.0-35.0) 09/18/21 04:09 MCHC 34.8 g/dL (32.0-36.0) 09/18/21 04:09 RDW 12.8 % (12.1-15.2) 09/18/21 04:09 Plt Count 287 K/uL (152-406) 09/18/21 04:09 MPV 7.5 fL (7.6-11.3) L 09/18/21 04:09 Neutrophils % 60.0 % (41.7-73.7) 09/18/21 04:09 Lymphocytes % 23.6 % (15.3-44.8) 09/18/21 04:09 Monocytes % 10.6 % (3.3-12.3) 09/18/21 04:09 Eosinophils % 5.4 % (0-4.4) H 09/18/21 04:09 Basophils % 0.4 % (0-1.3) 09/18/21 04:09 Absolute Neutrophils 4.3 K/uL (1.8-8.0) 09/18/21 04:09 Absolute Lymphocytes 1.7 K/uL (0.7-4.9) 09/18/21 04:09 Absolute Monocytes 0.8 K/uL (0.1-1.3) 09/18/21 04:09 Absolute Eosinophils 0.4 K/uL (0-0.5) 09/18/21 04:09 Absolute Basophils 0.0 K/uL (0-0.5) 09/18/21 04:09 Sodium 139 mmol/L (136-145) 09/18/21 04:09 Potassium 4.0 mmol/L (3.5-5.1) 09/18/21 04:09 Chloride 106 mmol/L (98-107) 09/18/21 04:09 Carbon Dioxide 28 mmol/L (21-32) 09/18/21 04:09 Anion Gap 9.0 mEq/L (5.0-15.0) 09/18/21 04:09 BUN 19 mg/dL (7-18) H 09/18/21 04:09 Creatinine 0.84 mg/dL (0.55-1.3) 09/18/21 04:09 Est GFR (CKD-EPI) 68 ml/min (=/>90) L 09/18/21 04:09 Glucose 108 mg/dL (74-106) H 09/18/21 04:09 Calcium 8.7 mg/dL (8.5-10.1) 09/18/21 04:09 Magnesium 2.0 mg/dL (1.8-2.4) D 09/18/21 04:09 NT-Pro-B Natriuret Pep 838 pg/mL (<450) H 09/18/21 04:09 Albumin 3.0 g/dL (3.4-5.0) L 09/18/21 04:09 Prealbumin 15.4 mg/dL (20-40) L 09/18/21 04:09 SARS-CoV-2 Rap RNA(RT-PCR) Negative (NEGATIVE) 09/17/21 14:25 Weight: 167 lb 6.4 oz Wound Present: No Physician Update: Labs were reviewed. Bed mobility is min assist. Sit to stand CGA, walking 150' CGA, 3 steps with both handrails also CGA. Supervision for ADLs including shower transfers. Max assistance for showers. Poor endurance. Summary: Patient's care plan and terminal block assembler goals have been reviewed and revised as necessary. Please see the Rehabilitation Signature page for all necessary signatures.
[2021-09-19] MEDS: BUDESONIDE 0.5 MG/2 ML NEB NEB SCH ×2 (09:48→21:10)
[2021-09-19] MEDS: ATORVASTATIN 40 MG TAB PO SCH (21:30)
[2021-09-19] MEDS: DOCUSATE NA/SENNA CONC 1 TAB PO PRN (21:32)
[2021-09-19] MEDS: MELATONIN 3 MG TABLET PO PRN (21:32)
[2021-09-20] MEDS: CEFDINIR 300 MG CAP PO SCH ×2 (09:16→20:23)
[2021-09-20] MEDS: METOPROLOL TAR 50 MG TAB PO SCH ×2 (09:16→20:23)
[2021-09-20] MEDS: DIGOXIN 0.125 MG TABLET PO SCH (09:16)
[2021-09-20] MEDS: AMLODIPINE 5 MG TAB PO SCH (09:17)
[2021-09-20] MEDS: APIXABAN 5 MG TABLET PO SCH ×2 (09:17→20:23)
[2021-09-20] MEDS: FLUTICASONE NASAL SPRAY NAS SCH (09:18)
[2021-09-20] MEDS: BUDESONIDE 0.5 MG/2 ML NEB NEB SCH ×2 (12:49→20:15)
[2021-09-20] MEDS: ATORVASTATIN 40 MG TAB PO SCH (20:23)
[2021-09-20] MEDS: MELATONIN 3 MG TABLET PO PRN (20:24)
[2021-09-20] MEDS: DOCUSATE NA/SENNA CONC 1 TAB PO PRN (20:25)
[2021-09-21] MEDS: METOPROLOL TAR 50 MG TAB PO SCH ×2 (08:36→19:27)
[2021-09-21] MEDS: DIGOXIN 0.125 MG TABLET PO SCH (08:36)
[2021-09-21] MEDS: FLUTICASONE NASAL SPRAY NAS SCH (08:36)
[2021-09-21] MEDS: CEFDINIR 300 MG CAP PO SCH ×2 (08:37→19:27)
[2021-09-21] MEDS: APIXABAN 5 MG TABLET PO SCH ×2 (08:37→19:27)
[2021-09-21] MEDS: AMLODIPINE 5 MG TAB PO SCH (08:37)
[2021-09-21] MEDS: ALBUTEROL 2.5 MG/3 ML NEB SOL NEB PRN (08:40)
[2021-09-21] MEDS: BUDESONIDE 0.5 MG/2 ML NEB NEB SCH ×2 (08:40→20:30)
[2021-09-21] MEDS: ACETAMINOPHEN 500 MG TAB PO PRN ×2 (10:05→19:26)
[2021-09-21] MEDS: MELATONIN 3 MG TABLET PO PRN (19:27)
[2021-09-21] MEDS: ATORVASTATIN 40 MG TAB PO SCH (19:27)
[2021-09-22] MEDS: ACETAMINOPHEN 500 MG TAB PO PRN (04:15)
[2021-09-22] MEDS: APIXABAN 5 MG TABLET PO SCH ×2 (07:40→19:41)
[2021-09-22] MEDS: DIGOXIN 0.125 MG TABLET PO SCH (08:16)
[2021-09-22] MEDS: CEFDINIR 300 MG CAP PO SCH ×2 (08:17→19:40)
[2021-09-22] MEDS: METOPROLOL TAR 50 MG TAB PO SCH ×2 (08:18→19:41)
[2021-09-22] MEDS: FLUTICASONE NASAL SPRAY NAS SCH (08:19)
[2021-09-22] MEDS: BUDESONIDE 0.5 MG/2 ML NEB NEB SCH ×2 (09:23→21:05)
[2021-09-22] MEDS: AMLODIPINE 5 MG TAB PO SCH (11:54)
--- NOTE | 2021-09-22 17:40 | R.PN ---
PROGRESS NOTES ENCOUNTER DATE AND TIME: 09/22/2021 10:49 (CDT) NAME JAIMIE TERRELL DATE OF : 1935 DATE OF ADMISSION: 09/17/2021 17:28 (CDT) Acute multifocal R MCA territory infarcts with hemorrhagic conversionCHIEF COMPLAINT: Rt MCA stroke, left sided weakness SUBJECTIVE: Pt denied any Shortness of Breath. Pt denied any depression. CBC with differential is normal, prealbumin 15.4, covid-19 is negative. Ambulated 1000' with contact guard assistance using a rolling walker. VITAL SIGNS Temperature: 97.5 F SBP/DBP: 119/67 Pulse: 68 Resp: 17 MEDICATION ALLERGIES: No Known Drug Allergies (NKDA) ENVIRONMENTAL ALLERGIES: - Substance Allergies None Known - Other Allergies None Known NURSING: - Shower allowing shower - Bladder care per protocol - Skin care per protocol PRECAUTIONS: - Fall Precaution Bed alarm TABS alarm Wheel chair alarm - DVT Risk due to restricted mobility and age - Cardiac Precaution Monitor blood pressure, heart rate, lower extremity edema, notify MD for shortness of breath or chest pain Monitor patient for excessive elevation of heart rate and blood pressure during therapy - Skin Breakdown Risk due to restricted mobility and age - Incontinence Bladder Incontinence ACTIVITIES OOB only with supervision THERAPIES: - Dietary and Nutrition Adequate Nutrition. Nutritional Education. Nutritional Supplements. Evaluate and Treat. - Occupational Therapy Cognitive Retraining. Patient needs Occupational Therapy for a daily minimum of 1.5 hours at least 5 out of 7 days, to improve Activities of Daily Living, including: Eating, Grooming, Bathing, Dressing, Toileting, Toilet Transfers, Community Reintegration, Higher functional activities, Adaptive Equipme nt, Splinting, Household Tasks, and Other activities as determined. Visual Perceptual Training. Evalu ate and Treat. Household Tasks. Patient/Family Education. ADL Training. Safety Awareness. - Speech Therapy Cognitive Training. Expressive Language Skills. Memory Strategies. Patient needs Speech Therapy for a daily minimum of 1.5 hours at least 5 out of 7 days, to improve: Swallowing, Cognition, Language Ski lls, and Compensatory Strategies. Receptive Language Skills. Speech Intelligibility Training. Evaluat e and Treat. - Physical Therapy Patient needs Physical Therapy for a daily minimum of 1.5 hours at least 5 out of 7 days, to improve: Mobility, Strengthening, Transfers, Stretching, ROM, Endurance, Ability to manage stairs, Gait, and Balance. Balance Training. Evaluate and Treat. Gait Training. Safety Awareness. Transfer Training. LE Strengthening. PHYSICAL EXAM - Gen Alert and awake Lying in bed No apparent distress Oriented to: person, time, and place - Skin No skin breakdown. Normacephalic - Eyes No abnormalities - ENMT No abnormalities - Neck No abnormalities - CVS RRR - Chest No abnormalities - Resp No wheezing - Abd Soft - GI + bowel sounds No abnormalities - No abnormalities - Ext No significant edema - MSK 4+/5 weakness in left upper and lower extremity - Neuro 4/5 strength left upper and lower extremities. - Psych No abnormalities ASSESSMENT: On 09/10/2021 she was admitted to [facility] and underwent emergency surgery for Acut e multifocal R MCA territory infarcts with hemorrhagic conversion (Stroke(Left Body (Right Brain))) SARAH Morley.On 09/10/2021 Pt. presented to [facility] with sudden onset of left- side weakness.Pt. is a 85 yo female of unknown race.Pre-morbidly, Pt. was independent/mod-I in Locomo tion, Endurance, and Self-Care; and she had good Safety Awareness, Transfers Control, and Balance.Cur rently, she has deficits of Locomotion, Safety Awareness, Transfers Control, Self-Care, and Endurance .Pt. is now referred to [facility] for acute in-patient rehabilitation in [facility] to maximize patient's functional independence in activities of daily living, strength, ROM, and mob ility.- Rehab Goal Patient has realistic goal of being discharged at assistance level 7-Ind to reside at Home with Pt s elf. COVID-19 test today is negative.MDM/PLAN: - Physical Therapy Gait dysfunction - to improve, our physical therapists will perform initial evaluation of pt's statu s upon admission and devise an individualized program for Gait Training, and Wheel Chair mobility Inability to transfer - to improve, our physical therapists will perform initial evaluation of pt's status upon admission and devise an individualized program for Bed mobility Need for home safety evaluation - to improve, our physical therapists will perform initial evaluatio n of pt's status upon admission and devise an individualized program for Home Evaluation Need in caregiver upon discharge - to improve, our physical therapists will perform initial evaluati on of pt's status upon admission and devise an individualized program for Caregiver Training Edema - to improve, our physical therapists will perform initial evaluation of pt's status upon admi ssion and devise an individualized program for Elevation Training, and Lymphedema Therapy New precaution - to improve, our physical therapists will perform initial evaluation of pt's status upon admission and devise an individualized program for Patient precaution education Poor endurance - to improve, our physical therapists will perform initial evaluation of pt's status upon admission and devise an individualized program for Endurance Training Weakness - to improve, our physical therapists will perform initial evaluation of pt's status upon a dmission and devise an individualized program for Aquatic Therapy, Neuromuscular Reeducation, and Str engthening Achieving independence - to improve, our physical therapists will perform initial evaluation of pt's status upon admission and devise an individualized program for Community Reintegration Activities - Occupational Therapy ADL deficits - to improve, our occupation therapists will perform initial evaluation of pt's status upon admission and devise an individualized program for Bathing, Bed mobility, Community Reintegratio n, Cooking, Dressing, Eating, Fine Motor Skills, Grooming, Homemaking, Kitchen Mobility, Laundry, Pat ient Education, Safety Awareness, Splinting - Positioning, Transfers(Toilet, Tub, Shower), and Wheel Chair Management Need for critical care technician - to improve, our occupation therapists will perform initial evaluation of pt's status upon admission and devise an individualized program for Caregiver Training Weakness - to improve, our occupation therapists will perform initial evaluation of pt's status upon admission and devise an individualized program for Aquatic Therapy, Balance, Endurance, UE ROM, and UE strengthening - Other See attached MAR (Medication Administration Record) - Diet Type Continue Regular - Diet - Liquid Texture Continue Regular - Tube Feed Continue N/A - Incontinence Bladder Incontinence - Bladder care per protocol - DVT Risk due to restricted mobility and age - Skin Breakdown Risk due to restricted mobility and age - Cardiac Precaution Monitor blood pressure, heart rate, lower extremity edema, notify MD for shortness of breath or ches t pain Monitor patient for excessive elevation of heart rate and blood pressure during therapy - Weight Bearing Precaution WBAT left LE - Fall Precaution Bed alarm TABS alarm Wheel chair alarm - Skin care per protocol - Diet - Solid Texture Continue Regular - Shower allowing shower for Dementia, TBI, Stroke, or others FUNCTIONAL STATUS: UPDATED AT WEEKLY TEAM CONFERENCE - Bladder Same accident frequency: 7-Ind - No accidents in the past 7 days - Bowel Same accident frequency: 7-Ind - No accidents in the past 7 days - Walking Same score based on distance walked: 0(N/A) Same score based on distance walked: 1(<=50ft) - Wheelchair Same score based on distance traveled: 0(N/A) FUNCTIONAL STATUS: - Self-Care A. Eating Ind B. Grooming Kassie C. Bathing modA D. Dressing - Upper Kassie E. Dressing - Lower modA F. Toileting Kassie - Sphincter Control G. Bladder control Carroll H. Bowel control Carroll - Transfers Control I. Bed/Chair/Wheelchair Kassie J. Toilet Kassie K. Tub/Shower modA - Locomotion L. Walk/Wheelchair (B) Kassie M. Stairs Dep - Communication N. Comprehension (B) sup O. Expression (B) sup - Social Cognition P. Social Interaction Carroll Q. Problem Solving sup R. Memory sup - Endurance Fair - Balance Fair - Safety Awareness Fair QI SCORES: - Self-Care A. Eating 03-Partial/moderate assistance B. Oral hygiene 03-Partial/moderate assistance C. Toileting hygiene 03-Partial/moderate assistance E. Shower/bathe self 04-Supervision or touching assistance F. Upper body dressing 03-Partial/moderate assistance G. Lower body dressing 03-Partial/moderate assistance H. Putting on/taking off footwear 88-Not attempted due to medical condition or safety concerns - Mobility A. Roll left and right 04-Supervision or touching assistance B. Sit to lying 03-Partial/moderate assistance C. Lying to sitting on side of bed 03-Partial/moderate assistance D. Sit to stand 03-Partial/moderate assistance E. Chair/[id number] transfer 03-Partial/moderate assistance F. Toilet transfer 03-Partial/moderate assistance G. Car transfer 88-Not attempted due to medical condition or safety concerns I. Walk 10 feet 03-Partial/moderate assistance J. Walk 50 feet with two turns 88-Not attempted due to medical condition or safety concerns K. Walk 150 feet 88-Not attempted due to medical condition or safety concerns L. Walking 10 feet on uneven surfaces 88-Not attempted due to medical condition or safety concerns M. 1 step (curb) 88-Not attempted due to medical condition or safety concerns N. 4 steps 88-Not attempted due to medical condition or safety concerns O. 12 steps 88-Not attempted due to medical condition or safety concerns P. Picking up object 88-Not attempted due to medical condition or safety concerns R. Wheel 50 feet with two turns 88-Not attempted due to medical condition or safety concerns S. Wheel 150 feet 88-Not attempted due to medical condition or safety concerns - Bladder and Bowel Bladder continence Bowel continence - Endurance Fair - Balance Fair - Safety Awareness Fair CURRENT [facility]. DEFICITS: Self-Care, Mobility, Endurance, Balance, and Safety Awareness SIGNATURE PANEL: (CDT)
[2021-09-22] MEDS: MELATONIN 3 MG TABLET PO PRN (19:41)
[2021-09-22] MEDS: ATORVASTATIN 40 MG TAB PO SCH (19:41)
[2021-09-23] MEDS: FLUTICASONE NASAL SPRAY NAS SCH (07:38)
[2021-09-23] MEDS: DIGOXIN 0.125 MG TABLET PO SCH (07:39)
[2021-09-23] MEDS: APIXABAN 5 MG TABLET PO SCH ×2 (07:39→19:36)
[2021-09-23] MEDS: CEFDINIR 300 MG CAP PO SCH ×2 (07:39→19:36)
[2021-09-23] MEDS: METOPROLOL TAR 50 MG TAB PO SCH ×2 (07:40→19:43)
[2021-09-23] MEDS: AMLODIPINE 5 MG TAB PO SCH (07:40)
[2021-09-23] MEDS: BUDESONIDE 0.5 MG/2 ML NEB NEB SCH ×2 (08:30→20:00)
--- NOTE | 2021-09-23 18:09 | R.PN ---
PROGRESS NOTES ENCOUNTER DATE AND TIME: 09/23/2021 18:06 (CDT) NAME JAIMIE TERRELL DATE OF : 1935 DATE OF ADMISSION: 09/17/2021 17:28 (CDT) Acute multifocal R MCA territory infarcts with hemorrhagic conversionCHIEF COMPLAINT: Rt MCA stroke, left sided weakness SUBJECTIVE: Pt denied any Shortness of Breath. Pt denied any depression. CBC with differential is normal, prealbumin 15.4, covid-19 is negative. Ambulated 300' with standby assistance using a rolling walker. Up and down 20 steps with contact guar d assistance. VITAL SIGNS Temperature: 98.0 F SBP/DBP: 132/80 Pulse: 72 Resp: 16 MEDICATION ALLERGIES: No Known Drug Allergies (NKDA) ENVIRONMENTAL ALLERGIES: - Substance Allergies None Known - Other Allergies None Known NURSING: - Shower allowing shower - Bladder care per protocol - Skin care per protocol PRECAUTIONS: - Fall Precaution Bed alarm TABS alarm Wheel chair alarm - DVT Risk due to restricted mobility and age - Cardiac Precaution Monitor blood pressure, heart rate, lower extremity edema, notify MD for shortness of breath or chest pain Monitor patient for excessive elevation of heart rate and blood pressure during therapy - Skin Breakdown Risk due to restricted mobility and age - Incontinence Bladder Incontinence ACTIVITIES OOB only with supervision THERAPIES: - Dietary and Nutrition Adequate Nutrition. Nutritional Education. Nutritional Supplements. Evaluate and Treat. - Occupational Therapy Cognitive Retraining. Patient needs Occupational Therapy for a daily minimum of 1.5 hours at least 5 out of 7 days, to improve Activities of Daily Living, including: Eating, Grooming, Bathing, Dressing, Toileting, Toilet Transfers, Community Reintegration, Higher functional activities, Adaptive Equipme nt, Splinting, Household Tasks, and Other activities as determined. Visual Perceptual Training. Evalu ate and Treat. Household Tasks. Patient/Family Education. ADL Training. Safety Awareness. - Speech Therapy Cognitive Training. Expressive Language Skills. Memory Strategies. Patient needs Speech Therapy for a daily minimum of 1.5 hours at least 5 out of 7 days, to improve: Swallowing, Cognition, Language Ski lls, and Compensatory Strategies. Receptive Language Skills. Speech Intelligibility Training. Evaluat e and Treat. - Physical Therapy Patient needs Physical Therapy for a daily minimum of 1.5 hours at least 5 out of 7 days, to improve: Mobility, Strengthening, Transfers, Stretching, ROM, Endurance, Ability to manage stairs, Gait, and Balance. Balance Training. Evaluate and Treat. Gait Training. Safety Awareness. Transfer Training. LE Strengthening. PHYSICAL EXAM - Gen Alert and awake Lying in bed No apparent distress Oriented to: person, time, and place - Skin No skin breakdown. Normacephalic - Eyes No abnormalities - ENMT No abnormalities - Neck No abnormalities - CVS RRR - Chest No abnormalities - Resp No wheezing - Abd Soft - GI + bowel sounds No abnormalities - No abnormalities - Ext No significant edema - MSK 4+/5 weakness in left upper and lower extremity - Neuro 4/5 strength left upper and lower extremities. - Psych No abnormalities ASSESSMENT: On 09/10/2021 she was admitted to [facility] and underwent emergency surgery for Acut e multifocal R MCA territory infarcts with hemorrhagic conversion (Stroke(Left Body (Right Brain))) SARAH Morley.On 09/10/2021 Pt. presented to [facility] with sudden onset of left- side weakness.Pt. is a 85 yo female of unknown race.Pre-morbidly, Pt. was independent/mod-I in Locomo tion, Endurance, and Self-Care; and she had good Safety Awareness, Transfers Control, and Balance.Cur rently, she has deficits of Locomotion, Safety Awareness, Transfers Control, Self-Care, and Endurance .Pt. is now referred to [facility] for acute in-patient rehabilitation in [facility] to maximize patient's functional independence in activities of daily living, strength, ROM, and mob ility.- Rehab Goal Patient has realistic goal of being discharged at assistance level 7-Ind to reside at Home with Pt s elf. COVID-19 test today is negative.MDM/PLAN: - Physical Therapy Gait dysfunction - to improve, our physical therapists will perform initial evaluation of pt's statu s upon admission and devise an individualized program for Gait Training, and Wheel Chair mobility Inability to transfer - to improve, our physical therapists will perform initial evaluation of pt's status upon admission and devise an individualized program for Bed mobility Need for home safety evaluation - to improve, our physical therapists will perform initial evaluatio n of pt's status upon admission and devise an individualized program for Home Evaluation Need in caregiver upon discharge - to improve, our physical therapists will perform initial evaluati on of pt's status upon admission and devise an individualized program for Caregiver Training Edema - to improve, our physical therapists will perform initial evaluation of pt's status upon admi ssion and devise an individualized program for Elevation Training, and Lymphedema Therapy New precaution - to improve, our physical therapists will perform initial evaluation of pt's status upon admission and devise an individualized program for Patient precaution education Poor endurance - to improve, our physical therapists will perform initial evaluation of pt's status upon admission and devise an individualized program for Endurance Training Weakness - to improve, our physical therapists will perform initial evaluation of pt's status upon a dmission and devise an individualized program for Aquatic Therapy, Neuromuscular Reeducation, and Str engthening Achieving independence - to improve, our physical therapists will perform initial evaluation of pt's status upon admission and devise an individualized program for Community Reintegration Activities - Occupational Therapy ADL deficits - to improve, our occupation therapists will perform initial evaluation of pt's status upon admission and devise an individualized program for Bathing, Bed mobility, Community Reintegratio n, Cooking, Dressing, Eating, Fine Motor Skills, Grooming, Homemaking, Kitchen Mobility, Laundry, Pat ient Education, Safety Awareness, Splinting - Positioning, Transfers(Toilet, Tub, Shower), and Wheel Chair Management Need for care team coordinator scheduler - to improve, our occupation therapists will perform initial evaluation of pt's status upon admission and devise an individualized program for Caregiver Training Weakness - to improve, our occupation therapists will perform initial evaluation of pt's status upon admission and devise an individualized program for Aquatic Therapy, Balance, Endurance, UE ROM, and UE strengthening - Other See attached MAR (Medication Administration Record) - Diet Type Continue Regular - Diet - Liquid Texture Continue Regular - Tube Feed Continue N/A - Incontinence Bladder Incontinence - Bladder care per protocol - DVT Risk due to restricted mobility and age - Skin Breakdown Risk due to restricted mobility and age - Cardiac Precaution Monitor blood pressure, heart rate, lower extremity edema, notify MD for shortness of breath or ches t pain Monitor patient for excessive elevation of heart rate and blood pressure during therapy - Weight Bearing Precaution WBAT left LE - Fall Precaution Bed alarm TABS alarm Wheel chair alarm - Skin care per protocol - Diet - Solid Texture Continue Regular - Shower allowing shower for Dementia, TBI, Stroke, or others FUNCTIONAL STATUS: UPDATED AT WEEKLY TEAM CONFERENCE - Bladder Same accident frequency: 7-Ind - No accidents in the past 7 days - Bowel Same accident frequency: 7-Ind - No accidents in the past 7 days - Walking Same score based on distance walked: 0(N/A) Same score based on distance walked: 1(<=50ft) - Wheelchair Same score based on distance traveled: 0(N/A) FUNCTIONAL STATUS: - Self-Care A. Eating Ind B. Grooming Kassie C. Bathing modA D. Dressing - Upper Kassie E. Dressing - Lower modA F. Toileting Kassie - Sphincter Control G. Bladder control Carroll H. Bowel control Carroll - Transfers Control I. Bed/Chair/Wheelchair Kassie J. Toilet Kassie K. Tub/Shower modA - Locomotion L. Walk/Wheelchair (B) Kassie M. Stairs Dep - Communication N. Comprehension (B) sup O. Expression (B) sup - Social Cognition P. Social Interaction Carroll Q. Problem Solving sup R. Memory sup - Endurance Fair - Balance Fair - Safety Awareness Fair QI SCORES: - Self-Care A. Eating 03-Partial/moderate assistance B. Oral hygiene 03-Partial/moderate assistance C. Toileting hygiene 03-Partial/moderate assistance E. Shower/bathe self 04-Supervision or touching assistance F. Upper body dressing 03-Partial/moderate assistance G. Lower body dressing 03-Partial/moderate assistance H. Putting on/taking off footwear 88-Not attempted due to medical condition or safety concerns - Mobility A. Roll left and right 04-Supervision or touching assistance B. Sit to lying 03-Partial/moderate assistance C. Lying to sitting on side of bed 03-Partial/moderate assistance D. Sit to stand 03-Partial/moderate assistance E. Chair/[id number] transfer 03-Partial/moderate assistance F. Toilet transfer 03-Partial/moderate assistance G. Car transfer 88-Not attempted due to medical condition or safety concerns I. Walk 10 feet 03-Partial/moderate assistance J. Walk 50 feet with two turns 88-Not attempted due to medical condition or safety concerns K. Walk 150 feet 88-Not attempted due to medical condition or safety concerns L. Walking 10 feet on uneven surfaces 88-Not attempted due to medical condition or safety concerns M. 1 step (curb) 88-Not attempted due to medical condition or safety concerns N. 4 steps 88-Not attempted due to medical condition or safety concerns O. 12 steps 88-Not attempted due to medical condition or safety concerns P. Picking up object 88-Not attempted due to medical condition or safety concerns R. Wheel 50 feet with two turns 88-Not attempted due to medical condition or safety concerns S. Wheel 150 feet 88-Not attempted due to medical condition or safety concerns - Bladder and Bowel Bladder continence Bowel continence - Endurance Fair - Balance Fair - Safety Awareness Fair CURRENT [facility]. DEFICITS: Self-Care, Mobility, Endurance, Balance, and Safety Awareness SIGNATURE PANEL: (CDT)
[2021-09-23] MEDS: ATORVASTATIN 40 MG TAB PO SCH (19:35)
[2021-09-24] MEDS: DIGOXIN 0.125 MG TABLET PO SCH (06:43)
[2021-09-24] MEDS: FLUTICASONE NASAL SPRAY NAS SCH (06:43)
[2021-09-24] MEDS: METOPROLOL TAR 50 MG TAB PO SCH ×2 (07:44→19:36)
[2021-09-24] MEDS: CEFDINIR 300 MG CAP PO SCH (07:45)
[2021-09-24] MEDS: AMLODIPINE 5 MG TAB PO SCH (07:45)
[2021-09-24] MEDS: APIXABAN 5 MG TABLET PO SCH ×2 (07:46→19:36)
[2021-09-24] MEDS: BUDESONIDE 0.5 MG/2 ML NEB NEB SCH ×2 (08:17→20:09)
[2021-09-24] MEDS: ALBUTEROL 2.5 MG/3 ML NEB SOL NEB PRN (08:17)
--- NOTE | 2021-09-24 17:43 | R.PN ---
PROGRESS NOTES ENCOUNTER DATE AND TIME: 09/24/2021 17:39 (CDT) NAME JAIMIE TERRELL DATE OF : 1935 DATE OF ADMISSION: 09/17/2021 17:28 (CDT) Acute multifocal R MCA territory infarcts with hemorrhagic conversionCHIEF COMPLAINT: Rt MCA stroke, left sided weakness SUBJECTIVE: Pt denied any Shortness of Breath. Pt denied any depression. CBC with differential is normal, prealbumin 15.4, covid-19 is negative.x 2. Ambulated 500' with standby assistance using a rolling walker. Up and down 15 steps with standby assi stance. VITAL SIGNS Temperature: 97.0 F SBP/DBP: 123/72 Pulse: 85 Resp: 16 MEDICATION ALLERGIES: No Known Drug Allergies (NKDA) ENVIRONMENTAL ALLERGIES: - Substance Allergies None Known - Other Allergies None Known NURSING: - Shower allowing shower - Bladder care per protocol - Skin care per protocol PRECAUTIONS: - Fall Precaution Bed alarm TABS alarm Wheel chair alarm - DVT Risk due to restricted mobility and age - Cardiac Precaution Monitor blood pressure, heart rate, lower extremity edema, notify MD for shortness of breath or chest pain Monitor patient for excessive elevation of heart rate and blood pressure during therapy - Skin Breakdown Risk due to restricted mobility and age - Incontinence Bladder Incontinence ACTIVITIES OOB only with supervision THERAPIES: - Dietary and Nutrition Adequate Nutrition. Nutritional Education. Nutritional Supplements. Evaluate and Treat. - Occupational Therapy Cognitive Retraining. Patient needs Occupational Therapy for a daily minimum of 1.5 hours at least 5 out of 7 days, to improve Activities of Daily Living, including: Eating, Grooming, Bathing, Dressing, Toileting, Toilet Transfers, Community Reintegration, Higher functional activities, Adaptive Equipme nt, Splinting, Household Tasks, and Other activities as determined. Visual Perceptual Training. Evalu ate and Treat. Household Tasks. Patient/Family Education. ADL Training. Safety Awareness. - Speech Therapy Cognitive Training. Expressive Language Skills. Memory Strategies. Patient needs Speech Therapy for a daily minimum of 1.5 hours at least 5 out of 7 days, to improve: Swallowing, Cognition, Language Ski lls, and Compensatory Strategies. Receptive Language Skills. Speech Intelligibility Training. Evaluat e and Treat. - Physical Therapy Patient needs Physical Therapy for a daily minimum of 1.5 hours at least 5 out of 7 days, to improve: Mobility, Strengthening, Transfers, Stretching, ROM, Endurance, Ability to manage stairs, Gait, and Balance. Balance Training. Evaluate and Treat. Gait Training. Safety Awareness. Transfer Training. LE Strengthening. PHYSICAL EXAM - Gen Alert and awake Lying in bed No apparent distress Oriented to: person, time, and place - Skin No skin breakdown. Normacephalic - Eyes No abnormalities - ENMT No abnormalities - Neck No abnormalities - CVS RRR - Chest No abnormalities - Resp No wheezing - Abd Soft - GI + bowel sounds No abnormalities - No abnormalities - Ext No significant edema - MSK 4+/5 weakness in left upper and lower extremity - Neuro 4/5 strength left upper and lower extremities. - Psych No abnormalities ASSESSMENT: On 09/10/2021 she was admitted to [facility] and underwent emergency surgery for Acut e multifocal R MCA territory infarcts with hemorrhagic conversion (Stroke(Left Body (Right Brain))) SARAH Morley.On 09/10/2021 Pt. presented to [facility] with sudden onset of left- side weakness.Pt. is a 85 yo female of unknown race.Pre-morbidly, Pt. was independent/mod-I in Locomo tion, Endurance, and Self-Care; and she had good Safety Awareness, Transfers Control, and Balance.Cur rently, she has deficits of Locomotion, Safety Awareness, Transfers Control, Self-Care, and Endurance .Pt. is now referred to [facility] for acute in-patient rehabilitation in [facility] to maximize patient's functional independence in activities of daily living, strength, ROM, and mob ility.- Rehab Goal Patient has realistic goal of being discharged at assistance level 7-Ind to reside at Home with Pt s elf. COVID-19 test today is negative.MDM/PLAN: - Physical Therapy Gait dysfunction - to improve, our physical therapists will perform initial evaluation of pt's statu s upon admission and devise an individualized program for Gait Training, and Wheel Chair mobility Inability to transfer - to improve, our physical therapists will perform initial evaluation of pt's status upon admission and devise an individualized program for Bed mobility Need for home safety evaluation - to improve, our physical therapists will perform initial evaluatio n of pt's status upon admission and devise an individualized program for Home Evaluation Need in caregiver upon discharge - to improve, our physical therapists will perform initial evaluati on of pt's status upon admission and devise an individualized program for Caregiver Training Edema - to improve, our physical therapists will perform initial evaluation of pt's status upon admi ssion and devise an individualized program for Elevation Training, and Lymphedema Therapy New precaution - to improve, our physical therapists will perform initial evaluation of pt's status upon admission and devise an individualized program for Patient precaution education Poor endurance - to improve, our physical therapists will perform initial evaluation of pt's status upon admission and devise an individualized program for Endurance Training Weakness - to improve, our physical therapists will perform initial evaluation of pt's status upon a dmission and devise an individualized program for Aquatic Therapy, Neuromuscular Reeducation, and Str engthening Achieving independence - to improve, our physical therapists will perform initial evaluation of pt's status upon admission and devise an individualized program for Community Reintegration Activities - Occupational Therapy ADL deficits - to improve, our occupation therapists will perform initial evaluation of pt's status upon admission and devise an individualized program for Bathing, Bed mobility, Community Reintegratio n, Cooking, Dressing, Eating, Fine Motor Skills, Grooming, Homemaking, Kitchen Mobility, Laundry, Pat ient Education, Safety Awareness, Splinting - Positioning, Transfers(Toilet, Tub, Shower), and Wheel Chair Management Need for career development consultant - to improve, our occupation therapists will perform initial evaluation of pt's status upon admission and devise an individualized program for Caregiver Training Weakness - to improve, our occupation therapists will perform initial evaluation of pt's status upon admission and devise an individualized program for Aquatic Therapy, Balance, Endurance, UE ROM, and UE strengthening - Other See attached MAR (Medication Administration Record) - Diet Type Continue Regular - Diet - Liquid Texture Continue Regular - Tube Feed Continue N/A - Incontinence Bladder Incontinence - Bladder care per protocol - DVT Risk due to restricted mobility and age - Skin Breakdown Risk due to restricted mobility and age - Cardiac Precaution Monitor blood pressure, heart rate, lower extremity edema, notify MD for shortness of breath or ches t pain Monitor patient for excessive elevation of heart rate and blood pressure during therapy - Weight Bearing Precaution WBAT left LE - Fall Precaution Bed alarm TABS alarm Wheel chair alarm - Skin care per protocol - Diet - Solid Texture Continue Regular - Shower allowing shower for Dementia, TBI, Stroke, or others FUNCTIONAL STATUS: UPDATED AT WEEKLY TEAM CONFERENCE - Bladder Same accident frequency: 7-Ind - No accidents in the past 7 days - Bowel Same accident frequency: 7-Ind - No accidents in the past 7 days - Walking Same score based on distance walked: 0(N/A) Same score based on distance walked: 1(<=50ft) - Wheelchair Same score based on distance traveled: 0(N/A) FUNCTIONAL STATUS: - Self-Care A. Eating Ind B. Grooming Kassie C. Bathing modA D. Dressing - Upper Kassie E. Dressing - Lower modA F. Toileting Kassie - Sphincter Control G. Bladder control Carroll H. Bowel control Carroll - Transfers Control I. Bed/Chair/Wheelchair Kassie J. Toilet Kassie K. Tub/Shower modA - Locomotion L. Walk/Wheelchair (B) Kassie M. Stairs Dep - Communication N. Comprehension (B) sup O. Expression (B) sup - Social Cognition P. Social Interaction Carroll Q. Problem Solving sup R. Memory sup - Endurance Fair - Balance Fair - Safety Awareness Fair QI SCORES: - Self-Care A. Eating 03-Partial/moderate assistance B. Oral hygiene 03-Partial/moderate assistance C. Toileting hygiene 03-Partial/moderate assistance E. Shower/bathe self 04-Supervision or touching assistance F. Upper body dressing 03-Partial/moderate assistance G. Lower body dressing 03-Partial/moderate assistance H. Putting on/taking off footwear 88-Not attempted due to medical condition or safety concerns - Mobility A. Roll left and right 04-Supervision or touching assistance B. Sit to lying 03-Partial/moderate assistance C. Lying to sitting on side of bed 03-Partial/moderate assistance D. Sit to stand 03-Partial/moderate assistance E. Chair/[id number] transfer 03-Partial/moderate assistance F. Toilet transfer 03-Partial/moderate assistance G. Car transfer 88-Not attempted due to medical condition or safety concerns I. Walk 10 feet 03-Partial/moderate assistance J. Walk 50 feet with two turns 88-Not attempted due to medical condition or safety concerns K. Walk 150 feet 88-Not attempted due to medical condition or safety concerns L. Walking 10 feet on uneven surfaces 88-Not attempted due to medical condition or safety concerns M. 1 step (curb) 88-Not attempted due to medical condition or safety concerns N. 4 steps 88-Not attempted due to medical condition or safety concerns O. 12 steps 88-Not attempted due to medical condition or safety concerns P. Picking up object 88-Not attempted due to medical condition or safety concerns R. Wheel 50 feet with two turns 88-Not attempted due to medical condition or safety concerns S. Wheel 150 feet 88-Not attempted due to medical condition or safety concerns - Bladder and Bowel Bladder continence Bowel continence - Endurance Fair - Balance Fair - Safety Awareness Fair CURRENT [facility]. DEFICITS: Self-Care, Mobility, Endurance, Balance, and Safety Awareness SIGNATURE PANEL: (CDT)
[2021-09-24] MEDS: ATORVASTATIN 40 MG TAB PO SCH (19:36)
[2021-09-24] MEDS: MELATONIN 3 MG TABLET PO PRN (19:36)
[2021-09-25 06:45] LABS: Absolute Lymphocytes (CBC) 1.9 K/uL (0.7-4.9); Hematocrit 43.8 % (36.0-45.0); Lymphocytes % 29.3 % (15.3-44.8); MPV 7.5 fL (7.6-11.3); RBC Red Blood Cell Count 4.64 M/uL (3.86-4.86)
[2021-09-25 06:49] LABS: Albumin 3.6 g/dL (3.4-5.0); Magnesium 2.3 mg/dL (1.8-2.4); Potassium 4.4 mmol/L (3.5-5.1); Prealbumin 14.6 mg/dL (20-40)
[2021-09-25] MEDS: ALBUTEROL 2.5 MG/3 ML NEB SOL NEB PRN (07:15)
[2021-09-25] MEDS: BUDESONIDE 0.5 MG/2 ML NEB NEB SCH ×2 (07:22→22:06)
[2021-09-25] MEDS: FLUTICASONE NASAL SPRAY NAS SCH (07:47)
[2021-09-25] MEDS: AMLODIPINE 5 MG TAB PO SCH (07:47)
[2021-09-25] MEDS: APIXABAN 5 MG TABLET PO SCH ×2 (07:48→19:41)
[2021-09-25] MEDS: DIGOXIN 0.125 MG TABLET PO SCH (07:48)
[2021-09-25] MEDS: METOPROLOL TAR 50 MG TAB PO SCH ×2 (11:29→19:39)
[2021-09-25 17:48] LABS: Urine Appearance Clear (Clear); Urine Bilirubin Negative (Negative); Urine Blood Negative (Negative); Urine Color Yellow (Yellow); Urine Glucose Negative (Negative); Urine Protein Negative (Negative); Urine Urobilinogen 0.2 mg/dL (0.2-1.0)
[2021-09-25 17:59] LABS: Urine Microscopic Reflex ORDER UMIC
[2021-09-25 18:03] LABS: Urine Bacteria <20 /HPF (<20); Urine RBC NONE SEEN /HPF (NONE SEEN)
--- NOTE | 2021-09-25 18:04 | R.PN ---
PROGRESS NOTES ENCOUNTER DATE AND TIME: 09/25/2021 18:01 (CDT) NAME JAIMIE TERRELL DATE OF : 1935 DATE OF ADMISSION: 09/17/2021 17:28 (CDT) Acute multifocal R MCA territory infarcts with hemorrhagic conversionCHIEF COMPLAINT: Rt MCA stroke, left sided weakness SUBJECTIVE: Pt denied any Shortness of Breath. Pt denied any depression. CBC with differential is normal, prealbumin 15.2, covid-19 is negative.x 2. Ambulated 500' with standby assistance using a rolling walker. VITAL SIGNS Temperature: 97.4 F SBP/DBP: 124/68 Pulse: 78 Resp: 15 MEDICATION ALLERGIES: No Known Drug Allergies (NKDA) ENVIRONMENTAL ALLERGIES: - Substance Allergies None Known - Other Allergies None Known NURSING: - Shower allowing shower - Bladder care per protocol - Skin care per protocol PRECAUTIONS: - Fall Precaution Bed alarm TABS alarm Wheel chair alarm - DVT Risk due to restricted mobility and age - Cardiac Precaution Monitor blood pressure, heart rate, lower extremity edema, notify MD for shortness of breath or chest pain Monitor patient for excessive elevation of heart rate and blood pressure during therapy - Skin Breakdown Risk due to restricted mobility and age - Incontinence Bladder Incontinence ACTIVITIES OOB only with supervision THERAPIES: - Dietary and Nutrition Adequate Nutrition. Nutritional Education. Nutritional Supplements. Evaluate and Treat. - Occupational Therapy Cognitive Retraining. Patient needs Occupational Therapy for a daily minimum of 1.5 hours at least 5 out of 7 days, to improve Activities of Daily Living, including: Eating, Grooming, Bathing, Dressing, Toileting, Toilet Transfers, Community Reintegration, Higher functional activities, Adaptive Equipme nt, Splinting, Household Tasks, and Other activities as determined. Visual Perceptual Training. Evalu ate and Treat. Household Tasks. Patient/Family Education. ADL Training. Safety Awareness. - Speech Therapy Cognitive Training. Expressive Language Skills. Memory Strategies. Patient needs Speech Therapy for a daily minimum of 1.5 hours at least 5 out of 7 days, to improve: Swallowing, Cognition, Language Ski lls, and Compensatory Strategies. Receptive Language Skills. Speech Intelligibility Training. Evaluat e and Treat. - Physical Therapy Patient needs Physical Therapy for a daily minimum of 1.5 hours at least 5 out of 7 days, to improve: Mobility, Strengthening, Transfers, Stretching, ROM, Endurance, Ability to manage stairs, Gait, and Balance. Balance Training. Evaluate and Treat. Gait Training. Safety Awareness. Transfer Training. LE Strengthening. PHYSICAL EXAM - Gen Alert and awake Lying in bed No apparent distress Oriented to: person, time, and place - Skin No skin breakdown. Normacephalic - Eyes No abnormalities - ENMT No abnormalities - Neck No abnormalities - CVS RRR - Chest No abnormalities - Resp No wheezing - Abd Soft - GI + bowel sounds No abnormalities - No abnormalities - Ext No significant edema - MSK 4+/5 weakness in left upper and lower extremity - Neuro 4/5 strength left upper and lower extremities. - Psych No abnormalities ASSESSMENT: On 09/10/2021 she was admitted to [facility] and underwent emergency surgery for Acut e multifocal R MCA territory infarcts with hemorrhagic conversion (Stroke(Left Body (Right Brain))) SARAH Morley.On 09/10/2021 Pt. presented to [facility] with sudden onset of left- side weakness.Pt. is a 85 yo female of unknown race.Pre-morbidly, Pt. was independent/mod-I in Locomo tion, Endurance, and Self-Care; and she had good Safety Awareness, Transfers Control, and Balance.Cur rently, she has deficits of Locomotion, Safety Awareness, Transfers Control, Self-Care, and Endurance .Pt. is now referred to [facility] for acute in-patient rehabilitation in [facility] to maximize patient's functional independence in activities of daily living, strength, ROM, and mob ility.- Rehab Goal Patient has realistic goal of being discharged at assistance level 7-Ind to reside at Home with Pt s elf. COVID-19 test today is negative.MDM/PLAN: - Physical Therapy Gait dysfunction - to improve, our physical therapists will perform initial evaluation of pt's statu s upon admission and devise an individualized program for Gait Training, and Wheel Chair mobility Inability to transfer - to improve, our physical therapists will perform initial evaluation of pt's status upon admission and devise an individualized program for Bed mobility Need for home safety evaluation - to improve, our physical therapists will perform initial evaluatio n of pt's status upon admission and devise an individualized program for Home Evaluation Need in caregiver upon discharge - to improve, our physical therapists will perform initial evaluati on of pt's status upon admission and devise an individualized program for Caregiver Training Edema - to improve, our physical therapists will perform initial evaluation of pt's status upon admi ssion and devise an individualized program for Elevation Training, and Lymphedema Therapy New precaution - to improve, our physical therapists will perform initial evaluation of pt's status upon admission and devise an individualized program for Patient precaution education Poor endurance - to improve, our physical therapists will perform initial evaluation of pt's status upon admission and devise an individualized program for Endurance Training Weakness - to improve, our physical therapists will perform initial evaluation of pt's status upon a dmission and devise an individualized program for Aquatic Therapy, Neuromuscular Reeducation, and Str engthening Achieving independence - to improve, our physical therapists will perform initial evaluation of pt's status upon admission and devise an individualized program for Community Reintegration Activities - Occupational Therapy ADL deficits - to improve, our occupation therapists will perform initial evaluation of pt's status upon admission and devise an individualized program for Bathing, Bed mobility, Community Reintegratio n, Cooking, Dressing, Eating, Fine Motor Skills, Grooming, Homemaking, Kitchen Mobility, Laundry, Pat ient Education, Safety Awareness, Splinting - Positioning, Transfers(Toilet, Tub, Shower), and Wheel Chair Management Need for geriatric care manager - to improve, our occupation therapists will perform initial evaluation of pt's status upon admission and devise an individualized program for Caregiver Training Weakness - to improve, our occupation therapists will perform initial evaluation of pt's status upon admission and devise an individualized program for Aquatic Therapy, Balance, Endurance, UE ROM, and UE strengthening - Other See attached MAR (Medication Administration Record) - Diet Type Continue Regular - Diet - Liquid Texture Continue Regular - Tube Feed Continue N/A - Incontinence Bladder Incontinence - Bladder care per protocol - DVT Risk due to restricted mobility and age - Skin Breakdown Risk due to restricted mobility and age - Cardiac Precaution Monitor blood pressure, heart rate, lower extremity edema, notify MD for shortness of breath or ches t pain Monitor patient for excessive elevation of heart rate and blood pressure during therapy - Weight Bearing Precaution WBAT left LE - Fall Precaution Bed alarm TABS alarm Wheel chair alarm - Skin care per protocol - Diet - Solid Texture Continue Regular - Shower allowing shower for Dementia, TBI, Stroke, or others FUNCTIONAL STATUS: UPDATED AT WEEKLY TEAM CONFERENCE - Bladder Same accident frequency: 7-Ind - No accidents in the past 7 days - Bowel Same accident frequency: 7-Ind - No accidents in the past 7 days - Walking Same score based on distance walked: 0(N/A) Same score based on distance walked: 1(<=50ft) - Wheelchair Same score based on distance traveled: 0(N/A) FUNCTIONAL STATUS: - Self-Care A. Eating Ind B. Grooming Kassie C. Bathing modA D. Dressing - Upper Kassie E. Dressing - Lower modA F. Toileting Kassie - Sphincter Control G. Bladder control Carroll H. Bowel control Carroll - Transfers Control I. Bed/Chair/Wheelchair Kassie J. Toilet Kassie K. Tub/Shower modA - Locomotion L. Walk/Wheelchair (B) Kassie M. Stairs Dep - Communication N. Comprehension (B) sup O. Expression (B) sup - Social Cognition P. Social Interaction Carroll Q. Problem Solving sup R. Memory sup - Endurance Fair - Balance Fair - Safety Awareness Fair QI SCORES: - Self-Care A. Eating 03-Partial/moderate assistance B. Oral hygiene 03-Partial/moderate assistance C. Toileting hygiene 03-Partial/moderate assistance E. Shower/bathe self 04-Supervision or touching assistance F. Upper body dressing 03-Partial/moderate assistance G. Lower body dressing 03-Partial/moderate assistance H. Putting on/taking off footwear 88-Not attempted due to medical condition or safety concerns - Mobility A. Roll left and right 04-Supervision or touching assistance B. Sit to lying 03-Partial/moderate assistance C. Lying to sitting on side of bed 03-Partial/moderate assistance D. Sit to stand 03-Partial/moderate assistance E. Chair/[id number] transfer 03-Partial/moderate assistance F. Toilet transfer 03-Partial/moderate assistance G. Car transfer 88-Not attempted due to medical condition or safety concerns I. Walk 10 feet 03-Partial/moderate assistance J. Walk 50 feet with two turns 88-Not attempted due to medical condition or safety concerns K. Walk 150 feet 88-Not attempted due to medical condition or safety concerns L. Walking 10 feet on uneven surfaces 88-Not attempted due to medical condition or safety concerns M. 1 step (curb) 88-Not attempted due to medical condition or safety concerns N. 4 steps 88-Not attempted due to medical condition or safety concerns O. 12 steps 88-Not attempted due to medical condition or safety concerns P. Picking up object 88-Not attempted due to medical condition or safety concerns R. Wheel 50 feet with two turns 88-Not attempted due to medical condition or safety concerns S. Wheel 150 feet 88-Not attempted due to medical condition or safety concerns - Bladder and Bowel Bladder continence Bowel continence - Endurance Fair - Balance Fair - Safety Awareness Fair CURRENT [facility]. DEFICITS: Self-Care, Mobility, Endurance, Balance, and Safety Awareness SIGNATURE PANEL: (CDT)
[2021-09-25] MEDS: MELATONIN 3 MG TABLET PO PRN (19:41)
[2021-09-25] MEDS: ATORVASTATIN 40 MG TAB PO SCH (19:41)
[2021-09-25] MEDS: IPRATROPIUM BROM 0.5MG/2.5ML NEB PRN (22:06)
[2021-09-25] MEDS ORDERED: BUDESONIDE 0.5 MG/2 ML NEB ONE (22:31)
[2021-09-25] MEDS ORDERED: IPRATROPIUM BROM 0.5MG/2.5ML ONE (22:31)
[2021-09-26] MEDS: AMLODIPINE 5 MG TAB PO SCH (07:21)
[2021-09-26] MEDS: FLUTICASONE NASAL SPRAY NAS SCH (07:21)
[2021-09-26] MEDS: METOPROLOL TAR 50 MG TAB PO SCH ×2 (07:22→20:29)
[2021-09-26] MEDS: DIGOXIN 0.125 MG TABLET PO SCH (07:22)
[2021-09-26] MEDS: APIXABAN 5 MG TABLET PO SCH ×2 (07:22→20:30)
[2021-09-26] MEDS: BUDESONIDE 0.5 MG/2 ML NEB NEB SCH ×2 (07:51→20:25)
[2021-09-26] MEDS ORDERED: BUDESONIDE 0.5 MG/2 ML NEB ONE (07:57)
--- NOTE | 2021-09-26 09:46 | P.RH.PN ---
Estimated Length of Stay: 11 Expected Discharge Date: 09/28/21 Discharge Disposition Plan: Home Family Support: Yes Long-Term Goal: Mobility, Transfers, Self Care Vital Signs: Last Vital Signs Temp 97.5 F 09/26/21 09:01 Pulse 72 09/26/21 09:01 Resp 17 09/26/21 09:01 BP 134/88 09/26/21 09:01 Pulse Ox 95 09/26/21 09:01 Laboratory: Laboratory Last Values WBC 6.6 K/uL (4.3-10.9) 09/25/21 05:55 RBC 4.64 M/uL (3.86-4.86) 09/25/21 05:55 Hgb 15.2 g/dL (12.0-15.0) H 09/25/21 05:55 Hct 43.8 % (36.0-45.0) 09/25/21 05:55 MCV 94.4 fL (80-100) 09/25/21 05:55 MCH 32.8 pg (27.0-35.0) 09/25/21 05:55 MCHC 34.8 g/dL (32.0-36.0) 09/25/21 05:55 RDW 12.9 % (12.1-15.2) 09/25/21 05:55 Plt Count 355 K/uL (152-406) D 09/25/21 05:55 MPV 7.5 fL (7.6-11.3) L 09/25/21 05:55 Neutrophils % 57.3 % (41.7-73.7) 09/25/21 05:55 Lymphocytes % 29.3 % (15.3-44.8) 09/25/21 05:55 Monocytes % 9.1 % (3.3-12.3) 09/25/21 05:55 Eosinophils % 3.8 % (0-4.4) 09/25/21 05:55 Basophils % 0.5 % (0-1.3) 09/25/21 05:55 Absolute Neutrophils 3.8 K/uL (1.8-8.0) 09/25/21 05:55 Absolute Lymphocytes 1.9 K/uL (0.7-4.9) 09/25/21 05:55 Absolute Monocytes 0.6 K/uL (0.1-1.3) 09/25/21 05:55 Absolute Eosinophils 0.2 K/uL (0-0.5) 09/25/21 05:55 Absolute Basophils 0.0 K/uL (0-0.5) 09/25/21 05:55 Sodium 141 mmol/L (136-145) 09/25/21 05:55 Potassium 4.4 mmol/L (3.5-5.1) 09/25/21 05:55 Chloride 109 mmol/L (98-107) H 09/25/21 05:55 Carbon Dioxide 29 mmol/L (21-32) 09/25/21 05:55 Anion Gap 7.4 mEq/L (5.0-15.0) 09/25/21 05:55 BUN 18 mg/dL (7-18) 09/25/21 05:55 Creatinine 0.93 mg/dL (0.55-1.3) 09/25/21 05:55 Est GFR (CKD-EPI) 61 ml/min (=/>90) L 09/25/21 05:55 Glucose 108 mg/dL (74-106) H 09/25/21 05:55 Calcium 9.4 mg/dL (8.5-10.1) 09/25/21 05:55 Magnesium 2.3 mg/dL (1.8-2.4) 09/25/21 05:55 NT-Pro-B Natriuret Pep 838 pg/mL (<450) H 09/18/21 04:09 Albumin 3.6 g/dL (3.4-5.0) 09/25/21 05:55 Prealbumin 14.6 mg/dL (20-40) L 09/25/21 05:55 Urine Color Yellow (Yellow) 09/25/21 17:45 Urine Appearance Clear (Clear) 09/25/21 17:45 Urine pH 5.0 (5.0-7.0) 09/25/21 17:45 Ur Specific [place] 1.020 (1.005-1.030) 09/25/21 17:45 Glucose (UA)(Auto) Negative (Negative) 09/25/21 17:45 Urine Ketones Negative (Negative) 09/25/21 17:45 Urine Blood Negative (Negative) 09/25/21 17:45 Urine Nitrite Negative (Negative) 09/25/21 17:45 Urine Bilirubin Negative (Negative) 09/25/21 17:45 Urine Urobilinogen 0.2 mg/dL (0.2-1.0) 09/25/21 17:45 Ur Leukocyte Esterase Negative (Negative) 09/25/21 17:45 Urine RBC None seen /HPF (NONE SEEN) 09/25/21 17:45 Urine WBC <5 /HPF (<5) 09/25/21 17:45 Ur Squamous Epith Cells <5 /HPF (NONE SEEN) 09/25/21 17:45 Ur Urothelial Cells Cancelled 09/25/21 16:40 Calcium Oxalate Crystal Cancelled 09/25/21 16:40 Uric Acid Crystals Cancelled 09/25/21 16:40 Triple Phos Crystals Cancelled 09/25/21 16:40 Other Crystals Cancelled 09/25/21 16:40 Amorphous Sediment Cancelled 09/25/21 16:40 Glitter Cells Cancelled 09/25/21 16:40 Urine Bacteria <20 /HPF (<20) 09/25/21 17:45 Hyaline Casts Cancelled 09/25/21 16:40 Fine Granular Casts Cancelled 09/25/21 16:40 Coarse Granular Casts Cancelled 09/25/21 16:40 Waxy Casts Cancelled 09/25/21 16:40 RBC Casts Cancelled 09/25/21 16:40 WBC Casts Cancelled 09/25/21 16:40 Urine Mucus Cancelled 09/25/21 16:40 Urine Other Cancelled 09/25/21 16:40 Urine Trichomonas Cancelled 09/25/21 16:40 Urine Yeast Cancelled 09/25/21 16:40 Ur Yeast w Hyphae Cancelled 09/25/21 16:40 Urine Yeast (Budding) Cancelled 09/25/21 16:40 Urine Sperm Cancelled 09/25/21 16:40 Urine Culture Reflexed Not needed 09/25/21 17:45 Urine Total Volume Cancelled 09/25/21 16:40 Urine Total Protein Negative (Negative) 09/25/21 17:45 SARS-CoV-2 Rap RNA(RT-PCR) Negative (NEGATIVE) 09/24/21 04:46 Weight: 167 lb 6.4 oz Wound Present: No Closed Surgical Incision Present: No Negative Pressure Wound Therapy Present: No Physician Update: Labs reviewed and are stable. Mod I with bed mobility, 250' x 3 with walker at SBA. 20 steps with SBA. CGA bathing, independ upper body dressing, supervison lower body dressing. GCA from showers. Functional Improvement: Patient progressing well w/ therapy, however presents w/ depressed-like mood, and requires continuous VC for motivation to participate in therapy. 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 Please see the Rehabilitation Signature page for all necessary signatures.
[2021-09-26] MEDS: IPRATROPIUM BROM 0.5MG/2.5ML NEB PRN (20:25)
[2021-09-26] MEDS: MELATONIN 3 MG TABLET PO PRN (20:30)
[2021-09-26] MEDS: ATORVASTATIN 40 MG TAB PO SCH (20:30)
[2021-09-27] MEDS: DIGOXIN 0.125 MG TABLET PO SCH (07:19)
[2021-09-27] MEDS: APIXABAN 5 MG TABLET PO SCH ×2 (07:19→20:04)
[2021-09-27] MEDS: METOPROLOL TAR 50 MG TAB PO SCH ×2 (07:25→20:04)
[2021-09-27] MEDS: BUDESONIDE 0.5 MG/2 ML NEB NEB SCH ×2 (07:55→20:40)
[2021-09-27] MEDS: FLUTICASONE NASAL SPRAY NAS SCH (08:20)
[2021-09-27] MEDS ORDERED: AMLODIPINE 5 MG TAB PO SCH (12:00)
--- NOTE | 2021-09-27 17:05 | R.PN ---
PROGRESS NOTES ENCOUNTER DATE AND TIME: 09/27/2021 17:03 (CDT) NAME JAIMIE TERRELL DATE OF : 1935 DATE OF ADMISSION: 09/17/2021 17:28 (CDT) Acute multifocal R MCA territory infarcts with hemorrhagic conversionCHIEF COMPLAINT: Rt MCA stroke, left sided weakness SUBJECTIVE: Pt denied any Shortness of Breath. Pt denied any depression. CBC with differential is normal, prealbumin 15.2, covid-19 is negative.x 2. Ambulated 1000' with standby assistance using a rolling walker. VITAL SIGNS Temperature: 97.5 F SBP/DBP: 102/57 Pulse: 75 Resp: 16 MEDICATION ALLERGIES: No Known Drug Allergies (NKDA) ENVIRONMENTAL ALLERGIES: - Substance Allergies None Known - Other Allergies None Known NURSING: - Shower allowing shower - Bladder care per protocol - Skin care per protocol PRECAUTIONS: - Fall Precaution Bed alarm TABS alarm Wheel chair alarm - DVT Risk due to restricted mobility and age - Cardiac Precaution Monitor blood pressure, heart rate, lower extremity edema, notify MD for shortness of breath or chest pain Monitor patient for excessive elevation of heart rate and blood pressure during therapy - Skin Breakdown Risk due to restricted mobility and age - Incontinence Bladder Incontinence ACTIVITIES OOB only with supervision THERAPIES: - Dietary and Nutrition Adequate Nutrition. Nutritional Education. Nutritional Supplements. Evaluate and Treat. - Occupational Therapy Cognitive Retraining. Patient needs Occupational Therapy for a daily minimum of 1.5 hours at least 5 out of 7 days, to improve Activities of Daily Living, including: Eating, Grooming, Bathing, Dressing, Toileting, Toilet Transfers, Community Reintegration, Higher functional activities, Adaptive Equipme nt, Splinting, Household Tasks, and Other activities as determined. Visual Perceptual Training. Evalu ate and Treat. Household Tasks. Patient/Family Education. ADL Training. Safety Awareness. - Speech Therapy Cognitive Training. Expressive Language Skills. Memory Strategies. Patient needs Speech Therapy for a daily minimum of 1.5 hours at least 5 out of 7 days, to improve: Swallowing, Cognition, Language Ski lls, and Compensatory Strategies. Receptive Language Skills. Speech Intelligibility Training. Evaluat e and Treat. - Physical Therapy Patient needs Physical Therapy for a daily minimum of 1.5 hours at least 5 out of 7 days, to improve: Mobility, Strengthening, Transfers, Stretching, ROM, Endurance, Ability to manage stairs, Gait, and Balance. Balance Training. Evaluate and Treat. Gait Training. Safety Awareness. Transfer Training. LE Strengthening. PHYSICAL EXAM - Gen Alert and awake Lying in bed No apparent distress Oriented to: person, time, and place - Skin No skin breakdown. Normacephalic - Eyes No abnormalities - ENMT No abnormalities - Neck No abnormalities - CVS RRR - Chest No abnormalities - Resp No wheezing - Abd Soft - GI + bowel sounds No abnormalities - No abnormalities - Ext No significant edema - MSK 4+/5 weakness in left upper and lower extremity - Neuro 4/5 strength left upper and lower extremities. - Psych No abnormalities ASSESSMENT: On 09/10/2021 she was admitted to [facility] and underwent emergency surgery for Acut e multifocal R MCA territory infarcts with hemorrhagic conversion (Stroke(Left Body (Right Brain))) SARAH Morley.On 09/10/2021 Pt. presented to [facility] with sudden onset of left- side weakness.Pt. is a 85 yo female of unknown race.Pre-morbidly, Pt. was independent/mod-I in Locomo tion, Endurance, and Self-Care; and she had good Safety Awareness, Transfers Control, and Balance.Cur rently, she has deficits of Locomotion, Safety Awareness, Transfers Control, Self-Care, and Endurance .Pt. is now referred to [facility] for acute in-patient rehabilitation in [facility] to maximize patient's functional independence in activities of daily living, strength, ROM, and mob ility.- Rehab Goal Patient has realistic goal of being discharged at assistance level 7-Ind to reside at Home with Pt s elf. COVID-19 test today is negative.MDM/PLAN: - Physical Therapy Gait dysfunction - to improve, our physical therapists will perform initial evaluation of pt's statu s upon admission and devise an individualized program for Gait Training, and Wheel Chair mobility Inability to transfer - to improve, our physical therapists will perform initial evaluation of pt's status upon admission and devise an individualized program for Bed mobility Need for home safety evaluation - to improve, our physical therapists will perform initial evaluatio n of pt's status upon admission and devise an individualized program for Home Evaluation Need in caregiver upon discharge - to improve, our physical therapists will perform initial evaluati on of pt's status upon admission and devise an individualized program for Caregiver Training Edema - to improve, our physical therapists will perform initial evaluation of pt's status upon admi ssion and devise an individualized program for Elevation Training, and Lymphedema Therapy New precaution - to improve, our physical therapists will perform initial evaluation of pt's status upon admission and devise an individualized program for Patient precaution education Poor endurance - to improve, our physical therapists will perform initial evaluation of pt's status upon admission and devise an individualized program for Endurance Training Weakness - to improve, our physical therapists will perform initial evaluation of pt's status upon a dmission and devise an individualized program for Aquatic Therapy, Neuromuscular Reeducation, and Str engthening Achieving independence - to improve, our physical therapists will perform initial evaluation of pt's status upon admission and devise an individualized program for Community Reintegration Activities - Occupational Therapy ADL deficits - to improve, our occupation therapists will perform initial evaluation of pt's status upon admission and devise an individualized program for Bathing, Bed mobility, Community Reintegratio n, Cooking, Dressing, Eating, Fine Motor Skills, Grooming, Homemaking, Kitchen Mobility, Laundry, Pat ient Education, Safety Awareness, Splinting - Positioning, Transfers(Toilet, Tub, Shower), and Wheel Chair Management Need for geriatric care manager - to improve, our occupation therapists will perform initial evaluation of pt's status upon admission and devise an individualized program for Caregiver Training Weakness - to improve, our occupation therapists will perform initial evaluation of pt's status upon admission and devise an individualized program for Aquatic Therapy, Balance, Endurance, UE ROM, and UE strengthening - Other See attached MAR (Medication Administration Record) - Diet Type Continue Regular - Diet - Liquid Texture Continue Regular - Tube Feed Continue N/A - Incontinence Bladder Incontinence - Bladder care per protocol - DVT Risk due to restricted mobility and age - Skin Breakdown Risk due to restricted mobility and age - Cardiac Precaution Monitor blood pressure, heart rate, lower extremity edema, notify MD for shortness of breath or ches t pain Monitor patient for excessive elevation of heart rate and blood pressure during therapy - Weight Bearing Precaution WBAT left LE - Fall Precaution Bed alarm TABS alarm Wheel chair alarm - Skin care per protocol - Diet - Solid Texture Continue Regular - Shower allowing shower for Dementia, TBI, Stroke, or others FUNCTIONAL STATUS: UPDATED AT WEEKLY TEAM CONFERENCE - Bladder Same accident frequency: 7-Ind - No accidents in the past 7 days - Bowel Same accident frequency: 7-Ind - No accidents in the past 7 days - Walking Same score based on distance walked: 0(N/A) Same score based on distance walked: 1(<=50ft) - Wheelchair Same score based on distance traveled: 0(N/A) FUNCTIONAL STATUS: - Self-Care A. Eating Ind B. Grooming Kassie C. Bathing modA D. Dressing - Upper Kassie E. Dressing - Lower modA F. Toileting Kassie - Sphincter Control G. Bladder control Carroll H. Bowel control Carroll - Transfers Control I. Bed/Chair/Wheelchair Kassie J. Toilet Kassie K. Tub/Shower modA - Locomotion L. Walk/Wheelchair (B) Kassie M. Stairs Dep - Communication N. Comprehension (B) sup O. Expression (B) sup - Social Cognition P. Social Interaction Carroll Q. Problem Solving sup R. Memory sup - Endurance Fair - Balance Fair - Safety Awareness Fair QI SCORES: - Self-Care A. Eating 03-Partial/moderate assistance B. Oral hygiene 03-Partial/moderate assistance C. Toileting hygiene 03-Partial/moderate assistance E. Shower/bathe self 04-Supervision or touching assistance F. Upper body dressing 03-Partial/moderate assistance G. Lower body dressing 03-Partial/moderate assistance H. Putting on/taking off footwear 88-Not attempted due to medical condition or safety concerns - Mobility A. Roll left and right 04-Supervision or touching assistance B. Sit to lying 03-Partial/moderate assistance C. Lying to sitting on side of bed 03-Partial/moderate assistance D. Sit to stand 03-Partial/moderate assistance E. Chair/[id number] transfer 03-Partial/moderate assistance F. Toilet transfer 03-Partial/moderate assistance G. Car transfer 88-Not attempted due to medical condition or safety concerns I. Walk 10 feet 03-Partial/moderate assistance J. Walk 50 feet with two turns 88-Not attempted due to medical condition or safety concerns K. Walk 150 feet 88-Not attempted due to medical condition or safety concerns L. Walking 10 feet on uneven surfaces 88-Not attempted due to medical condition or safety concerns M. 1 step (curb) 88-Not attempted due to medical condition or safety concerns N. 4 steps 88-Not attempted due to medical condition or safety concerns O. 12 steps 88-Not attempted due to medical condition or safety concerns P. Picking up object 88-Not attempted due to medical condition or safety concerns R. Wheel 50 feet with two turns 88-Not attempted due to medical condition or safety concerns S. Wheel 150 feet 88-Not attempted due to medical condition or safety concerns - Bladder and Bowel Bladder continence Bowel continence - Endurance Fair - Balance Fair - Safety Awareness Fair CURRENT [facility]. DEFICITS: Self-Care, Mobility, Endurance, Balance, and Safety Awareness SIGNATURE PANEL: (CDT)
[2021-09-27] MEDS: ATORVASTATIN 40 MG TAB PO SCH (19:58)
[2021-09-27] MEDS: MELATONIN 3 MG TABLET PO PRN (20:01)
[2021-09-28] MEDS: ALBUTEROL 2.5 MG/3 ML NEB SOL NEB PRN (07:02)
[2021-09-28] MEDS: BUDESONIDE 0.5 MG/2 ML NEB NEB SCH (07:09)
[2021-09-28 08:07] VITALS: BP 146/84; TEMP 97.8
[2021-09-28] MEDS: DIGOXIN 0.125 MG TABLET PO SCH (08:10)
[2021-09-28] MEDS: FLUTICASONE NASAL SPRAY NAS SCH (08:10)
[2021-09-28] MEDS: APIXABAN 5 MG TABLET PO SCH (08:11)
[2021-09-28] MEDS: METOPROLOL TAR 50 MG TAB PO SCH (08:11)
[2021-09-28 09:02] VITALS: O2SAT 96
== END 2021-09-28 10:42 | disposition home or self-care (01) | DRG 57 ==
LOC: 5TH 09-17 13:58
PROVIDERS: ADMIT Psychiatry & Neurology Neurology with Special Qualifications in Child Neurology; ATTEND Psychiatry & Neurology Neurology with Special Qualifications in Child Neurology
DX: I69.854 Hemiplegia and hemiparesis following other cerebrovascular disease affecting left non-dominant side (principal); I48.91 Unspecified atrial fibrillation; I10 Essential (primary) hypertension; J44.9 Chronic obstructive pulmonary disease, unspecified; I69.892 Facial weakness following other cerebrovascular disease; Z20.822 Contact with and (suspected) exposure to COVID-19
CPT/HCPCS: 36415; 80048; 81003; 81015; 82040; 83735; 83880; 84134; 85025; 87086; 87088; 94640; 97110; 97112; 97116; 97161; 97165; 97530; 97542; U0003

== ENCOUNTER 2021-11-29 08:08 | Emergency (ER) | payer OTHER, BC ==
[2021-11-29 08:29] LABS: Urine Blood Negative (Negative); Urine Glucose Negative (Negative); Urine Protein 1+ (Negative); Urine pH 5.5 (5.0-7.0)
[2021-11-29] MEDS ORDERED: LIDOCAINE 1% MPF 5 ML VIAL ONE (08:39)
[2021-11-29] MEDS ORDERED: CEFTRIAXONE 1000 MG/VIAL ONE (08:39)
[2021-11-29 08:50] LABS: Urine Bacteria >50 /HPF (<20); Urine RBC <5 /HPF (None Seen)
--- NOTE | 2021-11-29 09:02 | EDPHYS ---
Physician Documentation [facility] Name: Batsheva Al Age: 85 yrs Sex: Female : 1935 Arrival Date: 11/29/2021 Time: 08:10 Bed 18 Private MD: ED Physician Niels Contreras HPI: 11/29 08:28 This 85 yrs old Female presents to ER via Ambulatory with complaints of Urinary Problem.jmm 08:28 The patient presents with urinary symptoms, dysuria. Onset: The symptoms/episode jmm began/occurred gradually. Modifying factors: The symptoms are alleviated by nothing, the symptoms are aggravated by nothing. Associated signs and symptoms: Pertinent positives: dysuria, Pertinent negatives: fever. It is unknown whether or not the patient has had similar symptoms in the past. This is an 85 year old female with a history of copd, htn, that presents to the ED with complaints of painful urination. Patient denies fever, vomiting, back pain. . Historical: - Allergies: 08:16 No Known Allergies; ld1 - PMHx: 08:16 COPD; Hypertension; Pneumonia; ld1 - PSHx: 08:16 right rotator cuff; Total abdominal hysterectomy; ld1 - Immunization history:: Adult Immunizations up to date, Client reports receiving the Nestor \T\ Nestor single-dose vaccine. - Social history:: Smoking status: Patient denies any tobacco usage or history of. Patient uses alcohol, occasionally. ROS: 08:28 Constitutional: Negative for fever, chills, and weight loss, Cardiovascular: Negative jmm for chest pain, palpitations, and edema, Respiratory: Negative for shortness of breath, cough, wheezing, and pleuritic chest pain. 08:28 : Positive for urinary symptoms. 08:28 All other systems are negative. Exam: 08:28 Constitutional: This is a well developed, well nourished patient who is awake, alert, jmm and in no acute distress. Head/Face: atraumatic. Eyes: EOMI, no conjunctival erythema appreciated ENT: Moist Mucus Membranes Neck: Trachea midline, Supple Chest/axilla: Normal chest wall appearance and motion. Cardiovascular: Regular rate and rhythm. No edema appreciated Respiratory: Normal respirations, no respiratory distress appreciated Abdomen/GI: Non distended Back: Normal ROM Skin: General appearance color normal MS/ Extremity: Moves all extremities, no obvious deformities appreciated, no edema noted to the lower extremities Neuro: Awake and alert Psych: Behavior is normal, Mood is normal, Patient is cooperative and pleasant Vital Signs: 08:16 BP 155 / 111; Pulse 70; Resp 16; Temp 97.6(O); Pulse Ox 93% on R/A; Weight 70.31 kg; ld1 Height 5 ft. 7 in. (170.18 cm); Pain 0/10; 08:16 Body Mass Index 24.28 (70.31 kg, 170.18 cm) ld1 MDM: 08:28 Patient medically screened. francisco 08:59 Data reviewed: vital signs, nurses notes. Counseling: I had a detailed discussion with rogers the patient and/or guardian regarding: the historical points, exam findings, and any diagnostic results supporting the discharge/admit diagnosis, lab results, the need for outpatient follow up, to return to the emergency department if symptoms worsen or persist or if there are any questions or concerns that arise at home. ED course: Patient is alert and non toxic in appearance in the ED. No signs of sepsis. Patient advised to follow up with pcp and otherwise given strict return precautions. Patient understood and agrees with the plan of care. . 11/29 08:29 Order name: Urine Microscopic Only; Complete Time: 08:59 bp 11/29 08:29 Order name: Urine Culture bp 11/29 08:29 Order name: Urine Dipstick-Ancillary (obtain specimen); Complete Time: 08:29 bp 11/29 08:29 Order name: Urine Dipstick-Ancillary; Complete Time: 08:33 EDMS Administered Medications: 08:39 Drug: Rocephin (cefTRIAXone) 1 grams Route: IM; Site: right gluteus; bp 09:07 Follow up: Response: No adverse reaction bp Disposition: 18:52 Co-signature as Attending Physician, Niels Contreras MD I agree with the assessment and [facility] plan of care. Disposition Summary: 11/29/21 09:01 Discharge Ordered Location: Home [facility] Condition: Stable [facility] Diagnosis - UTI/ Urinary tract infection, site not specified [facility] Followup: [facility] - With: Private Physician - When: 2 - 3 days - Reason: Recheck today's complaints, Continuance of care, Re-evaluation by your physician Followup: [facility] - With: Shaji Munguia MD - When: 2 - 3 days - Reason: Recheck today's complaints, Continuance of care, Re-evaluation by your physician Discharge Instructions: - Discharge Summary Sheet rogers - Urinary Tract Infection, Adult rené Forms: - Medication Reconciliation Form rogers - Thank You Letter rogers - Antibiotic Education rogers - Prescription Opioid Use rogers Prescriptions: - Cephalexin 500 mg Oral Capsule - take 1 capsule by ORAL route every 8 hours for 10 days; 30 capsule; Refills: 0, jmm Product Selection Permitted Signatures: Dispatcher [employer] EDNiels Strauss MD MD cha Mickail, Joel, PA PA jmm Peltier, Brian, RN RN bp Itzel Dale RN RN ld1
--- NOTE | 2021-11-29 09:02 | ER ---
Nurse's Notes [facility] Name: Batsheva Al Age: 85 yrs Sex: Female : 1935 Arrival Date: 11/29/2021 Time: 08:10 Bed 18 Private MD: Diagnosis: UTI/ Urinary tract infection, site not specified Presentation: 11/29 08:16 Chief complaint: Patient states: Burning with urination X 1 day. Reports odor. ld1 Coronavirus screen: At this time, the client does not indicate any symptoms associated with coronavirus-19. Ebola Screen: No symptoms or risks identified at this time. Initial Sepsis Screen: Does the patient meet any 2 criteria? No. Patient's initial sepsis screen is negative. Does the patient have a suspected source of infection? No. Patient's initial sepsis screen is negative. Risk Assessment: Do you want to hurt yourself or someone else? Patient reports no desire to harm self or others. Onset of symptoms was November 29, 2021. 08:16 Method Of Arrival: Ambulatory ld1 08:16 Acuity: MORTEZA 3 ld1 Triage Assessment: 08:16 General: Appears in no apparent distress. comfortable, Behavior is calm, cooperative, ld1 appropriate for age. Pain: Denies pain. EENT: No signs and/or symptoms were reported regarding the EENT system. Neuro: Level of Consciousness is awake, alert, obeys commands, Oriented to person, place, time, situation. Cardiovascular: Capillary refill < 3 seconds Patient's skin is warm and dry. Respiratory: Airway is patent Respiratory effort is even, unlabored. GI: Abdomen is flat, non-distended. : Reports burning with urination, pain flank(s). Historical: - Allergies: 08:16 No Known Allergies; ld1 - PMHx: 08:16 COPD; Hypertension; Pneumonia; ld1 - PSHx: 08:16 right rotator cuff; Total abdominal hysterectomy; ld1 - Immunization history:: Adult Immunizations up to date, Client reports receiving the Nestor \T\ Nestor single-dose vaccine. - Social history:: Smoking status: Patient denies any tobacco usage or history of. Patient uses alcohol, occasionally. Screenin:08 Abuse screen: Denies threats or abuse. Denies injuries from another. Nutritional bp screening: No deficits noted. Tuberculosis screening: No symptoms or risk factors identified. Fall Risk None identified. Assessment: 08:20 General: SEE TRIAGE NOTE. bp 09:08 Reassessment: PT D/C HOME AMBULATORY WITH FAMILY, DX WITH UTI. bp Vital Signs: 08:16 BP 155 / 111; Pulse 70; Resp 16; Temp 97.6(O); Pulse Ox 93% on R/A; Weight 70.31 kg; ld1 Height 5 ft. 7 in. (170.18 cm); Pain 0/10; 08:16 Body Mass Index 24.28 (70.31 kg, 170.18 cm) ld1 ED Course: 08:10 Patient arrived in ED. mr 08:16 Arm band placed on right wrist. ld1 08:17 Triage completed. ld1 08:19 Vern Bertrand PA is PHCP. rogers 08:19 Migel Low, RN is Primary Nurse. bp 08:28 Niels Contreras MD is Attending Physician. francisco 09:01 Shaji Munguia MD is Referral Physician. [facility] 09:08 Patient has correct armband on for positive identification. Bed in low position. Call bp light in reach. Side rails up X2. Adult w/ patient. 09:08 No provider procedures requiring assistance completed. Patient did not have IV access bp during this emergency room visit. Administered Medications: 08:39 Drug: Rocephin (cefTRIAXone) 1 grams Route: IM; Site: right gluteus; bp 09:07 Follow up: Response: No adverse reaction bp Medication: 09:08 VIS not applicable for this client. bp Outcome: 09:01 Discharge ordered by . rogers 09:08 Discharged to home ambulatory, with family. bp 09:08 Condition: stable 09:08 Discharge instructions given to patient, Instructed on discharge instructions, follow up and referral plans. medication usage, Demonstrated understanding of instructions, follow-up care, medications, Prescriptions given X 1. 09:09 Patient left the ED. bp Signatures: Niels Contreras MD MD cha Mickail, Joel, PA PA jmm Rivera Omayra mr Migel Low, RN RN bp Itzel Dale RN RN ld1
[2021-11-29 09:23] VITALS: BP 155/111; TEMP 97.6; O2SAT 93
== END 2021-11-29 09:09 | disposition home or self-care (01) ==
LOC: ER 08:08
DX: N39.0 Urinary tract infection, site not specified (principal); I10 Essential (primary) hypertension; J44.9 Chronic obstructive pulmonary disease, unspecified
CPT/HCPCS: 81003; 81015; 87077; 87086; 87088; 87186; 96372; 99283

== ENCOUNTER 2022-02-08 02:49 | Observation (INO) | payer OTHER, BC ==
[2022-02-08] MEDS ORDERED: METHYLPREDNISOLONE 125 MG INJ ONE (03:31)
[2022-02-08] MEDS ORDERED: AMLODIPINE 5 MG TAB ONE (03:31)
[2022-02-08] MEDS ORDERED: CEFTRIAXONE 2000 MG/VIAL ONE (03:31)
[2022-02-08] MEDS ORDERED: LEVALBUTEROL 1.25 MG/3 ML NEB ONE (03:32)
[2022-02-08] MEDS ORDERED: IPRATROPIUM BROM 0.5MG/2.5ML ONE (03:32)
[2022-02-08 04:01] LABS: Absolute Lymphocytes (CBC) 0.7 K/uL (0.7-4.9); Hematocrit 47.2 % (36.0-45.0); Lymphocytes % 9.5 % (15.3-44.8); MPV 7.3 fL (7.6-11.3); RBC Red Blood Cell Count 4.86 M/uL (3.86-4.86)
[2022-02-08 04:05] LABS: Urine Blood Trace-intact (Negative); Urine Glucose Negative (Negative); Urine Protein 1+ (Negative)
[2022-02-08 04:05] LABS: Protime INR 1.41
[2022-02-08 04:10] LABS: Urine Mucus Slight /HPF (None Seen); Urine RBC <5 /HPF (None Seen)
[2022-02-08 04:25] LABS: Albumin 3.7 g/dL (3.4-5.0); Bilirubin Direct 0.5 mg/dL (0-0.2); Bilirubin Total 1.2 mg/dL (0.2-1.0); Magnesium 2.1 mg/dL (1.8-2.4); Protein, Total 7.1 g/dL (6.4-8.2)
[2022-02-08 04:34] LABS: Digoxin Level 0.5 ng/mL (0.80-2.00)
--- NOTE | 2022-02-08 04:44 | ER ---
Nurse's Notes [facility] Name: Batsheva Al Age: 86 yrs Sex: Female : 1935 Arrival Date: 02/08/2022 Time: 02:58 Bed 6 Private MD: Diagnosis: Dyspnea;Essential (primary) hypertension;Headache;COPD/ Chronic obstructive pulmonary disease with (acute) exacerbation;Dysuria;Fever, unspecified;Weakness;Chronic atrial fibrillation;SARS-associated coronavirus as the cause of diseases classified elsewhere Presentation: 02/08 03:09 Chief complaint: Patient's son or daughter states: pt has developed a cough the last bb few days and her "temperature is getting higher" she is also on antibiotics for a UTI. Coronavirus screen: At this time, the client does not indicate any symptoms associated with coronavirus-19. Ebola Screen: No symptoms or risks identified at this time. Initial Sepsis Screen: Does the patient meet any 2 criteria? No. Patient's initial sepsis screen is negative. Does the patient have a suspected source of infection? No. Patient's initial sepsis screen is negative. Risk Assessment: Do you want to hurt yourself or someone else? Patient reports no desire to harm self or others. Onset of symptoms is unknown. 03:09 Method Of Arrival: Wheelchair bb 03:09 Acuity: MORTEZA 2 bb Historical: - Allergies: 03:15 Levofloxacin; bb - Home Meds: 03:15 Metoprolol Tartrate Oral [Active]; Digoxin Oral [Active]; Eliquis oral [Active]; bb - PMHx: 03:15 COPD; Hypertension; Pneumonia; bb - PSHx: 03:15 right rotator cuff; Total abdominal hysterectomy; bb - Immunization history:: Client reports receiving the Nestor \\T\\ Nestor single-dose vaccine. - Social history:: Smoking status: Patient denies any tobacco usage or history of. Screenin:43 Abuse screen: Denies threats or abuse. Denies injuries from another. Nutritional aa9 screening: No deficits noted. Tuberculosis screening: No symptoms or risk factors identified. Fall Risk Gait- Weak (10 pts.). Assessment: 04:00 General: Appears comfortable, well groomed, Behavior is calm, cooperative, appropriate aa9 for age. General: pt low mcclelland's in bed, daughter at bedside, daughter states," She woke me up saying she was coughing really bad, she recently has had high blood pressure readings.". Pain: Denies pain. Neuro: Level of Consciousness is awake, alert, obeys commands, Oriented to person, place, time, situation. Cardiovascular: Patient's skin is warm and dry. Respiratory: Airway is patent Respiratory effort is even, unlabored. GI: No signs and/or symptoms were reported involving the gastrointestinal system. : No signs and/or symptoms were reported regarding the genitourinary system. Derm: Skin with poor turgor. 07:11 General: [phone] Maisha, Zaid. aa9 09:30 Reassessment: customer project manager asked to provide room air sats. Pt ambulated to bedside ld1 commode - 90% RA. Vital Signs: 03:03 BP 189 / 115; Pulse 85; Resp 18 S; Pulse Ox 94% on R/A; aa9 03:09 BP 187 / 115; Pulse 97; Resp 20 S; Temp 99.1(O); Pulse Ox 93% on R/A; Weight 69.85 kg bb (R); Height 5 ft. 7 in. (170.18 cm) (R); 03:15 BP 184 / 120; Pulse 94; Resp 17 S; Pulse Ox 92% on R/A; aa9 04:45 BP 133 / 90; Pulse 102; Resp 18 S; Pulse Ox 94% on 2 lpm NC; Pain 0/10; aa9 04:54 BP 174 / 90; Pulse 101; aa9 06:15 BP 159 / 100; Pulse 96; Resp 17 S; Pulse Ox 95% on 2 lpm NC; aa9 07:00 BP 165 / 135; Pulse 101; Resp 17 S; Pulse Ox 95% on 2 lpm NC; Pain 0/10; aa9 09:22 BP 138 / 77; Pulse 76; Resp 22; Pulse Ox 90% on R/A; ld1 09:23 BP 135 / 75; Pulse 74; Resp 21; Pulse Ox 91% on R/A; ld1 03:09 Body Mass Index 24.12 (69.85 kg, 170.18 cm) bb Etoile Coma Score: 03:24 Eye Response: spontaneous(4). Verbal Response: oriented(5). Motor Response: obeys francisco commands(6). Total: 15. ED Course: 02:58 Patient arrived in ED. ja2 02:59 Niels Contreras MD is Attending Physician. francisco 03:11 Triage completed. bb 03:15 Arm band placed on Patient placed in an exam room, on a stretcher. Family accompanied bb patient. 03:26 Richelle Muhammad, RN is Primary Nurse. aa9 03:54 Inserted saline lock: 20 gauge in right antecubital area, using aseptic technique. aa9 Blood collected. 04:05 Troponin HS Sent. aa9 04:05 PT-INR Sent. aa9 04:05 NT PRO-BNP Sent. aa9 04:05 Magnesium Sent. aa9 04:05 LFT's Sent. aa9 04:05 Basic Metabolic Panel Sent. aa9 04:13 XRAY Chest (1 view) In Process Unspecified. EDMS 04:42 Franklyn Dolan MD is Hospitalizing Provider. [facility] 04:53 SARS-COV-2 RT PCR (Document "Date of Onset" if Symptomatic) Sent. aa9 04:53 Flu Sent. aa9 07:06 Patient has correct armband on for positive identification. Placed in gown. Bed in low aa9 position. Call light in reach. Side rails up X2. Client placed on continuous cardiac and pulse oximetry monitoring. NIBP monitoring applied. Noise minimized. Lights dimmed. Assisted to bedside commode. 07:07 No provider procedures requiring assistance completed. Patient admitted, IV remains in aa9 place. Administered Medications: 03:52 Drug: Rocephin (cefTRIAXone) 2 grams Route: IV; Rate: per protocol; Site: right aa9 antecubital; 04:54 Follow up: Response: No adverse reaction; IV Status: Completed infusion; IV Intake: [id number] 03:54 Drug: Xopenex (levalbuterol) 2.5 mg Route: Inhalation; aa9 03:54 Drug: AtroVENT (ipratropium) Aerosol 0.5 mg Route: Inhalation; aa9 04:54 Follow up: Response: No adverse reaction aa9 03:58 Drug: SOLU-Medrol (methylPrednisoLONE) 125 mg Route: IVP; Site: right antecubital; aa9 04:54 Follow up: Response: No adverse reaction aa9 04:05 Drug: Norvasc (amlodipine) 5 mg Route: PO; aa9 04:54 Follow up: BP 174 / 90; Pulse 101 bpm; Response: No adverse reaction aa9 07:03 Drug: Digoxin 0.25 mg Route: IVP; Site: right antecubital; aa9 07:03 Drug: Zithromax (azithromycin) 500 mg Route: IVPB; Infused Over: 1 hrs; Site: right aa9 antecubital; 07:03 Drug: Pepcid (famotidine) 20 mg Route: IVP; Site: right antecubital; aa9 Medication: 07:07 VIS not applicable for this client. aa9 Intake: 04:54 IV: 10ml; Total: 10ml. aa9 Outcome: 04:43 Decision to Hospitalize by Provider. francisco 07:07 Admitted to ER Hold. Please see [facility] for further documentation. aa9 07:07 Condition: stable 07:07 Instructed on the need for admit. 10:51 Patient left the ED. eb Signatures: Dispatcher [employer] EDMS Niels Contreras MD MD cha Ballard, Brenda, RN RN Laurie Leach Lauren, RN RN lux1 Kaity Khalil Aylin, RN RN aa9
--- NOTE | 2022-02-08 04:44 | EDPHYS ---
Physician Documentation [facility] Name: Batsheva Al Age: 86 yrs Sex: Female : 1935 Arrival Date: 02/08/2022 Time: 02:58 Bed 6 Private MD: GIN Physician Niels Contreras HPI: 02/08 03:20 This 86 yrs old Female presents to ER via Wheelchair with complaints of Cough, General francisco Weakness, Fever. 03:20 The patient or guardian reports cough, difficulty breathing. Onset: The francisco symptoms/episode began/occurred 2 day(s) ago. Severity of symptoms: At their worst the symptoms were mild, moderate, in the emergency department the symptoms are unchanged. Modifying factors: The symptoms are alleviated by nothing, the symptoms are aggravated by nothing. Associated signs and symptoms: The patient has no apparent associated signs or symptoms. The patient has not experienced similar symptoms in the past. Historical: - Allergies: 03:15 Levofloxacin; bb - Home Meds: 03:15 Metoprolol Tartrate Oral [Active]; Digoxin Oral [Active]; Eliquis oral [Active]; bb - PMHx: 03:15 COPD; Hypertension; Pneumonia; bb - PSHx: 03:15 right rotator cuff; Total abdominal hysterectomy; bb - Immunization history:: Client reports receiving the Nestor \\T\\ Nestor single-dose vaccine. - Social history:: Smoking status: Patient denies any tobacco usage or history of. ROS: 03:21 Positive for urinary frequency, burning with urination, difficulty urinating. francisco 03:21 Constitutional: Negative for fever, chills, and weight loss, Eyes: Negative for injury, pain, redness, and discharge, ENT: Negative for injury, pain, and discharge, Neck: Negative for injury, pain, and swelling, Cardiovascular: Negative for chest pain, palpitations, and edema, Abdomen/GI: Negative for abdominal pain, nausea, vomiting, diarrhea, and constipation, Back: Negative for injury and pain, MS/Extremity: Negative for injury and deformity, Skin: Negative for injury, rash, and discoloration, Psych: Negative for depression, anxiety, suicide ideation, homicidal ideation, and hallucinations, Allergy/Immunology: Negative for hives, rash, and allergies, Endocrine: Negative for neck swelling, polydipsia, polyuria, polyphagia, and marked weight changes, Hematologic/Lymphatic: Negative for swollen nodes, abnormal bleeding, and unusual bruising. 03:21 Respiratory: Positive for cough, shortness of breath, wheezing, expiratory. 03:21 : Positive for hematuria, burning with urination, difficulty urinating. 03:21 Neuro: Positive for headache. Exam: 03:21 Constitutional: This is a well developed, well nourished patient who is awake, alert, francisco and in no acute distress. Head/Face: Normocephalic, atraumatic. Eyes: Pupils equal round and reactive to light, extra-ocular motions intact. Lids and lashes normal. Conjunctiva and sclera are non-icteric and not injected. Cornea within normal limits. Periorbital areas with no swelling, redness, or edema. ENT: Nares patent. No nasal discharge, no septal abnormalities noted. Tympanic membranes are normal and external auditory canals are clear. Oropharynx with no redness, swelling, or masses, exudates, or evidence of obstruction, uvula midline. Mucous membranes moist. Neck: Trachea midline, no thyromegaly or masses palpated, and no cervical lymphadenopathy. Supple, full range of motion without nuchal rigidity, or vertebral point tenderness. No Meningismus. Chest/axilla: Normal chest wall appearance and motion. Nontender with no deformity. No lesions are appreciated. Cardiovascular: Regular rate and rhythm with a normal S1 and S2. No gallops, murmurs, or rubs. Normal PMI, no JVD. No pulse deficits. Abdomen/GI: Soft, non-tender, with normal bowel sounds. No distension or tympany. No guarding or rebound. No evidence of tenderness throughout. Back: No spinal tenderness. No costovertebral tenderness. Full range of motion. Female : Normal external genitalia. Skin: Warm, dry with normal turgor. Normal color with no rashes, no lesions, and no evidence of cellulitis. MS/ Extremity: Pulses equal, no cyanosis. Neurovascular intact. Full, normal range of motion. Neuro: Awake and alert, GCS 15, oriented to person, place, time, and situation. Cranial nerves II-XII grossly intact. Motor strength 5/5 in all extremities. Sensory grossly intact. Cerebellar exam normal. Normal gait. Psych: Awake, alert, with orientation to person, place and time. Behavior, mood, and affect are within normal limits. 03:23 Respiratory: the patient does not display signs of respiratory distress, Respirations: francisco normal, Breath sounds: bronchial sounds, that are mild, are scattered, decreased breath sounds, that are mild, are scattered, rhonchi, that are mild, are scattered, Respiratory rate: 20 04:44 ECG was reviewed by the Attending Physician. francisco Vital Signs: 03:03 BP 189 / 115; Pulse 85; Resp 18 S; Pulse Ox 94% on R/A; aa9 03:09 BP 187 / 115; Pulse 97; Resp 20 S; Temp 99.1(O); Pulse Ox 93% on R/A; Weight 69.85 kg bb (R); Height 5 ft. 7 in. (170.18 cm) (R); 03:15 BP 184 / 120; Pulse 94; Resp 17 S; Pulse Ox 92% on R/A; aa9 04:45 BP 133 / 90; Pulse 102; Resp 18 S; Pulse Ox 94% on 2 lpm NC; Pain 0/10; aa9 04:54 BP 174 / 90; Pulse 101; aa9 06:15 BP 159 / 100; Pulse 96; Resp 17 S; Pulse Ox 95% on 2 lpm NC; aa9 07:00 BP 165 / 135; Pulse 101; Resp 17 S; Pulse Ox 95% on 2 lpm NC; Pain 0/10; aa9 09:22 BP 138 / 77; Pulse 76; Resp 22; Pulse Ox 90% on R/A; ld1 09:23 BP 135 / 75; Pulse 74; Resp 21; Pulse Ox 91% on R/A; ld1 03:09 Body Mass Index 24.12 (69.85 kg, 170.18 cm) Gideon Coma Score: 03:24 Eye Response: spontaneous(4). Verbal Response: oriented(5). Motor Response: obeys [facility] commands(6). Total: 15. MDM: 02:59 Patient medically screened. [facility] 03:24 Differential diagnosis: hypertensive headache, hyponatremia, neoplasm, subarachnoid francisco bleed, temporal arteritis, tension headache, traumatic injuries, trigeminal neuralgia, vasomotor headache, urinary tract infection. Differential Diagnosis: Bronchitis Influenza Upper Respiratory Infection Sinusitis Pharyngitis Otitis Media Asthma Exacerbation Viral Syndrome Pneumonia. Data reviewed: vital signs, nurses notes, lab test result(s), EKG, radiologic studies, CT scan, plain films. Data interpreted: bus monitor: rate is 97 beats/min, rhythm is regular, Pulse oximetry: on room air is 93 %. Test interpretation: by ED physician or midlevel provider: ECG, plain radiologic studies. Counseling: I had a detailed discussion with the patient and/or guardian regarding: the historical points, exam findings, and any diagnostic results supporting the discharge/admit diagnosis, lab results, radiology results, the need for outpatient follow up, the need for further work-up and treatment in the hospital. Medical screen evaluation completed. [facility] emergency medical condition absent. 02/08 03:19 Order name: Basic Metabolic Panel; Complete Time: 04:38 [facility] 02/08 03:19 Order name: CBC with Diff; Complete Time: 04:38 [facility] 02/08 03:19 Order name: LFT's; Complete Time: 04:38 [facility] 02/08 03:19 Order name: Magnesium; Complete Time: 04:38 [facility] 02/08 03:19 Order name: NT PRO-BNP; Complete Time: 04:38 [facility] 02/08 03:19 Order name: PT-INR; Complete Time: 04:38 [facility] 02/08 03:19 Order name: Troponin HS; Complete Time: 04:38 [facility] 02/08 03:19 Order name: Lipase; Complete Time: 04:38 [facility] 02/08 03:19 Order name: Urine Microscopic Only; Complete Time: 04:38 [facility] 02/08 03:19 Order name: Digoxin; Complete Time: 04:38 [facility] 02/08 04:06 Order name: Urine Dipstick-Ancillary; Complete Time: 04:38 EDCT 02/08 04:40 Order name: Flu [facility] 02/08 04:40 Order name: SARS-COV-2 RT PCR (Document "Date of Onset" if Symptomatic) [facility] 02/08 05:38 Order name: Influenza Screen (A ; Complete Time: 05:39 EDMS 02/08 03:19 Order name: XRAY Chest (1 view) [facility] 02/08 03:19 Order name: EKG; Complete Time: 03:20 [facility] 02/08 03:19 Order name: Cardiac monitoring; Complete Time: 04:05 [facility] 02/08 03:19 Order name: EKG - Nurse/Tech; Complete Time: 04:30 [facility] 02/08 03:19 Order name: IV Saline Lock; Complete Time: 04:05 [facility] 02/08 03:19 Order name: CT Head Brain wo Cont [facility] 02/08 03:26 Order name: CT Stone Protocol [facility] 02/08 05:41 Order name: SARS-COV-2 RT PCR; Complete Time: 06:19 EDMS 02/08 03:19 Order name: Labs collected and sent; Complete Time: 04:05 [facility] 02/08 03:19 Order name: O2 Per Protocol; Complete Time: 04:05 [facility] 02/08 03:19 Order name: O2 Sat Monitoring; Complete Time: 04:05 [facility] 02/08 03:19 Order name: Urine Dipstick-Ancillary (obtain specimen); Complete Time: 04:05 [facility] EC:44 Rate is 95 beats/min. Rhythm is irregularly irregular. QRS [place] is Normal. [place] interval francisco is normal. QRS interval is normal. QT interval is normal. No Q waves. T waves are Normal. No ST changes noted. Clinical impression: Atrial Fibrillation and No evidence of ischemia. Interpreted by me. Reviewed by me. Administered Medications: 03:52 Drug: Rocephin (cefTRIAXone) 2 grams Route: IV; Rate: per protocol; Site: right aa9 antecubital; 04:54 Follow up: Response: No adverse reaction; IV Status: Completed infusion; IV Intake: [id number] 03:54 Drug: Xopenex (levalbuterol) 2.5 mg Route: Inhalation; aa9 03:54 Drug: AtroVENT (ipratropium) Aerosol 0.5 mg Route: Inhalation; aa9 04:54 Follow up: Response: No adverse reaction aa9 03:58 Drug: SOLU-Medrol (methylPrednisoLONE) 125 mg Route: IVP; Site: right antecubital; aa9 04:54 Follow up: Response: No adverse reaction aa9 04:05 Drug: Norvasc (amlodipine) 5 mg Route: PO; aa9 04:54 Follow up: BP 174 / 90; Pulse 101 bpm; Response: No adverse reaction aa9 07:03 Drug: Digoxin 0.25 mg Route: IVP; Site: right antecubital; aa9 07:03 Drug: Zithromax (azithromycin) 500 mg Route: IVPB; Infused Over: 1 hrs; Site: right aa9 antecubital; 07:03 Drug: Pepcid (famotidine) 20 mg Route: IVP; Site: right antecubital; aa9 Disposition Summary: 02/08/22 04:43 Hospitalization Ordered Hospitalization Status: Observation francisco Provider: Franklyn Dolan cha Condition: Fair francisco Problem: new francisco Symptoms: have improved francisco Bed/Room Type: Standard francisco Location: Telemetry/MedSurg (observation)(02/08/22 09:30) dw Room Assignment: 414(02/08/22 09:30) dw Diagnosis - Dyspnea francisco - Essential (primary) hypertension francisco - Headache francisco - COPD/ Chronic obstructive pulmonary disease with (acute) exacerbation francisco - Dysuria francisco - Fever, unspecified francisco - Weakness francisco - Chronic atrial fibrillation francisco - SARS-associated coronavirus as the cause of diseases classified elsewhere francisco Forms: - Medication Reconciliation Form francisco - SBAR form francisco Signatures: Dispatcher [employer] EDMS Maira Downs RN Tiffanie Cloud RN Niels Dalton MD MD cha Ballard, Brenda, RN RN bb Avalos, Aylin, RN RN aa9 Brown, Sophia, PA-C PAGabrielle sb4 Corrections: (The following items were deleted from the chart) 03:24 03:21 Respiratory: the patient does not display signs of respiratory distress, francisco Respirations: normal, Breath sounds: decreased breath sounds, that are mild, are scattered, rhonchi, that are mild, stridor, that is mild, Respiratory rate: 97 francisco 05:42 04:43 Telemetry/MedSurg (observation) francisco mw 05:42 04:43 francisco mw 09:30 05:42 [facility] ER HOLD dw 09:30 05:42 ERHOLD- mw dw
--- NOTE | 2022-02-08 05:31 | P.HP ---
Certification for Inpatient Patient admitted to: Observation With expected LOS: <2 Midnights Patient will require the following post-hospital care: None Practitioner: I am a practitioner with admitting privileges, knowledge of patient current condition, hospital course, and medical plan of care. Services: Services provided to patient in accordance with Admission requirements found in Title 42 Section 412.3 of the Code of Federal Regulations Patient History Date of Service: 02/08/22 Reason for admission: COPD, Hypoxia History of Present Illness: Patient is an 86-year-old female with history of hypertension, COPD, and afib on eliquis who presented to the ED with complaints of cough, shortness of breath, generalized weakness and fever. Patient reports that she has been feeling under the weather for a few days now, but tonight she noticed that her temp was increasing, her BP was high, cough was getting worse, and daughter said she was saturating 89% on RA while sleeping. She was 92% on RA upon arrival to ED and placed on supplemental O2. EKG showed afib with controlled rate. Chest xray negative. CT abdomen negative. Labs without significant abnormalities. COVID positive. flu negative. She was given a breathing treatment, rocephin, and solumedrol in the ED. ED provider wishes to admit patient for observation. Allergies No Known Allergies Allergy (Unverified 11/20/17 11:17) Home Medications: Amlodipine [Norvasc*] 5 mg PO DAILY 09/17/21 Apixaban [Eliquis] 5 mg PO BID 09/17/21 Atorvastatin Calcium [Lipitor] 40 mg PO BEDTIME 09/17/21 Benzonatate [Tessalon Perle*] 100 mg PO TID PRN 09/17/21 Budesonide/Formoterol Fumarate [Symbicort 160-4.5 Mcg Inhaler] 2 puff IN BID 09/17/21 Digoxin [Lanoxin*] 1 tab PO DAILY 09/17/21 Melatonin [Melatonin*] 3 mg PO BEDTIME PRN 09/17/21 Metoprolol Tartrate [Lopressor] 100 mg PO BID 09/17/21 Ondansetron [Zofran (Odt)*] 4 mg PO Q8H PRN 09/17/21 Senosides [Senokot*] 2 tab PO BEDTIME PRN 09/17/21 - Past Medical/Surgical History Diabetic: No -: HTN -: Tricuspid valve regurgitation -: Pneumonia -: Coronary artery clot removal -: Appe -: INGUINAL HERNIA REPAIR -: BUNION REMOVAL (R) -: Bilateral lens implant -: Bilateral cataract surgery -: Hysterectomy Psychosocial/ Personal History: Patient lives at home with her daughter. - Family History Father -: Cancer Mother -: Heart disease - Social History Smoking Status: Former smoker Alcohol use: No CD- Drugs: No Caffeine use: No Place of Residence: Home Review of Systems General: Fever, Weakness Respiratory: Cough, Shortness of Breath Physical Examination - Physical Exam General: Alert, In no apparent distress HEENT: Atraumatic, PERRLA, EOMI, Sclerae nonicteric Neck: Supple, 2+ carotid pulse no bruit, No LAD, Without JVD or thyroid abnormality Respiratory: Clear to auscultation bilaterally, Normal air movement Cardiovascular: Regular rate/rhythm, Normal S1 S2 Gastrointestinal: Normal bowel sounds, No tenderness Musculoskeletal: No tenderness Integumentary: No rashes Neurological: Normal speech, Normal strength at 5/5 x4 extr, Normal tone, Normal affect - Studies Laboratory Data (last 24 hrs) 02/08/22 03:45: PT 15.5 H, INR 1.41 02/08/22 03:45: WBC 7.20, Hgb 16.1 H, Hct 47.2 H, Plt Count 213 02/08/22 03:45: Sodium 135 L, Potassium 4.0, BUN 17, Creatinine 0.95, Glucose 116 H, Magnesium 2.1, Total Bilirubin 1.2 H, AST 47 H, ALT 75, Alkaline Phosphatase 65, Lipase 96 Assessment and Plan - Problems (Diagnosis) (1) COVID Current Visit: Yes Status: Acute (2) Hypoxia Current Visit: Yes Status: Acute (3) Afib Current Visit: Yes Status: Chronic Qualifiers: Atrial fibrillation type: paroxysmal Qualified Code(s): I48.0 - Paroxysmal atrial fibrillation (4) COPD (chronic obstructive pulmonary disease) Current Visit: Yes Status: Chronic Qualifiers: COPD type: chronic bronchitis Chronic bronchitis type: unspecified Qualified Code(s): J42 - Unspecified chronic bronchitis (5) Hypertension Current Visit: Yes Status: Chronic Qualifiers: Hypertension type: primary hypertension Qualified Code(s): I10 - Essential (primary) hypertension - Plan -Patient is admitted for observation -Symptoms are likely attributed to COVID-19 -Continue supportive measures: antitussives, gentle IV hydration, breathing treatments supplemental O2, vitamin C, zinc -No indication for antibiotics at this time. Received 2g rocephin in ED as well as solumedrol -access services assistant consult for home oxygen evaluation -Head CT pending -Monitor and replete electrolytes per protocol -Reconcile and continue home medications -Eliquis for VTE ppx -Full code Discharge Plan: Home Plan to discharge in: 24 Hours - Advance Directives Does patient have a Living Will: Yes Does patient have a Durable POA for Healthcare: Yes - Code Status/Comfort Care Code Status Assessed: Yes (Full) Critical Care: No Time Spent Managing Pts Care (In Minutes): 50
[2022-02-08] MEDS ORDERED: ACETAMINOPHEN 325 MG TABLET PO PRN (05:56)
[2022-02-08] MEDS ORDERED: BENZONATATE 100 MG CAP PO PRN (05:56)
[2022-02-08] MEDS ORDERED: ALBUTEROL 2.5 MG/3 ML NEB SOL NEB PRN (05:56)
[2022-02-08] MEDS ORDERED: HYDRALAZINE HCL 20 MG/ML VIAL IV PRN (05:56)
[2022-02-08] MEDS ORDERED: ONDANSETRON 4 MG/2 ML VIAL IV PRN (05:56)
[2022-02-08] MEDS ORDERED: NA CHLORIDE 0.9% 1,000 ML IV SCH ×2 (06:00→14:00)
[2022-02-08 06:17] VITALS: BMI 24.1
[2022-02-08] MEDS ORDERED: FAMOTIDINE 20 MG/2 ML VIAL IV ONE (06:44)
[2022-02-08] MEDS ORDERED: DIGOXIN 0.25 MG/ML AMP ONE (06:45)
[2022-02-08] MEDS ORDERED: AZITHROMYCIN 500 MG INJ IVPB ONE (06:45)
[2022-02-08] MEDS ORDERED: NA CHLORIDE 0.9% 250 ML ONE (06:45)
[2022-02-08] MEDS ORDERED: HOME MED 1 EA UNK (Metoprolol Tartrate [Lopressor] 100 MG Tablet) PO SCH (13:08)
--- NOTE | 2022-02-08 13:14 | P.PN ---
Date of Service: 02/08/22 Patient seen and examined. She states she feels better. Oxygen saturation is borderline. No fever. Chest x-ray reviewed and shows no infiltrate. COVID 19 infection with malaise. Chronic atrial fibrillation Chronic anticoagulation. Plan: Continue supportive measures. Continue monitoring on room air. Resume home medications for atrial fibrillation Resume Eliquis. Diet as tolerated.
[2022-02-08] MEDS: DIGOXIN 0.125 MG TABLET PO SCH (14:45)
[2022-02-08] MEDS: APIXABAN 5 MG TABLET PO SCH ×2 (14:45→21:43)
[2022-02-08] MEDS: METOPROLOL TAR 50 MG TAB PO SCH ×2 (14:45→21:43)
[2022-02-08] MEDS: ZINC SULFATE 220 MG CAP PO SCH (14:46)
[2022-02-08] MEDS: ASCORBIC ACID 500 MG TABLET PO SCH (14:47)
[2022-02-08 21:00] VITALS: O2SAT 93
[2022-02-09 03:45] LABS: Absolute Lymphocytes (CBC) 1.2 K/uL (0.7-4.9); Hematocrit 43.5 % (36.0-45.0); Lymphocytes % 16.3 % (15.3-44.8); MCV 97.9 fL (80-100); MPV 7.7 fL (7.6-11.3); RBC Red Blood Cell Count 4.45 M/uL (3.86-4.86)
[2022-02-09 03:58] LABS: Magnesium 2.2 mg/dL (1.8-2.4); Phosphorus 3.1 mg/dL (2.5-4.9); Potassium 3.9 mmol/L (3.5-5.1)
[2022-02-09] MEDS ORDERED: POTASSIUM CL SA 10 MEQ TAB PO ONE (07:37)
--- NOTE | 2022-02-09 07:41 | P.DS ---
Admission Date: 02/08/22 Discharge Date: 02/09/22 Disposition: ROUTINE DISCHARGE Discharge Condition: FAIR Reason for Admission: COPD, Hypoxia - Problems (1) COVID Status: Acute (2) Afib Status: Chronic Qualifiers: Atrial fibrillation type: paroxysmal Qualified Code(s): I48.0 - Paroxysmal atrial fibrillation (3) COPD (chronic obstructive pulmonary disease) Status: Chronic Qualifiers: COPD type: chronic bronchitis Chronic bronchitis type: unspecified Qualified Code(s): J42 - Unspecified chronic bronchitis (4) Hypertension Status: Chronic Qualifiers: Hypertension type: primary hypertension Qualified Code(s): I10 - Essential (primary) hypertension Brief History of Present Illness: Patient is an 86-year-old female with history of hypertension, COPD, and afib on eliquis who presented to the ED with complaints of cough, shortness of breath, generalized weakness and fever. Patient reports that she was feeling under the weather for a few days. She noticed that her temp was increasing, her BP was high, cough was getting worse, and daughter said she was saturating 89% on RA while sleeping. She was 92% on RA upon arrival to ED and placed on supplemental O2. EKG showed afib with controlled rate. Chest xray negative. CT abdomen negative. Labs without significant abnormalities. COVID positive. flu negative. She was given a breathing treatment, rocephin, and solumedrol in the ED and hospitalized for further management. Hospital Course: Patient placed under observation on the medical floor and treated with supportive measures-oxygen supplementation and IV fluid. Patient home medications for atrial fibrillation, Eliquis for anticoagulation were continued during the hospital stay. Patient symptoms improved within 24 hours and has been asymptomatic today. She does not have pneumonia and she is asymptomatic from the COVID-19 infection. Patient is deemed stable for discharge. Vital Signs/Physical Exam: Temp Pulse Resp BP Pulse Ox 97.2 F 69 16 162/77 H 96 02/09/22 05:48 02/09/22 05:48 02/09/22 05:48 02/09/22 05:48 02/09/22 05:48 General: Alert, In no apparent distress, Oriented x3 HEENT: Mucous membr. moist/pink Neck: Supple, JVD not distended Respiratory: Clear to auscultation bilaterally, Normal air movement Cardiovascular: No edema, Normal S1 S2, Irregular heart rate/rhythm Gastrointestinal: Soft and benign, Non-distended, No tenderness Musculoskeletal: No swelling Integumentary: No rashes, No cyanosis Neurological: Normal strength at 5/5 x4 extr Laboratory Data at Discharge: WBC 7.20 K/uL (4.3-10.9) 02/09/22 03:12 Hgb 14.7 g/dL (12.0-15.0) D 02/09/22 03:12 Hct 43.5 % (36.0-45.0) 02/09/22 03:12 Plt Count 195 K/uL (152-406) 02/09/22 03:12 PT 15.5 SECONDS (9.5-12.5) H 02/08/22 03:45 INR 1.41 02/08/22 03:45 Sodium 139 mmol/L (136-145) 02/09/22 03:12 Potassium 3.9 mmol/L (3.5-5.1) 02/09/22 03:12 BUN 20 mg/dL (7-18) H 02/09/22 03:12 Creatinine 0.82 mg/dL (0.55-1.3) 02/09/22 03:12 Glucose 112 mg/dL (74-106) H 02/09/22 03:12 Phosphorus 3.1 mg/dL (2.5-4.9) 02/09/22 03:12 Magnesium 2.2 mg/dL (1.8-2.4) 02/09/22 03:12 Total Bilirubin 1.2 mg/dL (0.2-1.0) H 02/08/22 03:45 AST 47 U/L (15-37) H 02/08/22 03:45 ALT 75 U/L (12-78) 02/08/22 03:45 Alkaline Phosphatase 65 U/L (45-117) 02/08/22 03:45 Lipase 96 U/L (73-393) 02/08/22 03:45 Home Medications: Apixaban [Eliquis] 5 mg PO BID 09/17/21 Digoxin [Lanoxin*] 0.5 tab PO DAILY 09/17/21 Metoprolol Tartrate [Lopressor] 100 mg PO BID 09/17/21 Ascorbic Acid [Vitamin C*] 500 mg PO BID #60 tab 02/09/22 Benzonatate [Tessalon Perle*] 200 mg PO TID PRN #30 cap 02/09/22 Zinc Sulfate [Zinc Sulfate*] 220 mg PO DAILY #30 cap 02/09/22 New Medications: Benzonatate [Tessalon Perle*] 200 mg PO TID PRN #30 cap PRN Reason: Cough Ascorbic Acid [Vitamin C*] 500 mg PO BID #60 tab Zinc Sulfate [Zinc Sulfate*] 220 mg PO DAILY #30 cap Diet: AHA Activity: Fall precautions Followup: ARLEY TUBBS [Primary Care Provider] - 1-2 Weeks
[2022-02-09 08:35] VITALS: BP 181/91; TEMP 97.1
[2022-02-09] MEDS: APIXABAN 5 MG TABLET PO SCH (09:31)
[2022-02-09] MEDS: METOPROLOL TAR 50 MG TAB PO SCH (09:31)
[2022-02-09] MEDS: ASCORBIC ACID 500 MG TABLET PO SCH (09:31)
[2022-02-09] MEDS: ZINC SULFATE 220 MG CAP PO SCH (09:32)
[2022-02-09] MEDS: DIGOXIN 0.125 MG TABLET PO SCH (09:32)
--- NOTE | 2022-02-09 15:10 | RAD REPORT ---
EXAM DESCRIPTION: CT - Stone Protocol - 02/08/2022 4:46 am CLINICAL HISTORY: The patient is 86 years old and is Female; FLANK TECHNIQUE: Axial computed tomography images of the abdomen and pelvis without intravenous contrast. Sagittal and coronal reformatted images were created and reviewed. This CT exam was performed usi ng one or more of the following dose reduction techniques: automated exposure control, adjustment o f the mA and/or kV according to patient size, and/or use of iterative reconstruction technique. COMPARISON: No relevant prior studies available. FINDINGS: Lung bases: Unremarkable. No mass. No consolidation. ABDOMEN: Liver: Unremarkable. Gallbladder and bile ducts: Gallbladder is surgically absent. No ductal dilation. Pancreas: Unremarkable. No ductal dilation. Spleen: Unremarkable. No splenomegaly. Adrenals: Unremarkable. No mass. Kidneys and ureters: Unremarkable. No obstructing stones. No hydronephrosis. Stomach and bowel: Scattered colonic diverticula. No obstruction. No mucosal thickening. PELVIS: Appendix: No findings to suggest acute appendicitis. Bladder: Unremarkable. Reproductive: Uterus is not seen. ABDOMEN and PELVIS: Intraperitoneal space: Unremarkable. No free air. No significant fluid collection. Bones/joints: Disc space narrowing with degenerative endplate changes in the spine. No acute fracture. No dislocation. Soft tissues: Unremarkable. Vasculature: Scattered atherosclerotic vascular calcifications. No abdominal aortic aneurysm. Lymph nodes: Unremarkable. No enlarged lymph nodes. IMPRESSION: No acute finding in the abdomen/pelvis. Electronically signed by: Kevin Valles MD 02/08/2022 5:08 AM CDT Due to temporary technical issues with the PACS/Fluency reporting system, reports are being signed by the in house radiologists without review as a courtesy to insure prompt reporting. The interpreting radiologist is fully responsible for the content of the report.
--- NOTE | 2022-02-09 15:12 | RAD REPORT ---
EXAM DESCRIPTION: CT - Head Brain Wo Cont - 02/08/2022 4:46 am CLINICAL HISTORY: Headache, new or worsening COMPARISON: CT Head/Brain Without Contrast 09/10/2021 TECHNIQUE: Head/brain axial images acquired without contrast. Coronal and sagittal reformats created . Exam performed according to departmental dose-optimization program which includes automated exposur e control, adjustment of mA and/or kV according to patient size, and/or use of iterative reconstructi on technique. FINDINGS: No midline shift, mass effect, intracranial hemorrhage, or hydrocephalus. Interval development of moderate-sized right frontal lobe markedly hypodense abnormality and focal ce rebral volume loss. Mild hypodense periventricular cerebral white matter abnormality. CSF spaces appear overall mildly enlarged likely representing age-appropriate cerebral volume loss. Paranasal sinuses clear. Mastoid air cells clear. No skull fracture or significant skull lesion. Calcified atherosclerotic intracranial internal carotid and vertebral arteries. Both lenses show postsurgical changes. IMPRESSION: 1. Interval development of moderate-sized right frontal lobe encephalomalacia. 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 2. Mild cerebral white matter disease most likely represents chronic small vessel ischemia. Electronically signed by: Kenneth Hill MD 02/08/2022 5:50 AM CDT Due to temporary technical issues with the PACS/Fluency reporting system, reports are being signed by the in house radiologists without review as a courtesy to insure prompt reporting. The interpreting radiologist is fully responsible for the content of the report.
--- NOTE | 2022-02-09 15:36 | RAD REPORT ---
EXAM DESCRIPTION: RAD - Chest Single View - 02/08/2022 4:11 am CLINICAL HISTORY: The patient is 86 years old and is Female; COUGH TECHNIQUE: Frontal view of the chest. COMPARISON: No relevant prior studies available. FINDINGS: Lungs: Mildly prominent interstitial markings. No consolidation. Pleural space: Unremarkable. No pneumothorax. Heart: Unremarkable. Mediastinum: Unremarkable. Bones/joints: Unremarkable. IMPRESSION: Mildly prominent interstitial markings. No consolidation. Electronically signed by: Kevin Valles MD 02/08/2022 5:02 AM CDT Due to temporary technical issues with the PACS/Fluency reporting system, reports are being signed by the in house radiologists without review as a courtesy to insure prompt reporting. The interpreting radiologist is fully responsible for the content of the report.
--- NOTE | 2022-02-09 18:41 | EKG ---
Test Date: 2022-02-08 Test Time: 04:14:37 Insulation Worker Apprentice: ARIANNA MEASUREMENT RESULTS: Intervals: Rate: 95 IA: QRSD: 130 QT: 356 QTc: 447 [place]: P: IA: QRS: 118 T: -35 INTERPRETIVE STATEMENTS: Atrial fibrillation Right bundle branch block Septal infarct, age undetermined T wave abnormality, consider inferior ischemia Abnormal ECG Compared to ECG 02/08/2022 04:11:09 Myocardial infarct finding now present T-wave abnormality still present Possible ischemia still present Electronically Signed On 02-09-22 18:38:02 CDT by Javon Valiente
--- NOTE | 2022-02-09 18:41 | EKG ---
Test Date: 2022-02-08 Test Time: 04:11:09 Farm Rancher: ARIANNA MEASUREMENT RESULTS: Intervals: Rate: 101 AR: QRSD: 134 QT: 352 QTc: 456 Romeo: P: AR: QRS: 126 T: -33 INTERPRETIVE STATEMENTS: Atrial fibrillation with rapid ventricular response Right bundle branch block T wave abnormality, consider inferior ischemia Abnormal ECG Compared to ECG 09/09/2021 07:47:44 T-wave abnormality now present Possible ischemia now present Sinus rhythm no longer present Electronically Signed On 02-09-22 18:38:07 CDT by Javon Valiente
== END 2022-02-09 09:55 | disposition home or self-care (01) ==
LOC: ER 02:49 → ERHOLD 05:26 → 4TH 10:37
PROVIDERS: ADMIT Internal Medicine; ATTEND Internal Medicine
DX: J44.1 Chronic obstructive pulmonary disease with (acute) exacerbation (principal); U07.1 COVID-19; I10 Essential (primary) hypertension; I48.0 Paroxysmal atrial fibrillation; R09.02 Hypoxemia; Z79.01 Long term (current) use of anticoagulants; Z80.9 Family history of malignant neoplasm, unspecified; Z82.49 Family history of ischemic heart disease and other diseases of the circulatory system; Z87.891 Personal history of nicotine dependence
CPT/HCPCS: 96365; 93005 ×2; 85025 ×2; 80048 ×2; 36415 ×2; 83735 ×2; 84100; 85610; 80162; 82947; 80076; 84484; 83690; 83880; 87804 ×2; 70450; 76377; 74176; 71045; 94760 ×2; 96375; 99285; U0003; J0360; J1160; J7614; J0456; J7050; J7030; J2930; J0696; G0378 ×3; 81003; 81015